=== PATIENT | female | born 1945 | race Caucasian/White ===

== ENCOUNTER 2022-03-10 15:16 | Outpatient (CLI) | payer MEDICARE, SELFPAY ==
--- NOTE | 2022-03-10 15:30 | CRLHL7_ITS ---
For Patients: As a result of the Century Cures Act, medical imaging exams and procedure reports are released immediately into your electronic medical record. You may view this report before your referring provider. If you have questions, please contact your health care provider. DXA BONE MINERAL DENSITY STUDY Current height (in): 65.5. Weight (lb): 154. Menopause age: 55. Ethnicity: White. 1. Have you had a previous hip or vertebral fracture? No. 2. Have you had any fractures during your adult life which did not result from significant trauma (e.g., auto accident)? No. 3. Did either of your parents have a hip fracture? No. 4. Do you smoke? No. 5. Have you ever taken Glucocorticoids? No. 6. Do you have rheumatoid arthritis? No. 7. Do you have secondary osteoporosis? No. 8. Do you drink 3 or more alcoholic drinks per day? No. 9. Are you being treated for osteoporosis? No. 10. Have you ever taken any of the following medications: Actonel, Evista, Fosamax, Miacalcin, Reclast, Boniva, Forteo, HRT (i.e. estrogen/hormone therapy), Protelos, Prolia, Vitamin D, Calcium, other ??? please specify. ANSWER: Yes, vitamin D, calcium. 11. Do you have any of the following medical conditions: Anorexia or bulimia, asthma or emphysema, end stage renal disease, hyperparathyroidism, any seizure disorders, cancer, inflammatory bowel diseases, hysterectomy, other ??? please specify. ANSWER: Yes, cancer. 12. What was your maximum height (inches)? 65.5. 13. Do you perform weight bearing exercise regularly? Yes. 14. Do you regularly consume dairy products? Yes. 15. Do you drink caffeinated beverages? Yes. 16. At what age did your period start? 12. 17. Are you premenopausal? No. 18. How many full term pregnancies have you had? 0. 19. Have you ever missed your period for more than 6 months in a row (not including or menopause)? No. TECHNIQUE: Bone mineral density study was performed using the Provasculon. FINDINGS: The results of the study expressed as bone mineral density (BMD) are as follows: Lumbar spine L1 to L3: BMD: 0.918 g/cm2. T-score: -0.9. Z-score: 1.5. Neck Left: BMD: 0.777 g/cm2. T-score: -0.6. Z-score: 1.5. Right: BMD: 0.727 g/cm2. T-score: -1.1. Z-score: 1.1. Total Left: BMD: 0.848 g/cm2. T-score: -0.8. Z-score: 1.1. Right: BMD: 0.801 g/cm2. T-score: -1.2. Z-score: 0.7. IMPRESSION: Osteopenia. *Comparison exams done prior to 01/2020 were performed on different unit, [employer]. COMPARISON: Compared with scan of 2016, the bone mineral density has decreased by 6.9 percent at the spine and decreased by 3.7 percent at the hip. Compared with scan of 2014, the bone mineral density has decreased by 0.5 percent at the spine and decreased by 1.8 percent at the hip. FRAX 10-year Fracture Risk Major Osteoporotic Fracture: 11 percent Hip Fracture: 2.0 percent Reported Risk Factors: [place] () Neck BMD = 0.727, BMI = 25.2 Gonsalo Webster M.D. Diagnostic/Nuclear Medicine Radiologist [email or web address] DELLA/Dictated by: Gonsalo Webster MD @ 03/11/2022 11:18:00 AM (Electronically Signed)
== END 2022-03-10 15:17 | disposition home or self-care (01) ==
PROVIDERS: PCP Family Medicine; Visit Provider Family Medicine
DX: M85.80 Other specified disorders of bone density and structure, unspecified site (principal); M85.89 Other specified disorders of bone density and structure, multiple sites
CPT/HCPCS: 77080

== ENCOUNTER 2022-06-21 10:47 | Outpatient (CLI) | payer MEDICARE, SELFPAY ==
--- NOTE | 2022-06-21 11:00 | CRLHL7_ITS ---
For Patients: As a result of the Century Cures Act, medical imaging exams and procedure reports are released immediately into your electronic medical record. You may view this report before your referring provider. If you have questions, please contact your health care provider. Indication: Left lower quadrant pain Technique: Contrast abdomen and pelvis Comparison: CT abdomen and pelvis 04/24/2019 Findings: Heart size there is normal. Basilar atelectasis. Liver pancreas unremarkable. Tiny too small to characterize low attenuation lesion in the right hepatic lobe. Cholecystectomy biliary dilatation kidneys are unremarkable. Urinary bladder decompressed. Diverticulosis abundant stool in the colon bowel appears unremarkable. No suspicious bony lesions are seen. Impression: 1. No acute findings in the abdomen or pelvis. Diverticulosis. Abundant stool in the colon. Please note that all CT scans at this facility use dose modulation, iterative reconstruction, and/or weight-based dosing when appropriate to reduce radiation dose to as low as reasonably achievable. Dictated by Camilla Denton MD @ 06/21/2022 1:33:53 PM (Electronically Signed)
[2022-06-21 11:15] LABS: Creatinine* 0.6 mg/dL (0.5-1.5); Estimated Glomerular Filt Rate 92 ml/min
== END 2022-06-21 10:48 | disposition home or self-care (01) ==
LOC: CT 10:47
PROVIDERS: PCP Family Medicine; Visit Provider Physician Assistant Medical
DX: R10.32 Left lower quadrant pain (principal)
CPT/HCPCS: 36415; 74177; 82565; Q9967

== ENCOUNTER 2023-03-31 09:38 | Outpatient (CLI) | payer MEDICARE, SELFPAY | END 2023-03-31 09:39 | disposition home or self-care (01) | LOC: NFLDREF 04-06 08:29 | PROVIDERS: PCP Physician Assistant Medical; Referring Provider Physician Assistant Medical; Visit Provider Physician Assistant Medical | DX: D64.9 Anemia, unspecified (principal); D69.6 Thrombocytopenia, unspecified | CPT/HCPCS: 82607; 82746; 83540; 83550 ==

== ENCOUNTER 2023-04-07 08:30 | Outpatient (CLI) | payer MEDICARE, SELFPAY | END 2023-04-07 08:31 | disposition home or self-care (01) | LOC: NFLDREF 04-09 10:57 | PROVIDERS: PCP Physician Assistant Medical; Referring Provider Physician Assistant Medical; Visit Provider Physician Assistant Medical | DX: E78.5 Hyperlipidemia, unspecified (principal); I10 Essential (primary) hypertension | CPT/HCPCS: 80061; 82947 ==

== ENCOUNTER 2023-04-28 14:54 | Outpatient (CLI) | payer MEDICARE, SELFPAY ==
--- NOTE | 2023-04-28 15:00 | CRLHL7_ITS ---
For Patients: As a result of the Cures Act, medical imaging exams and procedure reports are released immediately into your electronic medical record. You may view this report before your referring provider. If you have questions, please contact your health care provider. INDICATION: DISORDER OF THYROID, UNSPECIFIED COMPARISON: none TECHNIQUE: Sapp scale and color Doppler images were acquired of the thyroid gland. FINDINGS: Left thyroid lobe is absent. The right lobe measures 3.9 x 1.5 x 1.4 cm. The thyroid echotexture is heterogeneous. Cystic nodule is present within the lower pole of the right thyroid lobe measuring 6 x 3 x 6 millimeters. The isthmus measures 4 millimeters. The color Doppler images demonstrate increased vascularity. There is no evidence of cervical lymphadenopathy or parathyroid mass. IMPRESSION: Benign cystic nodule lower pole right thyroid lobe measuring 6 millimeters. Heterogeneous echotexture of the remaining thyroid with increased vascularity. Left thyroid lobe is absent. Dictated by Amilcar Vinson MD @ 04/29/2023 11:44:43 AM (Electronically Signed)
== END 2023-04-28 14:55 | disposition home or self-care (01) ==
LOC: US 14:54
PROVIDERS: PCP Physician Assistant Medical; Visit Provider Physician Assistant Medical
DX: E07.9 Disorder of thyroid, unspecified (principal); E04.1 Nontoxic single thyroid nodule
CPT/HCPCS: 76536

== ENCOUNTER 2024-01-23 15:18 | Outpatient (CLI) | payer MEDICARE, SELFPAY ==
--- OUTSIDE RECORDS SUMMARY | 2024-01-23 15:35 | XMS_ITS ---
Author Organization [facility] Address [address] [place] [address] Care Team Providers Care Rn Neonatal Name Role Phone Unavailable Unavailable Unavailable Surgery Details Not on file Complications Check Surgery Details section. Procedure Estimated Blood Loss Check Surgery Details section. Procedure Findings Check Surgery Details section. Procedure Specimens Taken Check Surgery Details section.
--- OUTSIDE RECORDS SUMMARY | 2024-01-23 15:35 | XMS_ITS | Referral Summary ---
Author Organization [facility] Address [address] [place] [address] Care Team Providers Care Fisher Diving Name Role Phone Unavailable Primary Care Provider Unavailabl e Source Comments Patient records contain information from all sites at [facility]. For routine questions regarding patient records, call [phone] during business hours, M-F 8:00 AM - 5:00 PM Central Time. Record requests for emergency care only can be directed to [phone] at any time.[facility] Allergies Active Allergy Reactions Criticality Noted Date Comments Azithromycin Other (see comments) 12/22/2020 Heart palpatations Corticosteroids (Glucocorticoids) Palpitations Medium 04/26/2022 Prednisone Palpitations 04/10/2009 Simvastatin Other (see comments) 04/13/2015 Leg pain Medications Medication Sig Dispensed Refills Start Date End Date Status rosuvastatin (CRESTOR) 5 mg tablet Take 0.5 tablets (2.5 mg total) by mouth daily. 15 tablet 11 05/21/2019 Active Additional Information Patient taking differently: 5 mgoral2 times weekly, Reported on 04/26/[address] tablet Take 81 mg by mouth daily. Active ezetimibe (ZETIA) 10 mg tablet Take 10 mg by mouth daily. 04/08/2021 Active triamcinolone (KENALOG) 0.1 % cream Apply 1 application topically 2 (two) times a week. 12/18/2020 Active polyethylene glycol (MIRALAX) 17 gram/dose oral powder Take 17 g by mouth daily. Active CALCIUM CITRATE-VITAMIN D3 ORAL Take 1 tablet by mouth daily. Citracal Petites Active losartan-hydroCHLOR Othiazide (HYZAAR) 50-12.5 mg per tablet Take 1 tablet by mouth daily. 03/02/2022 Active metoprolol succinate (TOPROL-XL) 25 mg 24 hr tablet 25 mg daily. 12/25/2022 Active amoxicillin (AMOXIL) 500 mg capsule Take 4 caps (2000 mg) 1 hour prior to invasive dental procedure. 4 capsule 11 03/08/2023 Active traZODone (DESYREL) 50 mg tablet Take 50 mg by mouth at bedtime as needed. Active Active Problems Problem Noted Date Diagnosed Date Replacement Aortic Valve Tissue 05/25/2023 Chronic Diastolic (Congestive) Heart Failure Overweight Body Mass Index 25-29.9 Adult 023 Cancer Breast Personal History 03/07/2023 Stenosis Aortic Valve Acquired 04/29/2022 Hyperlipidemia On Treatment 04/29/2022 Atherosclerotic Heart Diseas e Of [place] Coronary Artery Without Angina Pectoris 04/29/2022 Hypertension Essential Primary 04/29/2022 Last Assessment & Plan: Mrs. Diaz is a very pleasant 77-year-old female who was seen in the [facility] for a 1 year follow up of aortic stenosis. She has been doing well over the past year from a heart standpoint. She denies any new cardiopulmonary symptoms today. She continues to be very physically active with walking 2 days a week, playing [employer] ball 1 day a week, and golfing 1 day a week. She also frequently hikes year- round. She is NYHA class 1. I reviewed her test results with her in detail. All of her labs are within normal limits. Her cholesterol levels are well controlled on her current medication regimen. Her NT proBNP is completely normal. Her chest x-ray shows no significant change compared to 04/29/2021 and shows stable borderline cardiac enlargement with aortic calcifications. Her ECG shows normal sinus rhythm. Her TTE from today demonstrated moderate-severe aortic valve stenosis with a systolic mean gradient of 36 mmHg, valve area of 0.93 cm2 and peak aortic valve systolic velocity of 3.9 m/sec. On physical exam she has a 3/6 systolic ejection murmur that is late peaking and radiates to the carotids and apex. She has preserved S2 and normal carotid upstroke. She appears euvolemic. Her blood pressures are well controlled on her new antihypertensive regimen. At the present time she has asymptomatic moderate-severe aortic stenosis and does not yet meet criteria for aortic valve replacement. We discussed symptoms to be watchful for and recommend follow-up in 6 months or sooner if she develops symptoms. She was commended on her commitment to her health with joining weight watchers and monitoring her blood pressures. I have encouraged her to continue to be as physically active as tolerated. Immunizations Name Administration Dates Next Due Influenza Split 05/15/2008 Social History Tobacco Use Types Packs/Day Years Used Date Smoking Tobacco: Former Cigarettes Smokeless Tobacco: Never Tobacco Cessation:Counseling Given: Not Answered Comments:Smoked socially for about 2 years while in teens Alcohol Use Standard Drinks/Week Comments Yes 0 (1 standard drink = 0.6 oz pur e alcohol) occ. social drink Humiliation, Afraid, Rape, and Kick questionnair e Answer Date Recorded Within the last year, have y ou been afraid of your partner or ex-partner? No 02/25/2023 Within the last year, have y ou been humiliated or emotionally abused in other ways by your partner or ex-partner? No Within the last year, have y ou been kicked, hit, slapped, or otherwise physically hurt by your partner or ex-partner? No 02/25/2023 Within the last year, have y ou been raped or forced to have any kind of sexual activity by your partner or ex-partner? No 02/25/2023 Social Connection and Isolat ion Panel [NHANES] Answer Date Recorded Frequency of Communication w ith Friends and Family Three times a week 05/16/2019 Frequency of Social Gatherin gs with Friends and Family Twice a week 05/16/2019 Attends Yazdanism Services More than 4 times per year 05/16/2019 Active Member of Clubs or Organizations Yes 05/16/2019 Attends Club or Organization Meetings More than 4 times per year 05/16/2019 Marital Status 05/16/2019 AUDIT-C Answer Date Recorded Frequency of Alcohol Consumption Monthly or less 02/03/2019 Average Number of Drinks 1 or 2 019 Frequency of Binge Drinking Never 01/14 Overall Financial Resource Strain (CARDIA) Answe r Date Recorded How hard is it for you to pa y for the very basics like food, housing, medical care, and heating? Not hard at all 02/25/2023 [facility] - Occupational Stress Questionnaire Answer Date Recorded Feeling of Stress Not at all 02/03/2019 Exercise Vital Sign Answer Date Recorde d On average, how many days pe r week do you engage in moderate to strenuous exercise (like a brisk walk)? 6 days 02/22/2023 On average, how many minutes do you engage in exercise at this level? 60 min 02/22/2023 Hunger Vital Sign Answer Date Recorded Within the past 12 months, y ou worried that your food would run out before you got the money to buy more. Never true 02/26/20 Within the past 12 months, t he food you bought just didn't last and you didn't have money to get more. Never true 02/25/2023 PRAPARE - Transportation Answer Date Re corded In the past 12 months, has l ack of transportation kept you from medical appointments or from getting medications? No 02/12 In the past 12 months, has l ack of transportation kept you from meetings, work, or from getting things needed for daily living? No 02/25/2023 Nutrition Answer Date Recorded Nutrition: EVOO Fat Source Unknown 02/22 On average, how many serving s of fruits and vegetables do you eat per day (serving size is equal to 1 cup or approximately the size of a tennis ball)? 3-5 02/22/2023 Dental Answer Date Recorded Dental: Regular Dentist Yes 02/23/20 Employment Answer Date Recorded Employment status Retired 02/22/2023 Housing Stability Answer Date Recorded What is your living situation today? I have a [place] place to live 02/25/2023 Education Answer Date Recorded What is the highest level of school you have completed or the highest degree you have received? Bachelor's degree (e.g., BA, AB, BS) 02/02/2019 Sex and Gender Information Value Date Recorded Sex Assigned at Female 02/22/2023 10:38 AM CDT Gender Identity Female 02/02/2019 9:17 PM CDT Sexual Orientation Straight 02/02/2019 9: 17 PM CDT Last Filed Vital Signs Vital Sign Reading Time Taken Comments Blood Pressure 115/67 05/25/2023 8:35 AM CDT Pulse 70 05/25/2023 8:35 AM CDT Temperature 36.4 ??C (97.5 ??F) 03/25/2023 4:05 PM CD T Respiratory Rate 14 03/25/2023 4:05 PM CDT Oxygen Saturation 96% 03/25/2023 4:05 PM CDT Inhaled Oxygen Concentration - - Weight 71.3 kg (157 lb 3 oz) 03/21/2023 9:06 AM CDT Height 167.3 cm (5' 5.87) 03/21/2023 9:06 AM CD T Body Mass Index 25.47 03/21/2023 9:06 AM CDT Plan of Treatment Upcoming Encounters Date Type Department Care Team (Latest Contact Info) Description 03/05/2024 10:15 AM CDT Clinical Communication Virtual Review in [place], [place] [address] [place] [phone] 03/08/2024 9:15 AM CDT Appointment Department of Radiology, [facility] in [place], [place] [address] [place] [phone] Shoshana Araujo APRN, C.NNicholasP., M.S.N. [address] [place] [phone] 03/08/2024 9:40 AM CDT Ancillary Procedure Department of Cardiovascular Medicine in [place], [place] [address] [place] [phone] Shoshana Araujo APRN, C.N.P., M.S.N. [address] [place] [phone] 03/08/2024 11:50 AM CDT Appointment Department of Laboratory Medicine and Pathology, [facility] in [place], [place] [address] [place] [phone] Shoshana Araujo APRN, C.N.Shelly., M.S.N. [address] [place] [phone] 03/08/2024 1:05 PM CDT Appointment Department of Cardiovascular Diseases in [place], [place] [address] [place] [phone] Shoshana Araujo APRN, C.NGilmar, M.S.N. [address] [place] [phone] Discharge Disposition: Home or Self Care 03/08/2024 4:00 PM CDT Office Visit Department of Cardiovascular Medicine in [place], [place] [address] [place] [phone] Derrick Malloy Jr., M.D. [address] [place] [phone] Medical Devices Implanted Type Area Robotics Engineer Device Identifier Shelf Expiration Date Model / Serial / Lot Breast Implant Breast Implant Bilateral : Breast Vlv Dayan S3 Ultra 23 - [id number] - [id number] Implanted:Qty : 1 on 03/07/2023 by Carrington Castillo M.D., Ph.D. at [facility] Cardiac Valve Prosthesis N/A: Heart [employer] 06/16/2025 [id number] / [id number] / Description:Aortic Valve Ocular Lens Ocular Lens Bilateral : Eye Procedures Procedure Name Priority Date/Time Associated Diagnosis Comments BASIC METABOLIC PANEL, S/P Routine 05/24/2023 1:02 PM CDT Chronic Diastolic (Congestive) Heart Failure (HCC) Stenosis Aortic Valve Acquired Atherosclerotic Heart Disease Of [place] Coronary Artery Without Angina Pectoris from Last 3 Months or Most Recently Relevant to Health Maintenance Results * (ABNORMAL) Basic Metabolic Panel (05/24/2023 1:02 PM CDT) [facility] Signature Potassium, S 4.9 3.6 - 5.2 mmol/L 05/24/2023 2:12 PM CDT DTL Sodium, S 142 135 - 145 mmol/L 05/24/2023 2:12 PM CDT DTL Chloride, S 103 98 - 107 mmol/L 05/24/2023 2:12 PM CDT DTL Bicarbonate, S 30(H) 22 - 29 mmol/L 05/24/2023 2:12 PM CDT DTL Anion Gap 9 7 - 15 05/24/2023 2:12 PM CDT DTL BUN (Blood Urea Nitrogen), S 20 6 - 21 mg/dL 05/24/2023 2:12 PM CDT DTL Creatinine 0.73 0.59 - 1.04 mg/dL 05/24/2023 2:12 PM CDT DTL Estimated GFR (eGFR) 84 >=60 mL/min/BSA 05/24/2023 2:12 PM CDT DTL Comment: Estimated GFR calculated using the 2020 CKD_EPI creatinine equation. Calcium, Total, S 9.5 8.8 - 10.2 mg/dL 05/24/2023 2:12 PM CDT DTL Glucose, S 144(H) 70 - 140 mg/dL 05/24/2023 2:12 PM CDT DTL Blood (Blood, Venous) 05/24/2023 1:02 PM CDT 05/24/2023 1:40 PM CDT Karine Stevenson APRNNRamon., M.S.N. LAB BLOOD ADD-ON [facility] [address] [place] [address], [facility] [address] [place] [address] from Last 3 Months or Most Recently Relevant to Health Maintenance Advance Directives For more information, please contact: [phone] * Full Code (Latest Code Status on File) Date Activated Date Inactivated Comments 03/07/2023 11:55 AM 03/08/2023 1:14 PM Question Answer Comments Full Code: Discussed
--- OUTSIDE RECORDS SUMMARY | 2024-01-23 15:35 | XMS_ITS | Clinical Summary ---
Author Organization [facility] Address [place], [place] [address] Care Team Providers Care Psychiatric Assistant Name Role Phone Claudia Ren PA-C Primary Care Provider [phone] Allergies Active Allergy Reactions Criticality Noted Date Comments Corticosteroids (Glucocorticoids) Palpitations Medium 04/10/2009 Simvastatin Myalgia 04/13/2015 Leg pain Medications Medication Sig Dispensed Refills Start Date End Date Status CALCIUM 600 600 MG ORAL TAB None Entered 0 Active aspirin (ECOTRIN) 81 mg enteric coated tablet Take 81 mg by mouth. Active ezetimibe (ZETIA) 10 mg tablet Take 1 Tablet (10 mg) by mouth once daily. 0 06/22/2022 Active rosuvastatin (CRESTOR) 5 mg tablet Take 1 Tablet (5 mg) by mouth every Tuesday and Tuesday. 0 06/22/2022 Active polyethylene glycol (Miralax) 17 g powder for solution Mix 17 g (1 Packet) in liquid then take by mouth once daily. 0 06/22/2022 Active sennosides (Senna Laxative) 8.6 mg tablet Take 1 Tablet (8.6 mg) by mouth once daily if needed for Constipation. 0 06/22/2022 Active loratadine (Claritin) 10 mg tablet Take 1 Tablet (10 mg) by mouth once daily if needed for Allergy Symptoms. 0 06/22/2022 Active docusate (Stool Softener) 50 mg capsule Take 1 Capsule (50 mg) by mouth two times daily. 0 07/01/2022 Active metoprolol succinate (Toprol XL) 25 mg Sustained-Release tabletIndications:Atri al fibrillation, unspecified type (HC) Take 1 Tablet (25 mg) by mouth once daily. 90 Tablet 3 07/01/2022 Active losartan-hydrochloroth iazide, 50-12.5 mg, (Hyzaar) 50-12.5 mg tabletIndications:Prim abdi hypertension Take 1 Tablet by mouth once daily. Take 1/2 tablet daily 90 Tablet 1 05/02/2023 Active Active Problems Problem Noted Date Diagnosed Date Sensorineural hearing loss (SNHL) of both ears 1 08/23/2022 Aortic valve stenosis 04/29/2022 Atherosclerotic heart diseas e of [place] coronary artery without angina pectoris 04/29/2022 Primary hypertension 04/29/2022 Overview: Last Assessment & Plan: Mrs. Diaz is a very pleasant 77-year-old female who was seen in the [facility] for a 1 year follow up of aortic stenosis. She has been doing well over the past year from a heart standpoint. She denies any new cardiopulmonary symptoms today. She continues to be very physically active with walking 2 days a week, playing [employer] ball 1 day a week, and golfing [...] to be as physically active as tolerated. Hyperlipidemia 05/23/2012 Overview: Other and unspecified hyperlipidemia Hyperparathyroidism 05/23/2012 Overview: S/p partial paroidectomy Migraine 05/23/2012 Osteoarthritis of multiple joints 05/23/2012 Overview: Osteoarthrosis involving, or with mention of more than one site, but not specified as generalized, multiple sites Osteopenia 05/23/2012 Rheumatoid factor positive 05/23/2012 S/P partial thyroidectomy 05/23/2012 Social History Tobacco Use Types Packs/Day Years Used Date Smoking Tobacco: Former Cigarettes 0.1 3 Smokeless Tobacco: Never Alcohol Use Standard Drinks/Week Comments Yes 0 (1 standard drink = 0.6 oz pur e alcohol) 1 drink monthly Social Connections Answer Date Recorded Frequency of Communication with Friends and Fami ly Not on file 06/22/2022 Sex and Gender Information Value Date Recorded Sex Assigned at Not on file Gender Identity Not on file Sexual Orientation Not on file Obstetrics History Last Filed Vital Signs Vital Sign Reading Time Taken Comments Blood Pressure 134/82 07/01/2022 3:35 PM CUT FILE CLERK Pulse 76 07/01/2022 3:35 PM CUT FILE CLERK Temperature - - Respiratory Rate 16 06/22/2022 3:59 PM CUT FILE CLERK Oxygen Saturation 97% 07/01/2022 3:35 PM CUT FILE CLERK Inhaled Oxygen Concentration - - Weight 70.8 kg (156 lb) 07/01/2022 3:35 PM CUT FILE CLERK Height 165.1 cm (5' 5) 07/01/2022 3:35 PM CUT FILE CLERK Body Mass Index 25.96 07/01/2022 3:35 PM CUT FILE CLERK Plan of Treatment Health Maintenance Due Date Last Done Comments Tdap 02/16/1956 Depression screening for age 12+ 1957 Hepatitis C screening for ag e 18-79 1963 Tetanus booster 1965 Zoster (shingles) series for age 50+ (1 of 2) 1995 DEXA/DXA scan for age 65+ 2010 Medicare Wellness for age 65+ 2010 Pneumococcal series for age 65+ (1 of 1 - PCV) 2010 BMI (ht and wt on same day) for age 18+ 07/01/2023 07/01/2022 COVID-19 vaccine series (2022- season) 2023 06/09/2023, 06/09/2022, 12/24/2021, Additional history exists Influenza for age 65+ 04/15/2024 Care Teams Psychiatric Assistant Relationship Specialty Start Date End Date Claudia Ren PA-C [address] [place] [address] PCP - General Emergency Medicine 06/11/22
--- OUTSIDE RECORDS SUMMARY | 2024-01-23 15:35 | XMS_ITS | Clinical Summary ---
Author Organization [facility] Address [address] [place] [address] Care Team Providers Care Acquisition Marketing Manager Name Role Phone Unavailable Primary Care Provider Unavailabl e Source Comments Patient records contain information from all sites at [facility]. For routine questions regarding patient records, call [phone] during business hours, M-F 8:00 AM - 5:00 PM Central Time. Record requests for emergency care only can be directed to [phone] at any time.[facility] Allergies Active Allergy Reactions Criticality Noted [...] Treatment 04/29/2022 Atherosclerotic Heart Diseas e Of [place] Coronary Artery Without Angina Pectoris 04/29/2022 Hypertension Essential Primary 04/29/2022 Last Assessment & Plan: Mrs. Diaz is a very pleasant 77-year-old female who was seen in the [facility] for a 1 year follow up of aortic stenosis. She has been doing well over the past year from a heart standpoint. She denies any new cardiopulmonary symptoms today. She continues to be very physically active with walking 2 days a week, playing [email or web address] ball 1 day a week, and golfing [...] and Family Twice a week 05/16/2019 Attends [employer] Services More than 4 times per year [...] and heating? Not hard at all 02/25/2023 [facility] [place] of Occupat ional Health - Occupational Stress [...] AM CDT Clinical Communication Virtual Review in [place], [place] [address] [place] [address] 03/08/2024 9:15 AM CDT Appointment Department of Radiology, [facility] in [place], [place] [address] [place] [phone] Shoshana Araujo APRN, C.NNicholasP., M.S.N. [address] [place] [phone] 03/08/2024 9:40 AM CDT Ancillary Procedure Department of Cardiovascular Medicine in [place], [place] [address] [place] [phone] Shoshana Araujo APRN, C.N.P., M.S.N. [address] [place] [phone] 03/08/2024 11:50 AM CDT Appointment Department of Laboratory Medicine and Pathology, [facility] in [place], [place] [address] [place] [phone] Shoshana Araujo APRN, C.N.P., M.S.N. [address] [place] [phone] 03/08/2024 1:05 PM CDT Appointment Department of Cardiovascular Diseases in [place], [place] [address] [place] [phone] Shoshana Araujo APRN, C.N.P., M.S.N. [address] [place] [phone] Discharge Disposition: Home or Self Care 03/08/2024 4:00 PM CDT Office Visit Department of Cardiovascular Medicine in [place], [place] [address] [place] [phone] Derrick Malloy Jr., M.D. [address] [place] [phone] Health Maintenance Due Date Last Done Comments Hepatitis C Screening 1945 Depression Screening (Annual PHQ-2) 08/15/2023 Fall Risk Screen (Annual) 08/15/2023 COVID-19 Vaccine (2022-2 4 season) 2023 06/09/2023, 06/09/2022, 12/24/2021, Additional history exists Creatinine Level (Kidney Fun ction Test) 05/24/2024 05/24/2023, 02/28/2023, 02/28/2023, Additional history exists Potassium Level 05/24/2024 05/24/2023, 02/12, 04/29/2022, Additional history exists Sodium Level 05/24/2024 05/24/2023, 02/12, 04/29/2022, Additional history exists Office Visit for Blood Press ure Check / Re-check 05/25/2024 05/25/2023 DTaP,Tdap,and Td Vaccines (3 - Td or Tdap) 06/22/2031 06/22/2021, 03/09/2011, 02/16/2005 Pneumococcal vaccine (65+ years) Completed 07, 03/03/2010 Zoster Vaccines Completed 06/01/2021, 03/18/2021 Influenza Vaccine Completed 06/09/2023, , 06/01/2021, Additional history exists Medical Devices Implanted Type Area Carbon Brush Maker Device Identifier Shelf Expiration Date Model / Serial / Lot Breast Implant Breast Implant Bilateral : Breast Vlv Dayan S3 Ultra 23 - [id number] - [id number] Implanted:Qty : 1 on 03/07/2023 by Carrington Castillo M.D., Ph.D. at [facility] Cardiac Valve Prosthesis N/A: Heart [employer] 06/16/2025 [id number] / [id number] / Description:Aortic Valve Ocular Lens Ocular Lens Bilateral : Eye Procedures Procedure Name Priority Date/Time Associated Diagnosis Comments BASIC METABOLIC PANEL, S/P Routine 05/24/2023 1:02 PM CDT Chronic Diastolic (Congestive) Heart Failure (HCC) Stenosis Aortic Valve Acquired Atherosclerotic Heart Disease Of [place] Coronary Artery Without Angina Pectoris from Last 3 Months or Most Recently Relevant to Health Maintenance Results * (ABNORMAL) Basic Metabolic Panel (05/24/2023 1:02 PM CDT) Potassium, S 4.9 3.6 - 5.2 mmol/L [...] Karine Stevenson APRNNRamon., M.S.N. LAB BLOOD ADD-ON [facility] [address] [place] [address], [place] [facility] [address] [place] [address] from Last 3 Months or Most Recently Relevant to Health Maintenance Advance Directives For more information, please contact: [phone] * Full Code (Latest Code Status on File) Date Activated Date Inactivated Comments 03/07/2023 11:55 AM 03/08/2023 1:14 PM Question Answer Comments Full Code: Discussed
--- OUTSIDE RECORDS SUMMARY | 2024-01-23 15:35 | XMS_ITS | Referral Summary ---
Author Organization [facility] Address [address] [place] [address] Care Team Providers Care Casket Upholsterer Name Role Phone Claudia Ren PA-C Primary Care Provider Social History Tobacco Use Types Packs/Day Years Used Date Smoking Tobacco: Never Assessed Adolescent Education Answer Date Record ed Getting School Help Needed Not on file 05/29 Sex and Gender Information Value Date Recorded Sex Assigned at Not on file Gender Identity Not on file Sexual Orientation Not on file Plan of Treatment Not on file Procedures Procedure Name Priority Date/Time Associated Diagnosis Comments COMPREHENSIVE METABOLIC PANEL STAT 12/22/2004 5:05 PM CDT from Last 3 Months or Most Recently Relevant to Health Maintenance Results * (ABNORMAL) Comprehensive metabolic panel (12/22/2004 5:05 PM CDT) Sodium 141 133 - 144 mmol/L [facility] Potassium 4.4 3.4 - 5.3 mmol/L [facility] Chloride 107 94 - 109 mmol/L [facility] Carbon Dioxide 28 20 - 32 mmol/L [facility] Glucose 93 60 - 110 mg/dL [facility] Urea Nitrogen 21 7 - 30 mg/dL [facility] Creatinine 0.80 0.60 - 1.30 mg/dL [facility] GFR Estimate 78 >60 mL/min/1.7 m2 [facility] GFR Estimate If Black >80 >60 mL/min/1.7 m2 [facility] Calcium 9.4 8.5 - 10.4 mg/dL [facility] AST 27 0 - 45 U/L [facility] Protein Total 6.4 6.0 - 8.2 g/dL [facility] Anion Gap 6 6 - 17 mmol/L [facility] Albumin 3.5 3.2 - 4.5 g/dL [facility] ALT 25 0 - 50 U/L [facility] Alkaline Phosphatase 166(H) 40 - 150 U/L [facility] Bilirubin Total 0.3 0.2 - 1.3 mg/dL [facility] 12/22/2004 5:05 PM CDT 12/22/2004 4:40 PM CDT Moody Marks MD LAB - BLOOD ORD ERABLES [facility] from Last 3 Months or Most Recently Relevant to Health Maintenance Care Teams Casket Upholsterer Relationship Specialty Start Date End Date Claudia Ren PA-C [facility] [address] [place] [address] PCP - General Physician Day Care Home Mother 03/15/23
--- OUTSIDE RECORDS SUMMARY | 2024-01-23 15:35 | XMS_ITS | Clinical Summary ---
Author Organization [facility] Address [address] [place] [address] Care Team Providers Care Early Morning Name Role Phone Needs Pcp, Assignment Primary Care Provider [phone] Source Comments You are receiving this document as you are listed as the primary care provider,follow-up provider, or the patient has been referred to you for consultation.This is in compliance with the Medicare and[facility] EHR Incentive Program,which states Providers who transition their patient to another setting of careor provider of care or refers their patient to another provider of care shouldprovide summary care record for each transition of care or referral. [facility] Allergies Active Allergy Reactions Criticality Noted Date Comments Prednisone Palpitations 05/23/2012 Azithromycin Other, see comments 12/22/2020 Heart palpatations Medications Medication Sig Dispensed Refills Start Date End Date Status ibuprofen (AKA MOTRIN) 200 MG tablet Take by mouth. 400-600 mg up to 3 times a day when stomach is not empty. 30 tablet 0 05/23/2012 Active acetaminophen (AKA TYLENOL EXTRA STRENGTH) 500 MG tablet Take 1-2 tablets by mouth every 6 hours as needed for Pain. Maximum 4000 mg per 24 hours 100 tablet 0 05/23/2012 Active SUMAtriptan (AKA IMITREX) 50 MG tablet Take 50 mg by mouth as needed. May repeat after 2 hours if needed. Max 4 tab/24 hours. Max 9 days/month 05/23/2012 Active Cholecalciferol 400 UNITS Take by mouth 2 times daily. 05/23/2012 Active pravastatin (AKA PRAVACHOL) 10 MG tablet Take 10 mg by mouth daily (every 24 hours). 05/23/2012 Active Coenzyme Q10 (COQ-10 OR) Take 100 mg by mouth daily (every 24 hours). 05/23/2012 Active omega-3 fatty acids (FISH OIL) 1000 MG capsule Take by mouth. 05/23/2012 Active Calcium Carb-Cholecalciferol 600-1000 MG-UNIT TABS Take by mouth. 05/23/2012 Active magnesium 250 MG Take by mouth. 05/23/2012 Acti ve aspirin EC (ASPIRIN LOW DOSE) 81 MG enteric coated tablet Active EZETIMIBE-ATORVASTAT IN OR 12/18/2020 Active Rosuvastatin Calcium 5 MG CPSP Active triamcinolone acetonide (TRIDERM) 0.1 % cream 12/18/2020 Active Active Problems Problem Noted Date Diagnosed Date Headache 05/23/2012 Overview: Headache(784.0) Hyperparathyroidism 05/23/2012 Overview: S/p partial paroidectomy Hyperlipidemia 05/23/2012 Overview: Other and unspecified hyperlipidemia Osteopenia 05/23/2012 Migraine 05/23/2012 S/P partial thyroidectomy 05/23/2012 Osteoarthritis of multiple joints 05/23/2012 Overview: Osteoarthrosis involving, or with mention of more than one site, but not specified as generalized, multiple sites Rheumatoid factor positive 05/23/2012 Immunizations Name Administration Dates Next Due Flu Vac Preserv Free (3+yrs) 04/26/2012 Social History Tobacco Use Types Packs/Day Years Used Date Smoking Tobacco: Never Assessed Sex and Gender Information Value Date Recorded Sex Assigned at Not on file Gender Identity Not on file Sexual Orientation Not on file Last Filed Vital Signs Vital Sign Reading Time Taken Comments Blood Pressure 134/71 05/23/2012 1:29 PM CDT Pulse 73 05/23/2012 1:29 PM CDT Temperature - - Respiratory Rate - - Oxygen Saturation - - Inhaled Oxygen Concentration - - Weight 71.2 kg (157 lb) 05/23/2012 1:29 PM CDT Height - - Body Mass Index - - Plan of Treatment Health Maintenance Due Date Last Done Comments Hep C Screening (Preventive Services) 1945 Medicare Welcome Visit 1945 Zoster/Shingles (1 of 2) 1995 Dexa 2010 DTaP/Tdap/Td (2 - Tdap) 03/09/2021 03/09/2011, 02/16 COVID-19 Vaccine (3 - season) 2023 09/25/2020, 09/04/2020 Influenza (Season Ended) 2024 020, 06/07/2019, 06/03/2019, Additional history exists Pneumococcal 65+ Yrs Completed 02/24/2015, 03/03/20 10 HepA Aged Out No longer eligi ble based on patient's age to complete this topic HepB Aged Out No longer eligi ble based on patient's age to complete this topic Hib Aged Out No longer eligi ble based on patient's age to complete this topic IPV (Polio) Aged Out No longer eligi ble based on patient's age to complete this topic MCV4 Aged Out No longer eligi ble based on patient's age to complete this topic Care Teams Early Morning Relationship Specialty Start Date End Date Needs Pcp, [place] [address] PCP - General 06/05/21
--- OUTSIDE RECORDS SUMMARY | 2024-01-23 15:35 | XMS_ITS | Clinical Summary ---
Author Organization [facility] Address [address] [place] [address] Care Team Providers Care Gum Rolling Machine Operator Name Role Phone Claudia Ren PA-C Primary Care Provider Social History Tobacco Use Types Packs/Day Years Used Date Smoking Tobacco: Never Assessed Adolescent Education Answer Date Record ed Getting School Help Needed Not on file 05/29 Sex and Gender Information Value Date Recorded Sex Assigned at Not on file Gender Identity Not on file Sexual Orientation Not on file Plan of Treatment Health Maintenance Due Date Last Done Comments ADVANCE CARE PLANNING 1945 ANNUAL REVIEW OF HM ORDERS 1945 DEXA 1945 HEPATITIS C SCREENING 1963 LIPID 1985 RSV VACCINE ( & 60+) (1 - 1-dose 60+ series) 2005 GLUCOSE 12/23/2007 12/22/2004 FALL RISK ASSESSMENT 2010 MEDICARE ANNUAL WELLNESS VISIT 2010 COVID-19 Vaccine ( season) 2023 06/09/2022, 12/24/2021, 06/05/2021, Additional history exists PHQ-2 (once per calendar year) 2023 INFLUENZA VACCINE (Season Ended) 2024 06/09/2022, 06/01/2021, 06/04/2020, Additional history exists DTAP/TDAP/TD IMMUNIZATION (3 - Td or Tdap) 06/22/2031 06/22/2021, 03/09/2011, 02/16/2005 Pneumococcal Vaccine: 65+ Years Completed 02/24/2015, 03/03/2010 ZOSTER IMMUNIZATION Completed 06/01/2021, HPV IMMUNIZATION Aged Out No longer e ligible based on patient's age to complete this topic IPV IMMUNIZATION Aged Out No longer e ligible based on patient's age to complete this topic MENINGITIS IMMUNIZATION Aged Out No l onger eligible based on patient's age to complete this topic RSV MONOCLONAL ANTIBODY Aged Out No l onger eligible based on patient's age to complete this topic Procedures Procedure Name Priority Date/Time Associated Diagnosis [...] Recently Relevant to Health Maintenance Care Teams Gum Rolling Machine Operator Relationship Specialty Start Date End Date Claudia Ren PA-C [facility] [address] [place] [address] PCP - General Physician Chemical Manager 03/15/23
== END 2024-01-23 15:19 | disposition home or self-care (01) ==
PROVIDERS: PCP Physician Assistant Medical; Visit Provider Internal Medicine
DX: I10 Essential (primary) hypertension (principal); E78.5 Hyperlipidemia, unspecified; M85.80 Other specified disorders of bone density and structure, unspecified site
CPT/HCPCS: 80048; 80061; 82306

== ENCOUNTER 2024-02-22 14:11 | Outpatient (CLI) | payer MEDICARE, SELFPAY ==
--- OUTSIDE RECORDS SUMMARY | 2024-02-22 14:14 | XMS_ITS | Clinical Summary ---
Author Organization [facility] Address [address] [place] [address] Care Team Providers Care Surgical Aide Name Role Phone Claudia Ren PA-C Primary [...] Recently Relevant to Health Maintenance Care Teams Surgical Aide Relationship Specialty Start Date End Date Claudia Ren PA-C [facility] [address] [place] [address] PCP - General Physician Electrical Electronics Engineers 03/15/23
--- OUTSIDE RECORDS SUMMARY | 2024-02-22 14:14 | XMS_ITS | Referral Summary ---
Author Organization [facility] Address [address] [place] [address] Care Team Providers Care Park Services Specialist Name Role Phone Claudia Ren PA-C Primary [...] Recently Relevant to Health Maintenance Care Teams Park Services Specialist Relationship Specialty Start Date End Date Claudia Ren PA-C [facility] [address] [place] [address] PCP - General Physician Tong Hooker 03/15/23
--- OUTSIDE RECORDS SUMMARY | 2024-02-22 14:15 | XMS_ITS | Clinical Summary ---
Author Organization [facility] Address [address] [place] [address] Care Team Providers Care Preconstruction Manager Name Role Phone Needs Pcp, Assignment Primary Care Provider [phone] Source Comments You are receiving this document as you are listed as the primary care provider,follow-up provider, or the patient has been referred to you for consultation.This is in compliance with the Medicare and[facility] Hospital[facility] EHR Incentive Program,which states Providers who transition their patient to another setting of careor provider of care or refers their patient to another provider of care shouldprovide summary care record for each transition of care or referral. [facility] Allergies Active Allergy Reactions Criticality Noted Date [...] (3 - season) 2023 09/25/2020, 09/04/2020 Influenza (#1) 2024 06/04/2020, 05/16, 06/03/2019, Additional history exists Pneumococcal 65+ Yrs [...] age to complete this topic Care Teams Preconstruction Manager Relationship Specialty Start Date End Date Needs Pcp, [place] [address] PCP - General 06/05/21
--- OUTSIDE RECORDS SUMMARY | 2024-02-22 14:15 | XMS_ITS | Clinical Summary ---
Author Organization [facility] Address [place], [place] [address] Care Team Providers Care Grounds Maintenance Supervisor Name Role Phone Claudia Ren PA-C Primary Care Provider [phone] Allergies Active Allergy Reactions Criticality Noted Date [...] stenosis 04/29/2022 Atherosclerotic heart diseas e of [place] coronary artery without angina pectoris 04/29/2022 Primary hypertension 04/29/2022 Overview: Last Assessment & Plan: Mrs. Diaz is a very pleasant 77-year-old female who was seen in the [facility] for a 1 year follow up of aortic stenosis. She has been doing well over the past year from a heart standpoint. She denies any new cardiopulmonary symptoms today. She continues to be very physically active with walking 2 days a week, playing [employer] ball 1 day a week, and golfing [...] Comments Blood Pressure 134/82 07/01/2022 3:35 PM SOLVENT PLANT OPERATOR Pulse 76 07/01/2022 3:35 PM SOLVENT PLANT OPERATOR Temperature - - Respiratory Rate 16 06/22/2022 3:59 PM SOLVENT PLANT OPERATOR Oxygen Saturation 97% 07/01/2022 3:35 PM SOLVENT PLANT OPERATOR Inhaled Oxygen Concentration - - Weight 70.8 kg (156 lb) 07/01/2022 3:35 PM SOLVENT PLANT OPERATOR Height 165.1 cm (5' 5) 07/01/2022 3:35 PM SOLVENT PLANT OPERATOR Body Mass Index 25.96 07/01/2022 3:35 PM SOLVENT PLANT OPERATOR Plan of Treatment Health Maintenance Due Date [...] Influenza for age 65+ 04/15/2024 Care Teams Grounds Maintenance Supervisor Relationship Specialty Start Date End Date Claduia Ren PA-C [address] [place] [address] PCP - General Emergency Medicine 06/11/22
--- OUTSIDE RECORDS SUMMARY | 2024-02-22 14:15 | XMS_ITS | Clinical Summary ---
Author Organization [facility] Address [address] [place] [address] Care Team Providers Care Electric Switch Tester Name Role Phone Unavailable Primary Care Provider Unavailabl e Source Comments Patient records contain information from all sites at [facility]. For routine questions regarding patient records, call [phone] during business hours, M-F 8:00 AM - 5:00 PM Central Time. Record requests for emergency care only can be directed to [phone] at any time.[facility] Allergies Active Allergy Reactions Criticality Noted [...] Treatment 04/29/2022 Atherosclerotic Heart Diseas e Of [place] Coronary Artery Without Angina Pectoris 04/29/2022 Hypertension Essential Primary 04/29/2022 Last Assessment & Plan: Mrs. Diaz is a very pleasant 77-year-old female who was seen in the [facility] for a 1 year follow up of aortic stenosis. She has been doing well over the past year from a heart standpoint. She denies any new cardiopulmonary symptoms today. She continues to be very physically active with walking 2 days a week, playing [employer] ball 1 day a week, and golfing [...] and Family Twice a week 05/16/2019 Attends [employer] Services More than 4 times per year [...] and heating? Not hard at all 02/25/2023 [facility] [place] of Occupat ional Health - Occupational Stress [...] AM CDT Clinical Communication Virtual Review in [place], [place] 200 [place] [phone] 03/08/2024 9:15 AM CDT Appointment Department of Radiology, [place], [place] [address] [place] [phone] Shoshana Araujo APRN, C.N.P., M.S.N. [address] [place] [phone] 03/08/2024 9:40 AM CDT Ancillary Procedure Department of Cardiovascular Medicine in [place], [place] [address] [place] [phone] Shoshana Araujo APRN, C.N.P., M.S.N. [address] [place] [phone] 03/08/2024 11:50 AM CDT Appointment Department of Laboratory Medicine and Pathology, [facility] in [place], [place] [address] [place] [phone] Shoshana Araujo APRN, C.N.P., M.S.N. [address] [place] [phone] 03/08/2024 1:05 PM CDT Appointment Department of Cardiovascular Diseases in [place], [place] [address] [place] [phone] Shoshana Araujo APRN, C.N.P., M.S.N. [address] [place] [phone] Discharge Disposition: Home or Self Care 03/08/2024 4:00 PM CDT Office Visit Department of Cardiovascular Medicine in [place], [place] [address] [place] [phone] Derrick Malloy Jr., M.D. [address] [place] [phone] Health Maintenance Due Date Last Done Comments Hepatitis C Screening 1945 Depression Screening (Annual PHQ-2) 08/15/2023 Fall Risk Screen (Annual) 08/15/2023 COVID-19 Vaccine (2022-09 4 season) 2023 06/09/2023, 06/09/2022, 12/24/2021, Additional history exists Influenza Vaccine (#1) 2024 , 06/09/2022, 06/01/2021, Additional history exists Creatinine Level (Kidney Fun ction Test) 05/24/2024 05/24/2023, 02/28/2023, 02/28/2023, Additional history exists Potassium Level 05/24/2024 05/24/2023, 02/12, 04/29/2022, Additional history exists Sodium Level 05/24/2024 05/24/2023, 02/12, 04/29/2022, Additional history exists Office Visit for Blood Press ure Check / Re-check 05/25/2024 05/25/2023 DTaP,Tdap,and Td Vaccines (3 - Td or Tdap) 06/22/2031 06/22/2021, 03/09/2011, 02/16/2005 Pneumococcal vaccine (65+ years) Completed 02/25/20 15, 03/03/2010 Zoster Vaccines Completed 06/01/2021, 03/18/2021 Medical Devices Implanted Type Area Committee Member Device Identifier Shelf Expiration Date Model / Serial / Lot Breast Implant Breast Implant Bilateral : Breast Vlv Dayan S3 Ultra 23 - [id number] - [id number] Implanted:Qty : 1 on 03/07/2023 by Carrington Castillo M.D., Ph.D. at [facility] Cardiac Valve Prosthesis N/A: Heart [employer] 06/16/2025 [id number] / [id number] / Description:Aortic Valve Ocular Lens Ocular Lens Bilateral : Eye Procedures Procedure Name Priority Date/Time Associated Diagnosis Comments BASIC METABOLIC PANEL, S/P Routine 05/24/2023 1:02 PM CDT Chronic Diastolic (Congestive) Heart Failure (HCC) Stenosis Aortic Valve Acquired Atherosclerotic Heart Disease Of [place] Coronary Artery Without Angina Pectoris from Last 3 Months or Most Recently Relevant to Health Maintenance Results * (ABNORMAL) Basic Metabolic Panel (05/24/2023 1:02 PM CDT) Pathologist [facility] Potassium, S 4.9 3.6 - 5.2 mmol/L [...] 1:02 PM CDT 05/24/2023 1:40 PM CDT Christ Hernandez APRN, C.N.P., M.S.N. LAB BLOOD ADD-ON [facility] [address] [place] [address], [facility] [address] [place] [address] from Last 3 Months or Most Recently Relevant to Health Maintenance Advance Directives For more information, please contact: [phone] * Full Code (Latest Code Status on File) Date Activated Date Inactivated Comments 03/07/2023 11:55 AM 03/08/2023 1:14 PM Question Answer Comments Full Code: Discussed
--- OUTSIDE RECORDS SUMMARY | 2024-02-22 14:15 | XMS_ITS ---
Author Organization [facility] Address [address] [place] [address] Care Team Providers Care Epic Cupid Analyst Name Role Phone Unavailable Unavailable Unavailable Surgery Details Not on file Complications Check Surgery Details section. Procedure Estimated Blood Loss Check Surgery Details section. Procedure Findings Check Surgery Details section. Procedure Specimens Taken Check Surgery Details section.
--- OUTSIDE RECORDS SUMMARY | 2024-02-22 14:15 | XMS_ITS | Referral Summary ---
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 For routine questions regarding patient records, call [phone] during business hours, M-F 8:00 AM - 5:00 PM Central Time. Record requests for emergency care only can be directed to [phone] at any time.[facility] Allergies Active Allergy Reactions Criticality Noted Date [...] Treatment 04/29/2022 Atherosclerotic Heart Diseas e Of [place] Coronary Artery Without Angina Pectoris 04/29/2022 Hypertension Essential Primary 04/29/2022 Last Assessment & Plan: Mrs. Diaz is a very pleasant 77-year-old female who was seen in the [facility] for a 1 year follow up of aortic stenosis. She has been doing well over the past year from a heart standpoint. She denies any new cardiopulmonary symptoms today. She continues to be very physically active with walking 2 days a week, playing [employer] ball 1 day a week, and golfing [...] and Family Twice a week 05/16/2019 Attends Taoist Services More than 4 times per year [...] and heating? Not hard at all 02/25/2023 [facility] [place] of Occupat ional Health - Occupational Stress [...] AM CDT Clinical Communication Virtual Review in [place], [place] [address] [place] [address] 03/08/2024 9:15 AM CDT Appointment Department of Radiology, [place], [place] [address] [place] [phone] Shsohana Araujo APRN, C.N.P., M.S.N. [address] [place] [phone] 03/08/2024 9:40 AM CDT Ancillary Procedure Department of Cardiovascular Medicine in [place], [place] [address] [place] [phone] Shoshana Araujo APRN, C.N.P., M.S.N. [address] [place] [phone] 03/08/2024 11:50 AM CDT Appointment Department of Laboratory Medicine and Pathology, [facility] in [place], [place] [address] [place] [phone] Shoshana Araujo APRN, C.N.P., M.S.N. [address] [place] [address] 03/08/2024 1:05 PM CDT Appointment Department of Cardiovascular Diseases in [place], [place] [address] [place] [phone] Shoshana Araujo APRN, C.N.P., M.S.N. [address] [place] [phone] Discharge Disposition: Home or Self Care 03/08/2024 4:00 PM CDT Office Visit Department of Cardiovascular Medicine in [place], [place] [address] [place] [phone] Derrick Malloy Jr., M.D. [address] [place] [phone] Medical Devices Implanted Type Area Center Medical And Lab Director Device Identifier Shelf Expiration Date Model / Serial / Lot Breast Implant Breast Implant Bilateral : Breast Vlv Dayan S3 Ultra 23 - [id number] - [id number] Implanted:Qty : 1 on 03/07/2023 by Carrington Castillo M.D., Ph.D. at [facility] Cardiac Valve Prosthesis N/A: Heart [employer] 06/16/2025 [id number] / [id number] / Description:Aortic Valve Ocular Lens Ocular Lens Bilateral : Eye Procedures Procedure Name Priority Date/Time Associated Diagnosis Comments BASIC METABOLIC PANEL, S/P Routine 05/24/2023 1:02 PM CDT Chronic Diastolic (Congestive) Heart Failure (HCC) Stenosis Aortic Valve Acquired Atherosclerotic Heart Disease Of [place] Coronary Artery Without Angina Pectoris from Last [...] CDT 05/24/2023 1:40 PM CDT Karine Stevenson APRNNNicholasP., M.S.N. LAB BLOOD ADD-ON [facility] [address] [place] [address], [facility] [address] [place] [address] from Last 3 Months or Most Recently Relevant to Health Maintenance Advance Directives For more information, please contact: [phone] * Full Code (Latest Code Status on File) Date Activated Date Inactivated Comments 03/07/2023 11:55 AM 03/08/2023 1:14 PM Question Answer Comments Full Code: Discussed
--- NOTE | 2024-02-22 14:30 | CRLHL7_ITS ---
For Patients: As a result of the Century Cures Act, medical imaging exams and procedure reports are released immediately into your electronic medical record. You may view this report before your referring provider. If you have questions, please contact your health care provider. DXA BONE MINERAL DENSITY STUDY Reason for exam: History of osteopenia. Current height (in): 65. Weight (lb): 158. Menopause age: 50. Ethnicity: White. 1. Have you had a previous hip or vertebral fracture? No. 2. Have you had any fractures during your adult life which did not result from significant trauma (e.g., auto accident)? No. 3. Did either of your parents have a hip fracture? No. 4. Do you smoke? No. 5. Have you ever taken Glucocorticoids? No. 6. Do you have rheumatoid arthritis? No. 7. Do you have secondary osteoporosis? No. 8. Do you drink 3 or more alcoholic drinks per day? No. 9. Are you being treated for osteoporosis? No. 10. Have you ever taken any of the following medications: Actonel, Evista, Fosamax, Miacalcin, Reclast, Boniva, Forteo, HRT (i.e., estrogen/hormone therapy), Protelos, Prolia, Vitamin D, Calcium, other ??? please specify. ANSWER: Yes, vitamin D and calcium. 11. Do you have any of the following medical conditions: Anorexia or bulimia, asthma or emphysema, end stage renal disease, hyperparathyroidism, any seizure disorders, cancer, inflammatory bowel diseases, hysterectomy, other ??? please specify. ANSWER: Yes, cancer. 12. What was your maximum height (inches)? 65.5. 13. Do you perform weight bearing exercise regularly? Yes. 14. Do you regularly consume dairy products? Yes. 15. Do you drink caffeinated beverages? Yes. 16. At what age did your period start? 11. 17. Are you premenopausal? No. 18. How many full-term pregnancies have you had? 1. 19. Have you ever missed your period for more than 6 months in a row (not including or menopause)? Yes. TECHNIQUE: Bone mineral density study was performed using the [place] [employer]. FINDINGS: The results of the study expressed as bone mineral density (BMD) are as follows: Lumbar spine L1 to L3: BMD: 0.931 g/cm2. T-score: -0.8. Z-score: 1.8 Neck Left: BMD: 0.788 g/cm2. T-score: -0.6. Z-score: 1.7 Right: BMD: 0.759 g/cm2. T-score: -0.8. Z-score: 1.4 Total Left: BMD: 0.862 g/cm2. T-score: -0.7. Z-score: 1.3 Right: BMD: 0.809 g/cm2. T-score: -1.1. Z-score: 0.9 IMPRESSION: Osteopenia. *Comparison exams done prior to 01/2020 were performed on different unit, [employer]. COMPARISON: Compared with scan of 03/10/2022, the bone mineral density has increased by 1.5 percent at the spine and increased by 1.4 percent at the hip. Compared with scan of 07/28/2017, the bone mineral density has decreased by 6.9 percent at the spine and decreased by 3.7 percent at the hip. FRAX 10-year Fracture Risk Major Osteoporotic Fracture: 11% Hip Fracture: 1.8% Reported Risk Factors: [place] () Neck BMD=0.759, BMI=26.3 KAR GATICA M.D. Transcribed: 1:27 p.m. [email or web address] sina/Dictated by: Kar Gatica MD @ 02/24/2024 8:12:00 AM (Electronically Signed)
== END 2024-02-22 14:12 | disposition home or self-care (01) ==
LOC: RAD 14:12
PROVIDERS: PCP Internal Medicine; Visit Provider Internal Medicine
DX: M85.88 Other specified disorders of bone density and structure, other site (principal)
CPT/HCPCS: 77080

== ENCOUNTER 2024-03-19 11:14 | Outpatient (CLI) | payer MEDICARE, SELFPAY ==
--- OUTSIDE RECORDS SUMMARY | 2024-03-20 13:49 | XMS_ITS | Clinical Summary ---
Author Organization [facility] Address [address] [place] [id number] Care Team Providers Care Advertising Intern Name Role Phone Claudia Ren PA-C Primary [...] (once per calendar year) 2023 INFLUENZA VACCINE (#1) 2024 2, 06/01/2021, 06/04/2020, Additional history exists DTAP/TDAP/TD IMMUNIZATION [...] Recently Relevant to Health Maintenance Care Teams Advertising Intern Relationship Specialty Start Date End Date Claudia Ren PA-C [facility] [address] [place] [address] PCP - General Physician Florist 03/15/23
--- OUTSIDE RECORDS SUMMARY | 2024-03-20 13:50 | XMS_ITS | Encounter Summary ---
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 [address] [place] [phone] [facility] Referral ID Status Reason Start Date Expiration Date Visits Re quested Visits Authorized [id number] Closed 05/25/2023 05/24/2024 1 1 Reason for Visit * Outpatient (Routine) - Closed Specialty Diagnoses / Procedures Referred By Nathan galloway Referred To Contact Diagnoses Replacement Aortic Valve Tissue Procedures Echo Transthoracic (TTE) - Complex Valvular Heart Disease Shoshana Araujo APRN, C.N.Margi, M.S.N. [address] [place] [phone] [facility] Referral ID Status Reason Start Date Expiration Date Visits Re quested Visits Authorized [id number] Closed 05/25/2023 05/24/2024 1 1 Encounter Details Date Type Department Care Team (Latest Contact Info) Description 03/08/2024 12:11 PM CDT - 03/08/2024 11:59 PM CDT Hospital Encounter Department of Cardiovascular Diseases in [place], [place] [address] [place] [phone] Shoshana Araujo, EDA, C.N.P., M.S.N. [address] [place] [phone] Replacement Aortic Valve Tissue Discharge Disposition: Home or Self Care Social History Tobacco Use Types Packs/Day Years Used Date Smoking Tobacco: Former Cigarettes Smokeless Tobacco: Never Comments:Smoked socially for about 2 years while in teens Alcohol Use Standard Drinks/Week Comments Yes 0 (1 standard drink = 0.6 oz pur e alcohol) occ. social drink [facility] Utilities Answer Date Recorded In the past 12 months has e LOFT[employer], gas, oil, or water [employer] threatened to shut off services in your home? No 03/04/2024 Humiliation, Afraid, Rape, and Kick questionnair e [...] and Family Twice a week 05/16/2019 Attends Shinto Services More than 4 times per year [...] and heating? Not hard at all 02/25/2023 [facility] of Occupat ional Health - Occupational Stress Questionnaire Answer Date Recorded Feeling of Stress Not at all 02/03/2019 Exercise Vital Sign Answer Date Recorde d On average, how many days pe r week do you engage in moderate to strenuous exercise (like a brisk walk)? 5 days 03/04/2024 On average, how many minutes do you engage in exercise at this level? 60 min 03/04/2024 Hunger Vital Sign Answer Date Recorded Within the past 12 months, y ou worried that your food would run out before you got the money to buy more. Never true 03/04/20 24 Within the past 12 months, t he food you bought just didn't last and you didn't have money to get more. Never true 03/04/2024 PRAPARE - Transportation Answer Date Re corded In the past 12 months, has l ack of transportation kept you from medical appointments or from getting medications? No 02/13 In the past 12 months, has l ack of transportation kept you from meetings, work, or from getting things needed for daily living? No 03/04/2024 Nutrition Answer Date Recorded On average, how many serving s of fruits and vegetables do you eat per day (serving size is equal to 1 cup or approximately the size of a tennis ball)? 3-5 03/04/2024 Dental Answer Date Recorded Dental: Regular Dentist Yes 02/23/20 23 Employment Answer Date Recorded Employment status Retired 03/04/2024 Housing Stability Answer Date Recorded What is your living situation today? I have a [address] [place] place to live 03/04/2024 Education Answer Date Recorded What is the highest level of school you have completed or the highest degree you have received? Bachelor's degree (e.g., BA, AB, BS) 02/02/2019 Sex and Gender Information Value Date Recorded Sex Assigned at Female 02/22/2023 10:38 AM CDT Gender Identity Female 02/02/2019 9:17 PM CDT Sexual Orientation Straight 02/02/2019 9: 17 PM CDT documented as of this encounter Medications at Time of Discharge Medication Sig Dispensed Refills Start Date End Date amoxicillin (AMOXIL) 500 mg capsule Take 4 caps (2000 mg) 1 hour prior to invasive dental procedure. 4 capsule 11 03/08/[address] tablet Take 81 mg by mouth daily. CALCIUM CITRATE-VITAMIN D3 ORAL Take 1 tablet by mouth daily. Citracal Petites clobetasoL (Temovate) 0.05 % cream Apply 1 Application topically 2 (two) times a day. 01/23/2024 ezetimibe (ZETIA) 10 mg tablet Take 10 mg by mouth daily. 04/08/2021 losartan-hydroCHLOROth iazide (HYZAAR) 50-12.5 mg per tablet Take 1 tablet by mouth daily. 03/02/2022 metoprolol succinate (TOPROL-XL) 25 mg 24 hr tablet 25 mg daily. 12/25/2022 polyethylene glycol (MIRALAX) 17 gram/dose oral powder Take 17 g by mouth daily. traZODone (DESYREL) 50 mg tablet Take 50 mg by mouth at bedtime as needed. triamcinolone (KENALOG) 0.1 % cream Apply 1 application topically 2 (two) times a week. 12/18/2020 documented as of this encounter Plan of Treatment Upcoming Encounters Date Type Department Care Team (Latest Contact Info) Description 05/30/2024 2:55 PM CDT Appointment Department of Cardiovascular Diseases in [place], [place] [address] [place] [address] Derrick Malloy Jr., M.D. 200 [place] [phone] Discharge Disposition: Home or Self Care 05/31/2024 2:00 PM CDT Office Visit Department of Cardiovascular Medicine in [place], [place] [address] [place] [address] Derrick Malloy Jr., M.D. [address] [place] [phone] documented as of this encounter Procedures Procedure Name Priority Date/Time Associated Diagnosis Comments (TTE) 2D ECHO DOPPLER COLOR Routine 03/08/2024 1:42 PM CDT Replacement Aortic Valve Tissue documented in this encounter Results * (TTE) 2D ECHO DOPPLER COLOR (03/08/2024 1:42 PM CDT) Ejection Fraction 71 MC CV EIMS Proximal Ascending Aorta 37 MC CV EIMS LV End-Diastolic Diameter 37 MC CV EIMS LV End-Systolic Diameter 23 MC CV EIMS LV End-Diastolic Volume 61 MC CV EIMS LV End-Systolic Volume 18 MC CV EIMS MV E Velocity 1.1 MC CV EIMS MV A Velocity 0.9 MC CV EIMS MV E/A 1.22 MC CV EIMS MV e' Velocity Medial 0.06 MC CV EIMS MV e' Velocity Lateral 0.07 MC CV EIMS MV E/e' Medial 18.3 MC CV EIMS MV E/e' Lateral 15.7 MC CV EIMS Left ventricular stroke volume index 51 MC CV EIMS Cardiac Output 5.98 MC CV EIMS Cardiac Index 3.29 MC CV EIMS Tricuspid Annular S? 0.14 MC CV EIMS TR Vmax 2.21 MC CV EIMS RA Pressure 5 MC CV EIMS RV Systolic Pressure 25 MC CV EIMS AV mean gradient 25 MC CV EIMS Aortic valve area 1.28 MC CV EIMS Aortic Valve Area Index 0.7 MC CV EIMS Aortic Valve Dimensionless Index 0.41 MC CV EIMS Aortic Valve Systolic Peak Velocity 3 MC CV EIMS Anatomical Region Laterality Modality Echocardiography 03/08/2024 12:4 4 PM CDT Impressions 03/08/2024 1:51 PM CDT Last full echocardiogram performed 05/24/2023. LEFT VENTRICLE:Normal left ventricular chamber size. Abnormal left ventricular geometry with ??concentric remodeling (increased wall thickness to cavity ratio). Calculated 2-D biplane volumetric left ventricular ejection fraction of 71%. No regional wall motion abnormalities. Mildly elevated left ventricular filling pressure ??based on lateral E/E prime velocity ratio. RIGHT VENTRICLE:Normal right ventricular chamber size. Normal right ventricular systolic function. Estimated right ventricular systolic pressure 25 mmHg (right atrial pressure of 5 mmHg). ATRIA:Normal left atrial size. Normal right atrial size. 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 Aortic valve prosthesis systolic mean Doppler gradient 25 mmHg. Aortic valve prosthetic orifice area by Doppler: 1.28 cm2 No aortic valve prosthetic regurgitation. No aortic valve periprosthetic regurgitation. Normal mitral valve. Trivial mitral valve regurgitation. Normal pulmonary valve. Normal pulmonary valve systolic velocities. Trivial pulmonary valve regurgitation. Normal tricuspid valve. Trivial tricuspid valve regurgitation. OTHER ECHO FINDINGS:Normal inferior vena cava size with normal inspiratory collapse (>50%). No intracardiac mass or thrombus, but the left atrial appendage cannot be visualized adequately with transthoracic echo to exclude thrombus in this location. Tiny, insignificant anterior pericardial effusion. For the complete report, see the Order-Level Documents. Narrative 03/08/2024 1:51 PM CDT For the complete report, see the Order-Level Documents. Hemodynamics Heart Rate: 65 BPM Blood Pressure: 134 / 74 mmHg ECG: Sinus rhythm Final Impressions 1. 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 2. Aortic valve prosthesis systolic mean Doppler gradient 25 mmHg. 3. Aortic valve prosthetic orifice area by Doppler: 1.28 cm2 ??with mild restriction to leaflet opening noted. 4. No aortic valve prosthetic regurgitation ??with no periprosthetic regurgitation noted. 5. Calculated 2-D biplane volumetric left ventricular ejection fraction of 71%. 6. Normal right ventricular chamber size ??with normal right ventricular function and systolic pressure. 7. Estimated right ventricular systolic pressure 25 mmHg (right atrial pressure of 5 mmHg). 8. Tiny, insignificant anterior pericardial effusion. 9. Compared to the report of 05/24/2023 the following changes have occurred: ??mild increase in the gradient across the aortic valve. Procedure Note Karla Brewer M.D. - 03/08/2024 For the complete report, see the Order-Level Documents. Hemodynamics Heart Rate: 65 BPM Blood Pressure: 134 / 74 mmHg ECG: Sinus rhythm Final Impressions 1. Status post 23mm Mccord Dayan 3 Ultra pericardial aortic valveprosthesis (07-MAR-2023). 2. Aortic valve prosthesis systolic mean Doppler gradient 25 mmHg. 3. Aortic valve prosthetic orifice area by Doppler: 1.28 cm2 with mildrestriction to leaflet opening noted. 4. No aortic valve prosthetic regurgitation with no periprostheticregurgitation noted. 5. Calculated 2-D biplane volumetric left ventricular ejection fraction of71%. 6. Normal right ventricular chamber size with normal right ventricularfunction and systolic pressure. 7. Estimated right ventricular systolic pressure 25 mmHg (right atrialpressure of 5 mmHg). 8. Tiny, insignificant anterior pericardial effusion. 9. Compared to the report of 05/24/2023 the following changes haveoccurred: mild increase in the gradient across the aortic valve. Findings Last full echocardiogram performed 05/24/2023. LEFT VENTRICLE:Normal left ventricular chamber size. Abnormal leftventricular geometry with concentric remodeling (increased wall thicknessto cavity ratio). Calculated 2-D biplane volumetric left ventricularejection fraction of 71%. No regional wall motion abnormalities. Mildlyelevated left ventricular filling pressure based on lateral E/E primevelocity ratio. RIGHT VENTRICLE:Normal right ventricular chamber size. Normal rightventricular systolic function. Estimated right ventricular systolicpressure 25 mmHg (right atrial pressure of 5 mmHg). ATRIA:Normal left atrial size. Normal right atrial size. CARDIAC VALVES:Status post 23mm Mccord Dayan 3 Ultra pericardial aorticvalve prosthesis (07-MAR-2023). Aortic valve prosthesis systolic meanDoppler gradient 25 mmHg. Aortic valve prosthetic orifice area by Doppler:1.28 cm2 No aortic valve prosthetic regurgitation. No aortic valveperiprosthetic regurgitation. Normal mitral valve. Trivial mitral valveregurgitation. Normal pulmonary valve. Normal pulmonary valve systolicvelocities. Trivial pulmonary valve regurgitation. Normal tricuspid valve.Trivial tricuspid valve regurgitation. OTHER ECHO FINDINGS:Normal inferior vena cava size with normal inspiratorycollapse (>50%). No intracardiac mass or thrombus, but the left atrialappendage cannot be visualized adequately with transthoracic echo toexclude thrombus in this location. Tiny, insignificant anteriorpericardial effusion. For the complete report, see the Order-Level Documents. Shoshana Araujo APRN, C.N.P., M.S.N. CV ECHO PROCEDURES documented in this encounter Visit Diagnoses Diagnosis Replacement Aortic Valve Tissue documented in this encounter
--- OUTSIDE RECORDS SUMMARY | 2024-03-20 13:50 | XMS_ITS | Encounter Summary ---
Author Organization [facility] Address [address] [place] [address] Care Team Providers Care Survey Researcher Name Role Phone Unavailable Primary Care Provider Unavailabl e Encounter Details Date Type Department Care Team (Latest Contact Info) Description 03/08/2024 9:53 AM CDT - 03/08/2024 12:10 PM CDT Hospital Encounter Department of Laboratory Medicine and Pathology, [facility], in [place], [place] [address] [place] [phone] Shoshana Araujo, EDA, C.N.P., M.S.N. [address] [place] [phone] Replacement Aortic Valve Tissue Discharge Disposition: Home or Self Care Social History Tobacco Use Types Packs/Day Years Used Date Smoking Tobacco: Former Cigarettes Smokeless Tobacco: Never Comments:Smoked socially for about 2 years while in teens Alcohol Use Standard Drinks/Week Comments Yes 0 (1 standard drink = 0.6 oz pur e alcohol) occ. social drink [facility] Utilities Answer Date Recorded In the past 12 months has th e electric, gas, oil, or water company threatened to shut off services in your [...] and Family Twice a week 05/16/2019 Attends [employer] More than 4 times per year [...] and heating? Not hard at all 02/25/2023 [facility] - Occupational Stress [...] your living situation today? I have a [facility] place to live 03/04/2024 Education Answer Date [...] powder Take 17 g by mouth daily. rosuvastatin (CRESTOR) 5 mg tablet Take 0.5 tablets (2.5 mg total) by mouth daily. 15 tablet 11 05/21/2019 traZODone (DESYREL) 50 mg tablet Take 50 mg by mouth at bedtime as needed. triamcinolone (KENALOG) 0.1 % cream Apply 1 application topically 2 (two) times a week. 12/18/2020 documented as of this encounter Plan of Treatment Upcoming Encounters Date Type Department Care Team (Latest Contact Info) Description 05/30/2024 2:55 PM CDT Appointment Department of Cardiovascular Diseases in [place], [place] [address] [place] [address] Derrick Malloy Jr., M.D. [address] [place] [address] Discharge Disposition: Home or Self Care 05/31/2024 2:00 PM CDT Office Visit Department of Cardiovascular Medicine in [place], [place] [address] [place] [address] Derrick Malloy Jr., M.D. [address] [place] [address] documented as of this encounter Procedures Procedure Name Priority Date/Time Associated Diagnosis Comments NT-PRO B-TYPE NATRIURETIC PEPTIDE (BNP), S Routine 03/08/2024 10:30 AM CDT Replacement Aortic Valve Tissue PROTHROMBIN TIME (PT), P Routine 03/08/2024 10:30 AM CDT Replacement Aortic Valve Tissue CBC WITH DIFFERENTIAL, B Routine 03/08/2024 10:30 AM CDT Replacement Aortic Valve Tissue SODIUM, S/P Routine 03/08/2024 10:30 AM CDT Replacement Aortic Valve Tissue POTASSIUM, S/P Routine 03/08/2024 10:30 AM CDT Replacement Aortic Valve Tissue GLUCOSE, FASTING, S/P Routine 03/08/2024 10:30 AM CDT Replacement Aortic Valve Tissue CREATININE WITH EGFR, S/P Routine 03/08/2024 10:30 AM CDT Replacement Aortic Valve Tissue ALBUMIN, S/P Routine 03/08/2024 10:30 AM CDT Replacement Aortic Valve Tissue documented in this encounter Results * NT-Pro B-Type Natriuretic Peptide (BNP) (03/08/2024 10:30 AM CDT) NT-Pro BNP 267 <=540 pg/mL 03/08/2024 12:04 PM CDT DTL Comment: NT-proBNP values less than 300 pg/mL have a 99% negative predictive value for excluding acute congestive heart failure. A cutoff of 1200 pg/mL for patients with an eGFR<60 yields a diagnostic sensitivity and specificity of 89% and 72% for acute congestive heart failure. A diagnostic NT-proBNP cutoff of 1800 pg/mL has been suggested in adults over 75 years of age in the absence of renal failure. Blood (Blood, Venous) 03/08/2024 10:30 AM CDT 03/08/2024 11:09 AM CDT Karine Davidson APRNN.Shelly., M.S.N. LAB BLOOD ADD-ON [address] [address], [facility] 200 [place] [address] * CBC with Differential, Blood (03/08/2024 10:30 AM CDT) Hemoglobin 13.0 11.6 - 15.0 g/dL 03/08/2024 11:26 AM CDT DTL Hematocrit 40.1 35.5 - 44.9 % 03/08/2024 11:26 AM CDT DTL Erythrocytes 4.45 3.92 - 5.13 x10(12)/L 03/08/2024 11:26 AM CDT DTL MCV 90.1 78.2 - 97.9 fL 03/08/2024 11:26 AM CDT DTL RBC Distrib Width 12.6 12.2 - 16.1 % 03/08/2024 11:26 AM CDT DTL Platelet Count 175 157 - 371 x10(9)/L 03/08/2024 11:26 AM CDT DTL Leukocytes 5.0 3.4 - 9.6 x10(9)/L 03/08/2024 11:26 AM CDT DTL Neutrophils 2.76 1.56 - 6.45 x10(9)/L 03/08/2024 11:26 AM CDT DHPM Lymphocytes 1.67 0.95 - 3.07 x10(9)/L 03/08/2024 11:26 AM CDT DTL Monocytes 0.45 0.26 - 0.81 x10(9)/L 03/08/2024 11:26 AM CDT DTL Eosinophils 0.09 0.03 - 0.48 x10(9)/L 03/08/2024 11:26 AM CDT DTL Basophils 0.03 0.01 - 0.08 x10(9)/L 03/08/2024 11:26 AM CDT DTL Blood (Blood, Venous) 03/08/2024 10:30 AM CDT 03/08/2024 10:55 AM CDT Dylon Davidson APRN.N.P., M.S.N. LAB BLOOD ADD-ON [facility] [address] [place] [address], [facility] DTL [facility] [address] [place] [address] [facility] [address] [place] [address] * Prothrombin Time (PT) (03/08/2024 10:30 AM CDT) [facility] Prothrombin Time, P 10.9 9.4 - 12.5 sec 03/08/2024 11:29 AM CDT DTL INR 1.0 0.9 - 1.1 03/08/2024 11:29 AM CDT DTL Comment: ----ADDITIONAL INFORMATION---- Standard intensity warfarin therapeutic range: 2.0 to 3.0 ?? High intensity warfarin therapeutic range: 2.5 to 3.5 Blood (Blood, Venous) 03/08/2024 10:30 AM CDT 03/08/2024 10:55 AM CDT Shoshana Araujo APRN, C.N.P., M.S.N. LAB BLOOD ADD-ON [facility] [address] 200 [place] [address] * Sodium (03/08/2024 10:30 AM CDT) Sodium, S 141 135 - 145 mmol/L 03/08/2024 12:04 PM CDT DTL Blood (Blood, Venous) 03/08/2024 10:30 AM CDT 03/08/2024 11:09 AM CDT Shoshana Araujo APRN, C.N.P., M.S.N. LAB BLOOD ADD-ON Performing Organization Address City/[facility]/ZIP Co de Phone Number [facility] [address] [place] [address] * Potassium (03/08/2024 10:30 AM CDT) Potassium, S 4.6 3.6 - 5.2 mmol/L 03/08/2024 12:04 PM CDT DTL Blood (Blood, Venous) 03/08/2024 10:30 AM CDT 03/08/2024 11:09 AM CDT Shoshana Araujo APRN, C.N.P., M.S.N. LAB BLOOD ADD-ON [facility] [address] [facility] 200 [place] [address] * Glucose, Fasting (03/08/2024 10:30 AM CDT) Glucose, P 87 70 - 100 mg/dL 03/08/2024 11:27 AM CDT DTL Last Intake 17 hr 03/08/2024 11:09 AM CDT DTL Blood (Blood, Venous) 03/08/2024 10:30 AM CDT 03/08/2024 11:09 AM CDT Shoshana Araujo APRN, C.N.P., M.S.N. LAB BLOOD NON ADD-ON [facility] 200 [place] [address], [facility] 200 [place] [address] * Creatinine with Estimated GFR (03/08/2024 10:30 AM CDT) Pathologist [facility] Creatinine 0.78 0.59 - 1.04 mg/dL 03/08/2024 12:04 PM CDT DTL Estimated GFR (eGFR) 77 >=60 mL/min/BSA 03/08/2024 12:04 PM CDT DTL Comment: Estimated GFR calculated using the 2020 CKD_EPI creatinine equation. Blood (Blood, Venous) 03/08/2024 10:30 AM CDT 03/08/2024 11:09 AM CDT Shoshana Araujo APRN, C.N.P., M.S.N. LAB BLOOD ADD-ON [facility] 200 [place] [address], [facility] 200 [place] [address] * Albumin (03/08/2024 10:30 AM CDT) Albumin, S 4.2 3.5 - 5.0 g/dL 03/08/2024 12:04 PM CDT DTL Blood (Blood, Venous) 03/08/2024 10:30 AM CDT 03/08/2024 11:09 AM CDT Shoshana Araujo APRN, C.N.P., M.S.N. LAB BLOOD ADD-ON [facility] [address] [place] [address], [facility] [address] [place] [address] documented in this encounter Visit Diagnoses Diagnosis Replacement Aortic Valve Tissue documented in this encounter
--- OUTSIDE RECORDS SUMMARY | 2024-03-20 13:50 | XMS_ITS | Encounter Summary ---
Author Organization [facility] Address [address] [place] [id number] Care Team Providers Care Hydroelectric Operator Name Role Phone Unavailable Primary Care Provider Unavailabl e Encounter Details Date Type Department Care Team (Late st Contact Info) Description 03/12/2024 Documentation Department of Cardiovascular Medicine in [place], [place] [address] [place] [address] Derrick Malloy Jr., M.D. [address] [place] [phone] Social History Tobacco Use Types Packs/Day Years Used Date Smoking Tobacco: Former Cigarettes Smokeless Tobacco: Never Comments:Smoked socially for about 2 years while in teens Alcohol Use Standard Drinks/Week Comments Yes 0 (1 standard drink = 0.6 oz pur e alcohol) occ. social drink [facility] Utilities Answer Date Recorded In the past 12 months has e electric, gas, oil, or water company [...] and Family Twice a week 05/16/2019 Attends [employer] More than 4 times per year [...] and heating? Not hard at all 02/25/2023 [facility] - Occupational [...] your living situation today? I have a [facility] place to live 03/04/2024 Education Answer Date [...] PM CDT documented as of this encounter Progress Notes * Derrick Malloy Jr., M.D. - 03/12/2024 8:39 AM CDT I was able to talk to her home care physician, Dr. Kendrick, at [phone], who will anticoagulate the patient for 3-4 months in case there is a thrombus on the prosthetic valve. I will be happy to see the patient back as an extra with a prescheduled echocardiogram at that time to check to see if there is any decreasing gradient of the TAVR valve. documented in this encounter Plan of Treatment Upcoming Encounters Date Type Department Care Team (Latest Contact Info) Description 05/30/2024 2:55 PM CDT Appointment Department of Cardiovascular Diseases in [place], [place] [address] [place] [address] Derrick Malloy Jr., M.D. [address] [place] [address] Discharge Disposition: Home or Self Care 05/31/2024 2:00 PM CDT Office Visit Department of Cardiovascular Medicine in [place], [place] [address] [place] [address] Derrick Malloy Jr., M.D. [address] [place] [phone] documented as of this encounter Visit Diagnoses Not on filedocumented in this encounter
--- OUTSIDE RECORDS SUMMARY | 2024-03-20 13:50 | XMS_ITS | Clinical Summary ---
Author Organization [facility] Address [address] [place] [address] Care Team Providers Care Sewer Head Name Role Phone Unavailable Primary Care Provider Unavailabl e Source Comments Patient records contain information from all sites at [facility]. For routine questions regarding patient records, call [phone] during business hours, M-F 8:00 AM - 5:00 PM Central Time. Record requests for emergency care only can be directed to [phone] at any time.[facility] Allergies Active Allergy Reactions Criticality Noted Date [...] by mouth at bedtime as needed. Active clobetasoL (Temovate) 0.05 % cream Apply 1 Application topically 2 (two) times a day. 01/23/2024 Active Active Problems Problem Noted Date Diagnosed Date Prosthesis Aortic Valve 03/08/2024 Chronic Diastolic (Congestive) Heart Failure Overweight Body Mass Index 25-29.9 Adult 023 Cancer Breast Personal History 03/07/2023 Stenosis Aortic Valve Acquired 04/29/2022 Hyperlipidemia On Treatment 04/29/2022 Atherosclerotic Heart Diseas e Of [place] Coronary Artery Without Angina Pectoris 04/29/2022 Hypertension Essential Primary 04/29/2022 Assessment & Plan (04/29/2022 1:41 PM CDT): Mrs. Diaz is a very pleasant 77-year-old female who was seen in the [facility] for a 1 year follow up of aortic stenosis. She has been doing well over the past year from a heart standpoint. She denies any new cardiopulmonary symptoms today. She continues to be very physically active with walking 2 days a week, playing Tactilize ball 1 day a week, and golfing [...] to be as physically active as tolerated. Resolved Problems Problem Noted Date Diagnosed Date Resolved Date Replacement Aortic Valve Tissue 05/25/2023 03/08/2024 Encounters Date Type Department Care Team Description 03/13/2024 Clinical Communication Department of Cardiovascular Medicine in [place], [place] [address] [place] [address] Derrick Malloy Jr., M.D. Appt Request 03/12/2024 Clinical Communication Department of Cardiovascular Medicine in [place], [place] [address] [place] [address] Derrick Malloy Jr., M.D. 03/12/2024 Documentation Department of Cardiovascular Medicine in [place], [place] [address] [place] [phone] Derrick Malloy Jr., M.D. 03/09/2024 Clinical Communication Department of Cardiovascular Medicine in [place], [place] [address] [place] [phone] Derrick Malloy Jr., M.D. Return Call Request (Dr. Kendrick from [facility] is out of the office until Tuesday.) 03/08/2024 4:00 PM CDT Office Visit Department of Cardiovascular Medicine in [place], [place] [address] [place] [address] Derrick Malloy Jr., M.D. Stenosis Aortic Valve Acquired (Primary Dx); Prosthesis Aortic Valve; Hypertension Essential Primary; Hyperlipidemia On Treatment; Cancer Breast Personal History 03/08/2024 12:11 PM CDT - 03/08/2024 11:59 PM CDT Hospital Encounter Department of Cardiovascular Diseases in [place], [place] [address] [place] [phone] Shoshana Araujo APRN, C.N.P., M.S.N. Replacement Aortic Valve Tissue Discharge Disposition: Home or Self Care 03/08/2024 9:53 AM CDT - 03/08/2024 12:10 PM CDT Hospital Encounter Department of Laboratory Medicine and Pathology, [facility] in [place], [place] [address] [place] [phone] Shoshana Araujo APRN, C.N.P., M.S.N. Replacement Aortic Valve Tissue Discharge Disposition: Home or Self Care 03/08/2024 8:39 AM CDT - 03/08/2024 9:52 AM CDT Hospital Encounter Department of Radiology, [facility] in [place], [place] [address] [place] [phone] Shoshana Araujo APRN, C.N.P., M.S.N. Replacement Aortic Valve Tissue Discharge Disposition: Home or Self Care 03/06/2024 9:30 AM CDT Clinical Communication Virtual Review in [place], [place] [address] [place] [address] Previsit Preparation from Last 3 Months Immunizations Name Administration Dates Next Due Influenza Split 05/15/2008 Social History Tobacco Use Types Packs/Day Years Used Date Smoking Tobacco: Former Cigarettes Smokeless Tobacco: Never Tobacco Cessation:Counseling Given: Not Answered Comments:Smoked socially for about 2 years while in teens Alcohol Use Standard Drinks/Week Comments Yes 0 (1 standard drink = 0.6 oz pur e alcohol) occ. social drink [facility] Utilities Answer Date Recorded In the past 12 months has e [employer], gas, oil, or water [employer] threatened to shut off services in your [...] and Family Twice a week 05/16/2019 Attends [employer] Services More than 4 times per year [...] and heating? Not hard at all 02/25/2023 [facility] - [...] your living situation today? I have a [facility] place to live 03/04/2024 Education Answer Date [...] CDT Appointment Department of Cardiovascular Diseases in [place], [place] [address] [place] [phone] Derrick Malloy Jr., M.D. [address] [place] [phone] Discharge Disposition: Home or Self Care 05/31/2024 2:00 PM CDT Office Visit Department of Cardiovascular Medicine in [place], [place] [address] [place] [address] Derrick Malloy Jr., M.D. [address] [place] [address] Health Maintenance Due Date Last Done Comments Hepatitis C Screening 1945 Depression Screening (Annual PHQ-2) 08/15/2023 COVID-19 Vaccine (2022-2 4 season) 2023 06/09/2023, 06/09/2022, 12/24/2021, Additional history exists Influenza Vaccine (#1) 2024 , 06/09/2022, 06/01/2021, Additional history exists Office Visit for Blood Press ure Check / Re-check 05/25/2024 05/25/2023 Creatinine Level (Kidney Fun ction Test) 03/08/2025 03/08/2024, 05/24/2023, 02/28/2023, Additional history exists Potassium Level 03/08/2025 03/08/2024, 05/15, 02/28/2023, Additional history exists Sodium Level 03/08/2025 03/08/2024, 05/15, 02/28/2023, Additional history exists DTaP,Tdap,and Td Vaccines (3 - Td or Tdap) 06/22/2031 06/22/2021, 03/09/2011, 02/16/2005 Pneumococcal vaccine (65+ years) Completed 02/25/20 15, 03/03/2010 Zoster Vaccines Completed 06/01/2021, 03/18/2021 Fall Risk Screen (Annual) Completed 03/08/2024 Medical Devices Implanted Type Area Hat Braider Device Identifier Shelf Expiration Date Model / Serial / Lot Breast Implant Breast Implant Bilateral : Breast Vlv Dayan S3 Ultra 23 - [id number] - [id number] Implanted:Qty : 1 on 03/07/2023 by Carrington Castillo M.D., Ph.D. at [facility] Cardiac Valve Prosthesis N/A: Heart [employer] 06/16/2025 [id number] / [id number] / Description:Aortic Valve Ocular Lens Ocular Lens Bilateral : Eye Procedures Procedure Name Priority Date/Time Associated Diagnosis Comments (TTE) 2D ECHO DOPPLER COLOR Routine 03/08/2024 1:42 PM CDT Replacement Aortic Valve Tissue NT-PRO B-TYPE NATRIURETIC PEPTIDE (BNP), S Routine [...] 10:30 AM CDT Replacement Aortic Valve Tissue ECG Routine 03/08/2024 9:07 AM CDT Replacement Aortic Valve Tissue CT CHEST WITHOUT IV CONTRAST RAD - Routine (most inpatients and all outpatients) 03/08/2024 8:54 AM CDT Replacement Aortic Valve Tissue from Last 3 Months Results * (TTE) 2D ECHO DOPPLER COLOR [...] Araujo APRN, C.N.P., M.S.N. CV ECHO PROCEDURES * NT-Pro B-Type Natriuretic Peptide (BNP) (03/08/2024 [...] M.S.N. LAB BLOOD ADD-ON Performing Organization Address [facility] Co de Phone Number [facility] [address] [facility] [address] [place] [address] * Prothrombin Time (PT) (03/08/2024 10:30 AM CDT) Pathologist [facility] Prothrombin Time, P 10.9 9.4 - 12.5 [...] M.S.N. LAB BLOOD ADD-ON Performing Organization Address City/[facility] Co de Phone Number [facility] [address] [place] [address], [facility] [address] [place] [address] * CBC with Differential, Blood (03/08/2024 10:30 [...] CDT 03/08/2024 10:55 AM CDT Shoshana Araujo APRN C.N.P., M.S.N. LAB BLOOD ADD-ON [facility] [address] [place] [address], [facility] DTL [facility] [address] [place] [address] [facility] [address] [place] [address] * Sodium (03/08/2024 10:30 AM CDT) [facility] Signature Sodium, S 141 135 - 145 mmol/L 03/08/2024 12:04 PM CDT DTL Blood (Blood, Venous) 03/08/2024 10:30 AM CDT 03/08/2024 11:09 AM CDT Shoshana Araujo APRN, C.N.P., M.S.N. LAB BLOOD ADD-ON [facility] [address] [place] [address] * Potassium (03/08/2024 10:30 AM CDT) Potassium, S 4.6 3.6 - 5.2 mmol/L 03/08/2024 12:04 PM CDT DT Blood (Blood, Venous) 03/08/2024 10:30 AM CDT 03/08/2024 11:09 AM CDT Shoshana Araujo APRN, C.N.P., M.S.N. LAB BLOOD ADD-ON Performing Organization Address City/[facility] Co de Phone Number [facility] [address] [place] [address] * Glucose, Fasting (03/08/2024 10:30 AM CDT) Glucose, P 87 70 - 100 mg/dL 03/08/2024 11:27 AM CDT DTL Last Intake 17 hr 03/08/2024 11:09 AM CDT DT Blood (Blood, Venous) 03/08/2024 10:30 AM CDT 03/08/2024 11:09 AM CDT Shoshana Araujo APRN, C.N.P., M.S.N. LAB BLOOD NON ADD-ON [facility] [address] [place] [address] [place] [address] * Creatinine with Estimated GFR (03/08/2024 10:30 AM CDT) Pathologist [facility] Creatinine 0.78 0.59 - 1.04 mg/dL 03/08/2024 12:04 PM CDT DT Estimated GFR (eGFR) 77 >=60 mL/min/BSA 03/08/2024 12:04 PM CDT DT Comment: Estimated GFR calculated using the 2020 CKD_EPI creatinine equation. Blood (Blood, Venous) 03/08/2024 10:30 AM CDT 03/08/2024 11:09 AM CDT Shoshana Araujo APRN, C.N.P., M.S.N. LAB BLOOD ADD-ON [facility] [address] [place], [place] [address] [address] [place] [address] * Albumin (03/08/2024 10:30 AM CDT) Pathologist [facility] Albumin, S 4.2 3.5 - 5.0 g/dL 03/08/2024 12:04 PM CDT DT Blood (Blood, Venous) 03/08/2024 10:30 AM CDT 03/08/2024 11:09 AM CDT Shoshana Araujo APRN, C.N.P., M.S.N. LAB BLOOD ADD-ON [facility] [address] [place], [place] [id number] [place] [phone] * ECG 12 Lead (03/08/2024 9:07 AM CDT) Pathologist [facility] Ventricular Rate ECG/Min 62 BPM MUSE MA Interval 192 ms MUSE QRSD Interval 78 ms MUSE QT Interval 418 ms MUSE QTC Interval 424 ms MUSE P [place] 24 degrees MUSE R [place] -5 degrees MUSE T Wave [place] 50 degrees MUSE 03/08/2024 9:07 AM CDT 03/08/2024 9:20 AM CDT Impressions MUSE - 03/08/2024 9:20 AM CDT Normal sinus rhythm Normal ECG When compared with ECG of 24-May-2023 13:47, No significant change was found Reviewed by ISHA Denis Narrative Procedure Note Zurdo Crouch M.D., Ph.D. - 03/08/2024 IMPRESSION: Normal sinus rhythm Normal ECG When compared with ECG of 24-May-2023 13:47, No significant change was found Reviewed by ISHA Denis Shoshana Araujo APRN, C.N.P., M.S.N. ECG ORDERABLES MUSE NA * CT Chest without IV Contrast (03/08/2024 8:54 AM CDT) Anatomical Region Laterality Modality Chest, Thoracic RST LOS, Tho racic ARZ LOS, Thoracic FLA LOS N/A Computed Tomography, Compute d Tomography Impressions 03/08/2024 9:[address] chest. No new or enlarging pulmonary nodules. Narrative 03/08/2024 9:56 AM CDT EXAM: CT CHEST WITHOUT IV CONTRAST COMPARISON: CT chest without IV contrast 05/24/2023. FINDINGS: No new or enlarging pulmonary nodules. Similar small noncalcified solid pulmonary nodules, for example: -3 mm right upper lobe nodule in the apex (3/95) -5 mm right upper lobe subpleural nodule (3/106) -4 mm right middle lobe subpleural nodule, anteriorly (3/346) Minimal linear scarring/atelectasis in the bilateral caudal lungs. Tiny thin-walled pulmonary cyst in the left upper lobe is unchanged. Similar upper lobe subpleural simple lipoma, measuring up to 1.9 cm (3/165). No pleural effusion. Trace pericardial effusion. TAVR. Mild calcified atherosclerotic plaque burden of the thoracic aorta and coronary arteries. Similar fusiform dilatation of the ascending thoracic aorta, 40 mm ([id number] double oblique and series 1000). Postoperative changes of the breasts with bilateral mastectomies and breast augmentation. Scattered subcentimeter left axillary lymph nodes, unchanged. No aggressive osseous lesions. Degenerative changes of the thoracic spine with multiple endplate irregularities and anterior wedging. Stable T4 sclerotic focus, likely a benign bone island. Cholecystectomy clips. Splenule. Procedure Note Larisa Javier M.D. - 03/08/2024 EXAM: CT CHEST WITHOUT IV CONTRAST COMPARISON: CT chest without IV contrast 05/24/2023. FINDINGS: No new or enlarging pulmonary nodules. Similar small noncalcified solid pulmonary nodules, for example: -3 mm right upper lobe nodule in the apex (3/95) -5 mm right upper lobe subpleural nodule (3/106) -4 mm right middle lobe subpleural nodule, anteriorly (3/346) Minimal linear scarring/atelectasis in the bilateral caudal lungs. Tiny thin-walled pulmonary cyst in the left upper lobe is unchanged. Similar upper lobe subpleural simple lipoma, measuring up to 1.9 cm(3/165). No pleural effusion. Trace pericardial effusion. TAVR. Mild calcified atherosclerotic plaque burden of the thoracic aorta andcoronary arteries. Similar fusiform dilatation of the ascending thoracic aorta, 40 mm([id number] double oblique and series 1000). Postoperative changes of the breasts with bilateral mastectomies andbreast augmentation. Scattered subcentimeter left axillary lymph nodes, unchanged. No aggressive osseous lesions. Degenerative changes of the thoracic spine with multiple endplateirregularities and anterior wedging. Stable T4 sclerotic focus, likely abenign bone island. Cholecystectomy clips. Splenule. IMPRESSION: Stable CT chest. No new or enlarging pulmonary nodules. Karine Davidson APRNN.Shelly., M.S.N. IMG CT PROCEDURES from Last 3 Months Advance Directives For more information, please contact: [phone] * Full Code (Latest Code Status on File) Date Activated Date Inactivated Comments 03/07/2023 11:55 AM 03/08/2023 1:14 PM Question Answer Comments Full Code: Discussed
--- OUTSIDE RECORDS SUMMARY | 2024-03-20 13:50 | XMS_ITS | Referral Summary ---
Author Organization [facility] Address [address] [place] [phone] Care Team Providers Care Operational Risk Manager Name Role Phone Claudia Ren PA-C Primary [...] Recently Relevant to Health Maintenance Care Teams Operational Risk Manager Relationship Specialty Start Date End Date Claudia Ren PA-C [facility] [address] [place] [address] PCP - General Physician Uniformer 03/15/23
--- OUTSIDE RECORDS SUMMARY | 2024-03-20 13:50 | XMS_ITS | Clinical Summary ---
Author Organization [facility]img} Address [address] [place] [address] Care Team Providers Care Rad Tech Name Role Phone Needs Pcp, Assignment Primary Care Provider [phone] Source Comments You are receiving this document as you are listed as the primary care provider,follow-up provider, or the patient has been referred to you for consultation.This is in compliance with the Medicare and[facility] EHR Incentive Program,which states Providers who transition their patient to another setting of careor provider of care or refers their patient to another provider of care shouldprovide summary care record for each transition of care or referral. [facility] Allergies Active Allergy Reactions Criticality Noted Date [...] age to complete this topic Care Teams Rad Tech Relationship Specialty Start Date End Date Needs Pcp, [place] [address] PCP - General 06/05/21
--- OUTSIDE RECORDS SUMMARY | 2024-03-20 13:50 | XMS_ITS | Encounter Summary ---
Author Organization [facility] Address [address] [place] [address] Care Team Providers Care Librarian Assistant Name Role Phone Unavailable Primary Care Provider Unavailabl e Reason for Visit * Outpatient (Routine) - Closed Specialty Diagnoses / Procedures Referred By Nathan galloway Referred To Contact Cardiovascular Disease Shoshana Araujo APRN CNicholasNNicholasP., M.S.N. [address] [place] [address] [facility] Referral ID Status Reason Start Date Expiration Date Visits Re quested Visits Authorized [id number] Closed 05/25/2023 05/24/2026 1 1 Encounter Details Date Type Department Care Team (Latest Contact Info) Description 03/08/2024 4:00 PM CDT Office Visit Department of Cardiovascular Medicine in [place], [place] [address] [place] [phone] Derrick Malloy Jr., M.D. 200 [place] [phone] Stenosis Aortic Valve Acquired (Primary Dx); Prosthesis Aortic Valve; Hypertension Essential Primary; Hyperlipidemia On Treatment; Cancer Breast Personal History Social History Tobacco Use Types Packs/Day Years Used Date Smoking Tobacco: Former Cigarettes Smokeless Tobacco: Never Comments:Smoked socially for about 2 years while in teens Alcohol Use Standard Drinks/Week Comments Yes 0 (1 standard drink = 0.6 oz pur e alcohol) occ. social drink [facility] Utilities Answer Date Recorded In [...] and Family Twice a week 05/16/2019 Attends [employer] More than 4 times per year [...] and heating? Not hard at all 02/25/2023 [facility] of Occupat ional Health - Occupational Stress [...] your living situation today? [facility] 03/04/2024 Education Answer [...] PM CDT documented as of this encounter H&P Notes * Derrick Malloy Jr., M.D. - 03/08/2024 4:00 PM CDT REFERRAL SOURCE Shoshana Araujo, APR* CHIEF COMPLAINT / REASON FOR VISIT Recheck of TAVR valve procedure. HISTORY OF PRESENT ILLNESS Ms. Diaz is now 79 years of age. She had significant aortic stenosis and on March 07 of last yearreceived a Dayan three aortic TAVR valve. She reports that she is not any different now in terms of dyspnea when she climbs stairs. She has not had syncope, edema or angina. She describes what he calls dizziness, especially when she bends over and then straightens up again. She is a former very minimal smoker. She has treated hyperlipidemia. She denies diabetes. She has treated hypertension. Sheavoids extra salt. She has not had chest deceleration injuries. She has not had rheumatic fever. She has not been checked for any possible sleep apnea. She has not had vertigo. He tells me of a random fullness in the chest at unpredictable times. When she coughs this does not make much difference. She is not taking an CAROL inhibitor but is taking losartan. This would not likely cause the symptoms. Cardiac catheterization on 06/16/2011 was reported to show a 50% mid right and a 30% distal right set of coronary lesions. Newest CT study of 02/28/2023, from about a year ago, was a coronary CT study which did not describes significant coronary disease. I gave her a copy of the catheterization report from 2010. Laboratory data from today include hemoglobin 13.0, white count 5, 000, platelet count a 175, 000, INR 1.0, sodium 141, potassium 4.6, creatinine 0.78, glucose 87, NT proBNP 267 and no values for lipids or sensitive TSH. I gave her a copy of the test results. The CT study of the chest today is reported to show some small noncalcified nodules, a pulmonary cyst in the left upper lobe unchanged, a subpleural simple lipoma in the upper lobe, no pleural effusion, a trace pericardial effusion, the TAVR valve in good position, and mild plaque in the thoracic aorta and coronary arteries. There is a 40 mm fusiform dilatation of the ascending thoracic aorta. There are bilateral mastectomies. The lymph nodes are unchanged. There are no lesions in the bone thatsuggest cancer. There is arthritis of the spine. There are gallbladder clips. I reviewed the 12 lead ECG from today and gave her a copy. I interpreted to be entirely normal in all ways including rate of 62 beats per minute, FL interval of 192 milliseconds, axis, voltage, QRS duration of 70 milliseconds and QTC of 424 milliseconds. I reviewed the report of the transthoracic echocardiogram from today and gave her a copy. It notes the 23 mm Mccord Dayan three TAVR valve with a gradient of 25 mmHg and an opening of 1.28 sq cm. There is no regurgitation through or around the prosthesis. The ejection fraction is normal at 71%. When compared to the prior study of 06/24/2023, the gradient has increased. There is a tiny anterior pericardial effusion. The following portions of the patient's history were reviewed and updated as appropriate: allergies, current medications, family history, medical history, social history, surgical history, psychiatric history, substance abuse history, problem list, labs, diagnostics tests.. I also reviewed pertinent clinical notes in the electronic health record. REVIEW OF SYSTEMS Patient provided responses to questionnaire: All other systems reviewed and are negative. MEDICATIONS Current Medications: amoxicillin (AMOXIL) 500 mg capsule, Take 4 caps (2000 mg) 1 hour prior to invasive dental procedure. aspirin [address] tablet, Take 81 mg by mouth daily. CALCIUM CITRATE-VITAMIN D3 ORAL, Take 1 tablet by mouth daily. Citracal Petites clobetasoL (Temovate) 0.05 % cream, Apply 1 Application topically 2 (two) times a day. ezetimibe (ZETIA) 10 mg tablet, Take 10 mg by mouth daily. losartan-hydroCHLOROthiazide (HYZAAR) 50-12.5 mg per tablet, Take 1 tablet by mouth daily. metoprolol succinate (TOPROL-XL) 25 mg 24 hr tablet, 25 mg daily. polyethylene glycol (MIRALAX) 17 gram/dose oral powder, Take 17 g by mouth daily. rosuvastatin (CRESTOR) 5 mg tablet, Take 0.5 tablets (2.5 mg total) by mouth daily. (Patient takingdifferently: Take 5 mg by mouth 2 (two) times a week.) traZODone (DESYREL) 50 mg tablet, Take 50 mg by mouth at bedtime as needed. triamcinolone (KENALOG) 0.1 % cream, Apply 1 application topically 2 (two) times a week. VITALS Pulse 61 beats per minute, regular Blood pressure 134/74 mmHg Height 166.9 cm Weight 73.2 kg BMI 26 PHYSICAL EXAMINATION General: Appears healthy. Alert and articulate. Able to get up and down from examination table without assistance. Skin: No cyanosis, icterus, pallor, ecchymoses or petechiae. No stasis dermatitis or ulceration. Vessels: Carotid contour normal. No carotid or subclavian bruits. Jugular venous pressure not. No abnormal venous waves. Hepatojugular reflux negative on liver compression. Heart: Regular rhythm. Heart is not overly active. Mitral first sound normal. Aortic prosthetic closure sound normal. Pulmonic closure sound normal. No third or fourth sound. No mitral click. No rub,ectopy, dyskinesis, abnormal lift, vibration or rapid filling wave. There is a grade 2-3 over six systolic ejection murmur from the aortic prosthesis. I hear no diastolic murmur. Lungs: Clear to auscultation and percussion. No dyspnea. Abdomen: No liver tenderness or swelling. No abdominal aortic aneurysm. Extremities: Ankle edema absent. No phlebitis. Eyes: No xanthelasma, icterus or conjunctivitis. ENT: Hearing and balance are satisfactory. Musculoskeletal:Normal musculature, gait and coordination. No atrophy. Psychiatry: Cheerful and not depressed. ASSESSMENT / PLAN #1 History of aortic stenosis #2 23 mm Mccord Dayan three TAVR valve She reports not having improvement in her dyspnea when it was inserted. The gradient has increased.It is possible there is a thrombus on one of the leaflets. 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 What to do? By examination she probably has a normal TAVR valve but by ECHO the gradient has increased. It is possible there is a thrombus on this prosthesis although this has not apparently change her symptomatology. She was short of breath after the TAVR valve was inserted also. To be safe, I would suggest that she have oral anticoagulation with an INR in the range of 2-3 for least three months and then recheck with an echocardiogram. I will send a summary to her and also to her home physician in the [facility], Dr. Pam Kendrick. Derrick Malloy Jr., M.D. 03/08/2024 documented in this encounter Plan of Treatment Upcoming Encounters Date Type Department Care Team (Latest Contact Info) Description 05/30/2024 2:55 PM CDT Appointment Department of Cardiovascular Diseases in [place], [place] [address] [place] [address] Derrick Malloy Jr., M.D. [address] [place] [address] Discharge Disposition: Home or Self Care 05/31/2024 2:00 PM CDT Office Visit Department of Cardiovascular Medicine in [place], [place] [address] [place] [phone] Derrick Malloy Jr., M.D. [address] [place] [phone] documented as of this encounter Visit Diagnoses Diagnosis Stenosis Aortic Valve Acquired- Primary Prosthesis Aortic Valve Hypertension Essential Primary Hyperlipidemia On Treatment Cancer Breast Personal History documented in this encounter
--- OUTSIDE RECORDS SUMMARY | 2024-03-20 13:50 | XMS_ITS | Referral Summary ---
Author Organization [facility] Address [address] [place] [address] Care Team Providers Care Data Collector Name Role Phone Unavailable Primary Care Provider Unavailabl e Source Comments Patient records contain information from all sites at [facility]. For routine questions regarding patient records, call [phone] during business hours, M-F 8:00 AM - 5:00 PM Central Time. Record requests for emergency care only can be directed to [phone] at any time.[facility] Encounters Date Type Department Care Team Description 03/13/2024 Clinical Communication Department of Cardiovascular Medicine in [place], [place] [address] [place] [address] Derrick Malloy Jr., M.D. Appt Request 03/12/2024 Clinical Communication Department of Cardiovascular Medicine in [place], [place] [address] [place] [address] Derrick Malloy Jr., M.D. 03/12/2024 Documentation Department of Cardiovascular Medicine in [place], [place] [address] [place] [phone] Derrick Malloy Jr., M.D. 03/09/2024 Clinical Communication Department of Cardiovascular Medicine in [place], [place] [address] [place] [address] Derrick Malloy Jr., M.D. Return Call Request (Dr. Kendrick from [place] is out of the office until Tuesday.) 03/08/2024 9:53 AM CDT - 03/08/2024 12:10 PM CDT Hospital Encounter Department of Laboratory Medicine and Pathology, [facility] in [place], [place] [address] [place] [phone] Shoshana Araujo APRN, C.NGilmar, M.S.N. Replacement Aortic Valve Tissue Discharge Disposition: Home or Self Care 03/08/2024 12:11 PM CDT - 03/08/2024 11:59 PM CDT Hospital Encounter Department of Cardiovascular Diseases in [place], [place] [address] [place] [phone] Shoshana Araujo APRN, C.N.P., M.S.N. Replacement Aortic Valve Tissue Discharge Disposition: Home or Self Care 03/08/2024 8:39 AM CDT - 03/08/2024 9:52 AM CDT Hospital Encounter Department of Radiology, [facility] in [place], [place] [address] [place] [phone] Shoshana Araujo APRN, C.NRamon., M.S.N. Replacement Aortic Valve Tissue Discharge Disposition: Home or Self Care 03/08/2024 4:00 PM CDT Office Visit Department of Cardiovascular Medicine in [address] [phone] Derrick Malloy Jr., M.D. Stenosis Aortic Valve Acquired (Primary Dx); Prosthesis Aortic Valve; Hypertension Essential Primary; Hyperlipidemia On Treatment; Cancer Breast Personal History 03/06/2024 9:30 AM CDT Clinical Communication Virtual Review in [place], [place] 200 [place] [address] Previsit Preparation from Last 3 Months Allergies Active Allergy Reactions Criticality Noted Date [...] Treatment 04/29/2022 Atherosclerotic Heart Diseas e Of [place] Coronary Artery Without Angina Pectoris 04/29/2022 Hypertension Essential Primary 04/29/2022 Assessment & Plan (04/29/2022 1:41 PM CDT): Mrs. Diaz is a very pleasant 77-year-old female who was seen in the [facility] for a 1 year follow up of aortic stenosis. She has been doing well over the past year from a heart standpoint. She denies any new cardiopulmonary symptoms today. She continues to be very physically active with walking 2 days a week, playing [employer] ball 1 day a week, and golfing [...] Date Replacement Aortic Valve Tissue 05/25/2023 03/08/2024 Immunizations Name Administration Dates Next Due Influenza Split 05/15/2008 Social History Tobacco Use Types Packs/Day Years Used Date Smoking Tobacco: Former Cigarettes Smokeless Tobacco: Never Tobacco Cessation:Counseling Given: Not Answered Comments:Smoked socially for about 2 years while in teens Alcohol Use Standard Drinks/Week Comments Yes 0 (1 standard drink = 0.6 oz pur e alcohol) occ. social drink [facility] Utilities Answer Date Recorded In the past 12 months has e [employer], gas, oil, or water [employer] threatened to shut off services in your [...] and Family Twice a week 05/16/2019 Attends [employer] Services More than 4 times per year [...] and heating? Not hard at all 02/25/2023 [facility] of Occupat ional Health - Occupational Stress [...] your living situation today? I have a [facility] place to live 03/04/2024 Education Answer [...] CDT Appointment Department of Cardiovascular Diseases in [place], [place] [address] [place] [phone] Derrick Malloy Jr., M.D. 200 [place] [phone] Discharge Disposition: Home or Self Care 05/31/2024 2:00 PM CDT Office Visit Department of Cardiovascular Medicine in [place], [place] [address] [place] [address] Derrick Malloy Jr., M.D. [address] [place] [phone] Medical Devices Implanted Type Area Engraver Signature Device Identifier Shelf Expiration Date Model / Serial / Lot Breast Implant Breast Implant Bilateral : Breast Vlv Dayan S3 Ultra 23 - [id number] - [id number] Implanted:Qty : 1 on 03/07/2023 by Carrington Castillo M.D., Ph.D. at [facility] Cardiac Valve Prosthesis N/A: Heart [employer] 06/16/2025 [id number] / [id number] / Description:Aortic Valve Ocular Lens Ocular Lens [...] ECHO DOPPLER COLOR (03/08/2024 1:42 PM CDT) [facility] Ejection Fraction 71 MC CV EIMS Proximal [...] Araujo APRN, C.N.P., M.S.N. [place] [address], [facility] [place] [address] * Prothrombin Time (PT) (03/08/2024 10:30 AM CDT) Prothrombin Time, P 10.9 9.4 - 12.5 sec 03/08/2024 11:29 AM CDT DTL INR 1.0 0.9 - 1.1 03/08/2024 11:29 AM CDT DTL Comment: ----ADDITIONAL INFORMATION---- Standard intensity warfarin therapeutic range: 2.0 to 3.0 ?? High intensity warfarin therapeutic range: 2.5 to 3.5 Blood (Blood, Venous) 03/08/2024 10:30 AM CDT 03/08/2024 10:55 AM CDT Karine Davidson APRNN.P., M.S.N. LAB BLOOD ADD-ON [facility] [address] [place] [address], [facility] DTL [facility] [address] [place] [address] * CBC with Differential, Blood (03/08/2024 10:30 [...] Araujo APRN, C.N.P., M.S.N. LAB BLOOD ADD-ON [facility] 200 [place] [address], [facility] 200 [place] [address] [facility] 200 [place] [address] * Sodium (03/08/2024 10:30 AM CDT) Sodium, S 141 135 - 145 mmol/L 03/08/2024 12:04 PM CDT DTL Blood (Blood, Venous) 03/08/2024 10:30 AM CDT 03/08/2024 11:09 AM CDT Shoshana Araujo APRN, C.N.P., M.S.N. LAB BLOOD ADD-ON [facility] [address] [place] [address], [facility] 200 [place] [address] * Potassium (03/08/2024 10:30 AM CDT) Potassium, S 4.6 3.6 - 5.2 mmol/L 03/08/2024 12:04 PM CDT DTL Blood (Blood, Venous) 03/08/2024 10:30 AM CDT 03/08/2024 11:09 AM CDT Shoshana Araujo APRN, C.N.P., M.S.N. LAB BLOOD ADD-ON [facility] [address] [place] [address], [facility] 200 [place] [address] * Glucose, Fasting (03/08/2024 10:30 AM CDT) Glucose, P 87 70 - 100 mg/dL 03/08/2024 11:27 AM CDT DTL Last Intake 17 hr 03/08/2024 11:09 AM CDT DTL Blood (Blood, Venous) 03/08/2024 10:30 AM CDT 03/08/2024 11:09 AM CDT Shoshana Araujo APRN, C.N.P., M.S.N. LAB BLOOD NON ADD-ON Performing Organization Address City/[facility] Co de Phone Number [facility] 200 [place] [address], [facility] 200 [place] [address] * Creatinine with Estimated GFR (03/08/2024 10:30 AM CDT) Creatinine 0.78 0.59 - 1.04 mg/dL 03/08/2024 12:04 PM CDT DTL Estimated GFR (eGFR) 77 >=60 mL/min/BSA 03/08/2024 12:04 PM CDT DTL Comment: Estimated GFR calculated using the 2020 CKD_EPI creatinine equation. Blood (Blood, Venous) 03/08/2024 10:30 AM CDT 03/08/2024 11:09 AM CDT Shoshana Araujo APRN, C.N.P., M.S.N. LAB BLOOD ADD-ON [facility] [address] [place] [address], [facility] 200 [place] [address] * Albumin (03/08/2024 10:30 AM CDT) Albumin, S 4.2 3.5 - 5.0 g/dL 03/08/2024 12:04 PM CDT DTL Blood (Blood, Venous) 03/08/2024 10:30 AM CDT 03/08/2024 11:09 AM CDT Shoshana Araujo APRN, C.N.P., M.S.N. LAB BLOOD ADD-ON Performing Organization Address City/[facility]/ZIP Co de Phone Number [facility] [address] [place] [address], [place] DTL [facility] [address] [place] [address] * ECG 12 Lead (03/08/2024 9:07 AM CDT) Ventricular Rate ECG/Min 62 BPM MUSE WA Interval 192 ms MUSE QRSD Interval 78 ms MUSE QT Interval 418 ms MUSE QTC Interval 424 ms MUSE P [place] 24 degrees MUSE R [place] -5 degrees MUSE T Wave [place] 50 degrees MUSE 03/08/2024 9:07 AM CDT [...] Shoshana Araujo APRN, C.N.P., M.S.N. ECG ORDERABLES Performing Organization Address City/[facility]/ZIP Co de Phone Number MUSE NA * CT Chest without IV [...] of the ascending thoracic aorta, 40 mm ([id number]-[id number] double oblique and series 1000). Postoperative changes [...] dilatation of the ascending thoracic aorta, 40 mm(lewv-wi-oiou double oblique and series 1000). Postoperative changes of the breasts with bilateral mastectomies andbreast augmentation. Scattered subcentimeter left axillary lymph nodes, unchanged. No aggressive osseous lesions. Degenerative changes of the thoracic spine with multiple endplateirregularities and anterior wedging. Stable T4 sclerotic focus, likely abenign bone island. Cholecystectomy clips. Splenule. IMPRESSION: Stable CT chest. No new or enlarging pulmonary nodules. Shoshana Araujo APRN C.N.P., M.S.N. IMG CT PROCEDURES from Last 3 Months Advance Directives For more information, please contact: [phone] * Full Code (Latest Code Status on File) Date Activated Date Inactivated Comments 03/07/2023 11:55 AM 03/08/2023 1:14 PM Question Answer Comments Full Code: Discussed
--- OUTSIDE RECORDS SUMMARY | 2024-03-20 13:50 | XMS_ITS ---
Author Organization [facility] Address [address] [place] [address] Care Team Providers Care Car Lubricator Name Role Phone Unavailable Unavailable Unavailable Surgery Details Not on file Complications Check Surgery Details section. Procedure Estimated Blood Loss Check Surgery Details section. Procedure Findings Check Surgery Details section. Procedure Specimens Taken Check Surgery Details section.
--- OUTSIDE RECORDS SUMMARY | 2024-03-20 13:50 | XMS_ITS | Encounter Summary ---
Author Organization [facility] Address [address] [place] [address] Care Team Providers Care Domestic Cleaner Name Role Phone Unavailable Primary Care Provider Unavailabl e Reason for Referral * MRI/CAT/PET Scan (Routine) - Closed Specialty Diagnoses / Procedures Referred By Nathan galloway Referred To Contact Radiology Diagnoses Replacement Aortic Valve Tissue Procedures CT Chest without IV Contrast Shoshana Araujo APRN, C.NGilmar, M.S.N. [address] [place] [phone] [facility] Referral ID Status Reason Start Date Expiration Date Visits Re quested Visits Authorized [id number] Closed 05/25/2023 05/24/2024 1 1 Reason for Visit * MRI/CAT/PET Scan (Routine) - Closed Specialty Diagnoses / Procedures Referred By Nathan galloway Referred To Contact Radiology Diagnoses Replacement Aortic Valve Tissue Procedures CT Chest without IV Contrast Shoshana Araujo APRN, C.N.Margi, M.S.N. [address] [place] [phone] [facility] Referral ID Status Reason Start Date Expiration Date Visits Re quested Visits Authorized [id number] Closed 05/25/2023 05/24/2024 1 1 Encounter Details Date Type Department Care Team (Latest Contact Info) Description 03/08/2024 8:39 AM CDT - 03/08/2024 9:52 AM CDT Hospital Encounter Department of Radiology, [facility], in [place], [place] [address] [place] [address] Shoshana Araujo APRN, C.N.P., M.S.N. [address] [place] [address] Replacement Aortic Valve Tissue Discharge Disposition: Home or Self Care Social History Tobacco Use Types Packs/Day Years Used Date Smoking Tobacco: Former Cigarettes Smokeless Tobacco: Never Comments:Smoked socially for about 2 years while in teens Alcohol Use Standard Drinks/Week Comments Yes 0 (1 standard drink = 0.6 oz pur e alcohol) occ. social drink [facility] Utilities Answer Date Recorded In the past 12 months has [employer], gas, oil, or water [employer] threatened to shut off services in your [...] and heating? Not hard at all 02/25/2023 [facility]ational Stress Questionnaire Answer Date [...] CDT Appointment Department of Cardiovascular Diseases in [place], [place] [address] [place] [address] Derrick Malloy Jr., M.D. 200 [place] [address] Discharge Disposition: Home or Self Care 05/31/2024 2:00 PM CDT Office Visit Department of Cardiovascular Medicine in [place], [place] [address] [place] [address] Derrick Malloy Jr., M.D. [address] [place] [address] documented as of this encounter Procedures Procedure Name Priority Date/Time Associated Diagnosis Comments CT CHEST WITHOUT IV CONTRAST RAD - Routine (most inpatients and all outpatients) 03/08/2024 8:54 AM CDT Replacement Aortic Valve Tissue documented in this encounter Results * CT Chest without IV Contrast (03/08/2024 [...] of the ascending thoracic aorta, 40 mm (vbhs-mq-yqam double oblique and series 1000). Postoperative changes [...] dilatation of the ascending thoracic aorta, 40 mm(tvqw-jx-huwk double oblique and series 1000). Postoperative changes of the breasts with bilateral mastectomies andbreast augmentation. Scattered subcentimeter left axillary lymph nodes, unchanged. No aggressive osseous lesions. Degenerative changes of the thoracic spine with multiple endplateirregularities and anterior wedging. Stable T4 sclerotic focus, likely abenign bone island. Cholecystectomy clips. Splenule. IMPRESSION: Stable CT chest. No new or enlarging pulmonary nodules. Shoshana Araujo APRN, C.N.P., M.S.N. IMG CT PROCEDURES documented in this encounter Visit Diagnoses Diagnosis Replacement Aortic Valve Tissue documented in this encounter
--- OUTSIDE RECORDS SUMMARY | 2024-03-20 13:50 | XMS_ITS | Encounter Summary ---
Author Organization [facility] Address [address] [place] [address] Care Team Providers Care Application Analyst Name Role Phone Unavailable Primary Care Provider Unavailabl e Reason for Visit * Reason Onset Date Comments Appt Request 03/13/2024 Encounter Details Date Type Department Care Team (Latest Contact Info) Description 03/13/2024 Clinical Communication Department of Cardiovascular Medicine in [place], [place] [address] [place] [phone] Derrick Malloy Jr., M.D. [address] [place] [phone] Appt Request Social History Tobacco Use Types Packs/Day Years Used Date Smoking Tobacco: Former Cigarettes Smokeless Tobacco: Never Comments:Smoked socially for about 2 years while in teens Alcohol Use Standard Drinks/Week Comments Yes 0 (1 standard drink = 0.6 oz pur e alcohol) occ. social drink C Utilities Answer Date Recorded In the past [...] and Family Twice a week 05/16/2019 Attends Yarsani Services More than 4 times per year [...] and heating? Not hard at all 02/25/2023 [facility] Occupational Stress Questionnaire Answer [...] your living situation today? I have a [facility] place to live 03/04/2024 Education [...] PM CDT documented as of this encounter Plan of Treatment Upcoming Encounters Date Type Department Care Team (Latest Contact Info) Description 05/30/2024 2:55 PM CDT Appointment Department of Cardiovascular Diseases in [place], [place] [address] [place] [address] Derrick Malloy Jr., M.D. [address] [place] [address] Discharge Disposition: Home or Self Care 05/31/2024 2:00 PM CDT Office Visit Department of Cardiovascular Medicine in [place], [place] [address] [place] [address] Derrick Malloy Jr., M.D. [address] [place] [address] documented as of this encounter Visit Diagnoses Not on filedocumented in this encounter
--- OUTSIDE RECORDS SUMMARY | 2024-03-20 13:50 | XMS_ITS | Encounter Summary ---
Author Organization [facility] Address [address] [place] [address] Care Team Providers Care Interactive Multimedia Designer Name Role Phone Unavailable Primary Care Provider Unavailabl e Reason for Visit * Reason Onset Date Comments Previsit Preparation 03/06/2024 Encounter Details Date Type Department Care Team (Latest Contact Info) Description 03/06/2024 9:30 AM CDT Clinical Communication Virtual Review in [place], [place] 200 [place] [address] Previsit Preparation Social History Tobacco Use Types Packs/Day Years Used Date Smoking Tobacco: Former Cigarettes Smokeless Tobacco: Never Tobacco Cessation:Counseling Given: Not Answered Comments:Smoked socially for about 2 years while in teens Alcohol Use Standard Drinks/Week Comments Yes 0 (1 standard drink = 0.6 oz pur e alcohol) occ. social drink [facility] Utilities Answer Date Recorded In the past 12 months has [employer], gas, oil, or water [employer] threatened to shut off services in your [...] and Family Twice a week 05/16/2019 Attends [employer] Services More than 4 times per year [...] and heating? Not hard at all 02/25/2023 [facility] of Occupat ional Health - Occupational [...] your living situation today? I have a [facility] place to live 03/04/2024 Education Answer Date [...] CDT Appointment Department of Cardiovascular Diseases in [place], [place] [address] [place] [address] Derrick Malloy Jr., M.D. [address] [place] [address] Discharge Disposition: Home or Self Care 05/31/2024 2:00 PM CDT Office Visit Department of Cardiovascular Medicine in [place], [place] [address] [place] [address] Derrick Malloy Jr., M.D. [address] [place] [address] documented as of this encounter Visit Diagnoses Not on filedocumented in this encounter
--- OUTSIDE RECORDS SUMMARY | 2024-03-20 13:50 | XMS_ITS | Encounter Summary ---
Author Organization [facility] Address [address] [place] [address] Care Team Providers Care Nurse Case Manager Name Role Phone Unavailable Primary Care Provider Unavailabl e Reason for Visit * Reason Onset Date Comments Return Call Request 03/09/2024 Dr. Aroldo rankin [facility] is out of the office until Tuesday. Encounter Details Date Type Department Care Team (Latest Contact Info) Description 03/09/2024 Clinical Communication Department of Cardiovascular Medicine in [place], [place] [address] [place] [address] Derrick Malloy Jr., M.D. [address] [place] [phone] Return Call Request (Dr. Kendrick from [facility] is out of the office until Tuesday.) Social History Tobacco Use Types Packs/Day Years Used Date Smoking Tobacco: Former Cigarettes Smokeless Tobacco: Never Comments:Smoked socially for about 2 years while in teens Alcohol Use Standard Drinks/Week Comments Yes 0 (1 standard drink = 0.6 oz pur e alcohol) occ. social drink [facility] Utilities Answer Date Recorded In [...] and Family Twice a week 05/16/2019 Attends Hoahaoism Services More than 4 times per year [...] and heating? Not hard at all 02/25/2023 [facility] of Occupat ional Health - Occupational [...] your living situation today? I have a [facility] place to live 03/04/2024 Education Answer Date [...] PM CDT documented as of this encounter Miscellaneous Notes * Telephone Encounter - Ciara Wong - 03/12/2024 9:15 AM CDT Thank you so much, Dr. Malloy. documented in this encounter Plan of Treatment Upcoming Encounters Date Type Department Care Team (Latest Contact Info) Description 05/30/2024 2:55 PM CDT Appointment Department of Cardiovascular Diseases in [place], [place] [address] [place] [address] Derrick Malloy Jr., M.D. [address] [place] [address] Discharge Disposition: Home or Self Care 05/31/2024 2:00 PM CDT Office Visit Department of Cardiovascular Medicine in [place], [place] [address] [place] [address] Derrick Malloy Jr., M.D. 200 [place] [address] documented as of this encounter Visit Diagnoses Not on filedocumented in this encounter
--- OUTSIDE RECORDS SUMMARY | 2024-03-20 13:50 | XMS_ITS | Encounter Summary ---
Author Organization [facility] Address 200 [place] [address] Care Team Providers Care Patient Service Coordinator Name Role Phone Unavailable Primary Care Provider Unavailabl e Reason for Referral * Cardiovascular-Diagnostic (Routine) - Authorized Specialty Diagnoses / Procedures Referred By Contac t Referred To Contact Diagnoses Stenosis Aortic Valve Acquired Prosthesis Aortic Valve Procedures Echo Transthoracic (TTE) - Complex Valvular Heart Disease Derrick Malloy Jr., M.D. 200 [place] [address] [facility] Referral ID Status Reason Start Date Expiration Date V isits Requested Visits Authorized [id number] Authorized 03/12/2024 03/12/2025 1 1 Encounter Details Date Type Department Care Team (Latest Contact Info) Description 03/12/2024 Clinical Communication Department of Cardiovascular Medicine in [place], [place] [address] [place] [address] Derrick Malloy Jr., M.D. [address] [place] [phone] Social History Tobacco Use Types Packs/Day Years Used Date Smoking Tobacco: Former Cigarettes Smokeless Tobacco: Never Comments:Smoked socially for about 2 years while in teens Alcohol Use Standard Drinks/Week Comments Yes 0 (1 standard drink = 0.6 oz pur e alcohol) occ. social drink [facility] Utilities Answer Date Recorded In the [...] and heating? Not hard at all 02/25/2023 [facility] [place] of Occupat ional Health - Occupational Stress [...] your living situation today? I [facility] a [facility] live 03/04/2024 Education Answer [...] CDT Appointment Department of Cardiovascular Diseases in [place], [place] 200 [place] [address] Derrick Malloy Jr., M.D. 200 [place] [address] Discharge Disposition: Home or Self Care 05/31/2024 2:00 PM CDT Office Visit Department of Cardiovascular Medicine in [place], [place] [address] [place] [address] Derrick Malloy Jr., M.D. [address] [place] [address] Scheduled Orders Name Type Priority Associated Diagnoses Order Schedule Echo Transthoracic (TTE) - Complex Valvular Heart Disease Echocardiography Routine Stenosis Aortic Valve Acquired Prosthesis Aortic Valve Expected: 06/12/2024, Expires: 06/12/2025 documented as of this encounter Visit Diagnoses Diagnosis Stenosis Aortic Valve Acquired- Primary Prosthesis Aortic Valve documented in this encounter
--- OUTSIDE RECORDS SUMMARY | 2024-03-20 13:51 | XMS_ITS | Clinical Summary ---
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 Diaz is a very pleasant 77-year-old female who was seen in the [facility] for a 1 year follow up of aortic stenosis. She has been doing well over the past year from a heart standpoint. She denies any new cardiopulmonary symptoms today. She continues to be very physically active with walking 2 days a week, playing [employer] ball 1 day a week, and golfing [...] Comments Blood Pressure 134/82 07/01/2022 3:35 PM LAB HEAD Pulse 76 07/01/2022 3:35 PM LAB HEAD Temperature - - Respiratory Rate 16 06/22/2022 3:59 PM LAB HEAD Oxygen Saturation 97% 07/01/2022 3:35 PM LAB HEAD Inhaled Oxygen Concentration - - Weight 70.8 kg (156 lb) 07/01/2022 3:35 PM LAB HEAD Height 165.1 cm (5' 5) 07/01/2022 3:35 PM LAB HEAD Body Mass Index 25.96 07/01/2022 3:35 PM LAB HEAD Plan of Treatment Health Maintenance Due Date [...] Influenza for age 65+ 04/15/2024 Care Teams Debridging Machine Operator Relationship Specialty Start Date End Date Claudia Ren PA-C [address] [place] [address] PCP - General Emergency Medicine 06/11/22
== END 2024-03-19 11:15 | disposition home or self-care (01) ==
LOC: NFLDREF 03-20 13:47
PROVIDERS: PCP Internal Medicine; Referring Provider Internal Medicine; Visit Provider Internal Medicine
DX: Z95.2 Presence of prosthetic heart valve (principal); Z79.01 Long term (current) use of anticoagulants
CPT/HCPCS: 85610

== ENCOUNTER 2024-03-27 11:35 | Outpatient (CLI) | payer MEDICARE, SELFPAY ==
--- OUTSIDE RECORDS SUMMARY | 2024-03-30 11:51 | XMS_ITS | Referral Summary ---
Author Organization [facility] Address [address] [place] [address] Care Team Providers Care Electronic Game Developer Name Role Phone Cluadia Ren PA-C Primary Care Provider Social History [...] Recently Relevant to Health Maintenance Care Teams Electronic Game Developer Relationship Specialty Start Date End Date Claudia Ren PA-C [facility] [address] [place] [address] PCP - General Physician Trouble Locater 03/15/23
--- OUTSIDE RECORDS SUMMARY | 2024-03-30 11:51 | XMS_ITS | Encounter Summary ---
Author Organization [facility] Address [address] [place] [address] Care Team Providers Care Compliance Consultant Name Role Phone Unavailable Primary Care Provider Unavailabl e Reason for Visit * Reason Onset Date Comments Return Call Request 03/09/2024 Dr. Aroldo rankin [facility] is out of the office until Tuesday. Encounter Details Date Type Department Care Team (Latest Contact Info) Description 03/09/2024 Clinical Communication Department of Cardiovascular Medicine in [place], [place] [address] [place] [address] Derrick Malloy Jr., M.D. [address] [place] [phone] Return Call Request (Dr. Kendrick from [place] is out of the office until Tuesday.) Social History Tobacco Use Types Packs/Day Years Used Date Smoking Tobacco: Former Cigarettes Smokeless Tobacco: Never Comments:Smoked socially for about 2 years while in teens Alcohol Use Standard Drinks/Week Comments Yes 0 (1 standard drink = 0.6 oz pur e alcohol) occ. social drink [facility] Utilities Answer Date Recorded In the [...] and Family Twice a week 05/16/2019 Attends [employer]oration[employer] Services More than 4 times per year [...] and heating? Not hard at all 02/25/2023 [facility] of Occupat ional Health - [...] your living situation today? I have a [facility] place to live 03/04/2024 Education Answer [...] CDT Appointment Department of Cardiovascular Diseases in [place], [place] [address] [place] [address] Derrick Malloy Jr., M.D. [address] [place] [address] Discharge Disposition: Home or Self Care 05/31/2024 2:00 PM CDT Office Visit Department of Cardiovascular Medicine in [place], [place] [address] [place] [address] Derrick Malloy Jr., M.D. 200 [place] [address] documented as of this encounter Visit Diagnoses Not on filedocumented in this encounter
--- OUTSIDE RECORDS SUMMARY | 2024-03-30 11:51 | XMS_ITS | Encounter Summary ---
Author Organization [facility] Address [address] [place] [address] Care Team Providers Care Lan Specialist Name Role Phone Unavailable Primary Care Provider Unavailabl e Reason for Visit * Reason Onset Date Comments Appt Request 03/13/2024 Encounter Details Date Type Department Care Team (Latest Contact Info) Description 03/13/2024 Clinical Communication Department of Cardiovascular Medicine in [place], [place] [address] [place] [phone] Derrick Malloy Jr., M.D. [address] [place] [phone] Appt Request Social History Tobacco Use Types [...] and Family Twice a week 05/16/2019 Attends Jainism Services More than 4 times per year [...] and heating? Not hard at all 02/25/2023 [facility] - Occupational Stress Questionnaire Answer [...] living situation today? I have a [facility] place to live 03/04/2024 Education Answer [...] CDT Appointment Department of Cardiovascular Diseases in [place], [place] [address] [place] [address] Derrick Malloy Jr., M.D. [address] [place] [address] Discharge Disposition: Home or Self Care 05/31/2024 2:00 PM CDT Office Visit Department of Cardiovascular Medicine in [place], [place] [address] [place] [address] Derrick Malloy Jr., M.D. [address] [place] [address] documented as of this encounter Visit Diagnoses Not on filedocumented in this encounter
--- OUTSIDE RECORDS SUMMARY | 2024-03-30 11:51 | XMS_ITS ---
Author Organization [facility] Address [address] [place] [address] Care Team Providers Care Mechanical Drawing Teacher Name Role Phone Unavailable Unavailable Unavailable Surgery Details Not on file Complications Check Surgery Details section. Procedure Estimated Blood Loss Check Surgery Details section. Procedure Findings Check Surgery Details section. Procedure Specimens Taken Check Surgery Details section.
--- OUTSIDE RECORDS SUMMARY | 2024-03-30 11:51 | XMS_ITS | Encounter Summary ---
Author Organization [facility] Address [address] [place] [address] Care Team Providers Care Community Health Nurse Name Role Phone Unavailable Primary Care Provider Unavailabl e Encounter Details Date Type Department Care Team (Late st Contact Info) Description 03/12/2024 Documentation Department of Cardiovascular Medicine in [place], [place] [address] [place] [address] Derrick Malloy Jr., M.D. [address] [place] [phone] Social History Tobacco Use Types Packs/Day Years Used Date Smoking Tobacco: Former Cigarettes Smokeless Tobacco: Never Comments:Smoked socially for about 2 years while in teens Alcohol Use Standard Drinks/Week Comments Yes 0 (1 standard drink = 0.6 oz pur e alcohol) occ. social drink [facility] Utilities Answer Date Recorded In the [...] and heating? Not hard at all 02/25/2023 [facility] of Occupat ional Health - Occupational Stress [...] your living situation today? I have a [facility] place to live 03/04/2024 Education Answer [...] her home care physician, Dr. Kendrick, at [phone], who will anticoagulate the patient for 3-4 [...] CDT Appointment Department of Cardiovascular Diseases in [place], [place] [address] [place] [address] Derrick Malloy Jr., M.D. [address] [place] [address] Discharge Disposition: Home or Self Care 05/31/2024 2:00 PM CDT Office Visit Department of Cardiovascular Medicine in [place], [place] [address] [place] [address] Derrick Malloy Jr., M.D. [address] [place] [phone] documented as of this encounter Visit Diagnoses Not on filedocumented in this encounter
--- OUTSIDE RECORDS SUMMARY | 2024-03-30 11:51 | XMS_ITS | Encounter Summary ---
Author Organization [facility] Address [address] [place] [address] Care Team Providers Care Lobby Concierge Name Role Phone Unavailable Primary Care Provider Unavailabl e Reason for Referral * Cardiovascular-Diagnostic (Routine) - Authorized Specialty Diagnoses / Procedures Referred By Contac t Referred To Contact Diagnoses Stenosis Aortic Valve Acquired Prosthesis Aortic Valve Procedures Echo Transthoracic (TTE) - Complex Valvular Heart Disease Derrick Malloy Jr., M.D. 200 [place] [address] [facility] Referral ID Status Reason Start Date Expiration Date V isits Requested Visits Authorized [id number] Authorized 03/12/2024 03/12/2025 1 1 Encounter Details Date Type Department Care Team (Latest Contact Info) Description 03/12/2024 Clinical Communication Department of Cardiovascular Medicine in [place], [place] [address] [place] [address] Derrick Malloy Jr., M.D. [address] [place] [phone] Social History Tobacco Use Types Packs/Day Years Used Date Smoking Tobacco: Former Cigarettes Smokeless Tobacco: Never Comments:Smoked socially for about 2 years while in teens Alcohol Use Standard Drinks/Week Comments Yes 0 (1 standard drink = 0.6 oz pur e alcohol) occ. social drink [facility] Utilities Answer Date Recorded In the [...] and Family Twice a week 05/16/2019 Attends Denominational Services More than 4 times per year [...] and heating? Not hard at all 02/25/2023 [facility] [place] of Occupat ional Health - Occupational Stress [...] your living situation today? I have a [facility] place to live 03/04/2024 Education [...] CDT Appointment Department of Cardiovascular Diseases in [place], [place] 200 [place] [address] Derrick Malloy Jr., M.D. 200 [place] [address] Discharge Disposition: Home or Self Care 05/31/2024 2:00 PM CDT Office Visit Department of Cardiovascular Medicine in [place], [place] [address] [place] [address] Derrick Malloy Jr., M.D. [address] [place] [address] Scheduled Orders Name Type Priority Associated Diagnoses Order Schedule Echo Transthoracic (TTE) - Complex Valvular Heart Disease Echocardiography Routine Stenosis Aortic Valve Acquired Prosthesis Aortic Valve Expected: 06/12/2024, Expires: 06/12/2025 documented as of this encounter Visit Diagnoses Diagnosis Stenosis Aortic Valve Acquired- Primary Prosthesis Aortic Valve documented in this encounter
--- OUTSIDE RECORDS SUMMARY | 2024-03-30 11:51 | XMS_ITS | Clinical Summary ---
Author Organization [facility] Address [address] [place] [address] Care Team Providers Care Gasfitter Name Role Phone Claudia Ren PA-C Primary [...] Recently Relevant to Health Maintenance Care Teams Gasfitter Relationship Specialty Start Date End Date Claudia Ren PA-C [facility] [address] [place] [address] PCP - General Physician Gastroenterology Nurse 03/15/23
--- OUTSIDE RECORDS SUMMARY | 2024-03-30 11:51 | XMS_ITS | Referral Summary ---
Author Organization [facility] Address [address] [place] [address] Care Team Providers Care Mechatronics Technologist Name Role Phone Unavailable Primary Care Provider Unavailabl e Source Comments Patient records contain information from all sites at [facility]. For routine questions regarding patient records, call [phone] during business hours, M-F 8:00 AM - 5:00 PM Central Time. Record requests for emergency care only can be directed to [phone] at any time.[facility] Encounters Date Type Department Care Team Description 03/13/2024 Clinical Communication Department of Cardiovascular Medicine in [place], [place] [address] [place] [address] Derrick Malloy Jr., M.D. Appt Request 03/12/2024 Clinical Communication Department of Cardiovascular Medicine in [place], [place] [address] [place] [address] Derrick Malloy Jr., M.D. 03/12/2024 Documentation Department of Cardiovascular Medicine in [place], [place] [address] [place] [phone] Derrick Malloy Jr., M.D. 03/09/2024 Clinical Communication Department of Cardiovascular Medicine in [place], [place] [address] [place] [address] Derrick Malloy Jr., M.D. Return Call Request (Dr. Kendrick from [place] is out of the office until Tuesday.) 03/08/2024 9:53 AM CDT - 03/08/2024 12:10 PM CDT Hospital Encounter Department of Laboratory Medicine and Pathology, [facility] in [place], [place] [address] [place] [phone] Shoshana Araujo APRN, C.NGilmar, M.S.N. Replacement Aortic Valve Tissue Discharge Disposition: Home or Self Care 03/08/2024 12:11 PM CDT - 03/08/2024 11:59 PM CDT Hospital Encounter Department of Cardiovascular Diseases in [place], [place] [address] [place] [phone] Shoshana Araujo APRN, C.N.P., M.S.N. Replacement Aortic Valve Tissue Discharge Disposition: Home or Self Care 03/08/2024 8:39 AM CDT - 03/08/2024 9:52 AM CDT Hospital Encounter Department of Radiology, [facility] in [place], [place] [address] [place] [phone] Shoshana Araujo APRN, C.NRamon., M.S.N. Replacement Aortic Valve Tissue Discharge Disposition: Home or Self Care 03/08/2024 4:00 PM CDT Office Visit Department of Cardiovascular Medicine in [address] [address] Derrick Malloy Jr., M.D. Stenosis Aortic Valve Acquired (Primary Dx); Prosthesis Aortic Valve; Hypertension Essential Primary; Hyperlipidemia On Treatment; Cancer Breast Personal History 03/06/2024 9:30 AM CDT Clinical Communication Virtual Review in [place], [place] 200 [place] [address] Previsit Preparation from Last 3 Months Allergies [...] Treatment 04/29/2022 Atherosclerotic Heart Diseas e Of [place] Coronary Artery Without Angina Pectoris 04/29/2022 Hypertension Essential Primary 04/29/2022 Assessment & Plan (04/29/2022 1:41 PM CDT): Mrs. Diaz is a very pleasant 77-year-old female who was seen in the [facility] for a 1 year follow up of aortic stenosis. She has been doing well over the past year from a heart standpoint. She denies any new cardiopulmonary symptoms today. She continues to be very physically active with walking 2 days a week, playing [employer] ball 1 day a week, and golfing [...] oz pur e alcohol) occ. social drink [facility] Utilities Answer Date Recorded In the past 12 months has e [employer], gas, oil, or water [employer] threatened to shut off services in your [...] and Family Twice a week 05/16/2019 Attends Alevism Services More than 4 times per year [...] your living situation today? I have a [facility] place to live 03/04/2024 Education [...] CDT Appointment Department of Cardiovascular Diseases in [place], [place] 200 [place] [phone] Derrick Malloy Jr., M.D. 200 [place] [phone] Discharge Disposition: Home or Self Care 05/31/2024 2:00 PM CDT Office Visit Department of Cardiovascular Medicine in [place], [place] [address] [place] [address] Derrick Malloy Jr., M.D. [address] [place] [address] Medical Devices Implanted Type Area Inside Sales Recruiter Device Identifier Shelf Expiration Date Model / Serial / Lot Breast Implant Breast Implant Bilateral : Breast Vlv Dayan S3 Ultra 23 - [id number] - [id number] Implanted:Qty : 1 on 03/07/2023 by Carrington Castillo M.D., Ph.D. at [facility] Cardiac Valve Prosthesis N/A: Heart [employer] 06/16/2025 [id number] / [id number] / Description:Aortic Valve Ocular Lens Ocular Lens [...] ECHO DOPPLER COLOR (03/08/2024 1:42 PM CDT) [facility] Ejection Fraction 71 MC CV EIMS Proximal [...] Araujo APRN, C.N.P., M.S.N. [place] [address], [facility] [place] [address] * Prothrombin Time (PT) (03/08/2024 10:30 AM [...] Karine Davidson APRNN.P., M.S.N. LAB BLOOD ADD-ON [facility] [address] [place] [address], [facility] DTL [facility] [address] [place] [address] * CBC with Differential, Blood (03/08/2024 10:30 [...] Araujo APRN, C.N.P., M.S.N. LAB BLOOD ADD-ON [facility] 200 [place] [address], [facility] 200 [place] [address] [facility] 200 [place] [address] * Sodium (03/08/2024 10:30 AM CDT) Sodium, S 141 135 - 145 mmol/L 03/08/2024 12:04 PM CDT DTL Blood (Blood, Venous) 03/08/2024 10:30 AM CDT 03/08/2024 11:09 AM CDT Shoshana Araujo APRN, C.N.P., M.S.N. LAB BLOOD ADD-ON [facility] [address] [place] [address], [facility] 200 [place] [address] * Potassium (03/08/2024 10:30 AM CDT) Potassium, S 4.6 3.6 - 5.2 mmol/L 03/08/2024 12:04 PM CDT DTL Blood (Blood, Venous) 03/08/2024 10:30 AM CDT 03/08/2024 11:09 AM CDT Shoshana Araujo APRN, C.N.P., M.S.N. LAB BLOOD ADD-ON [facility] [address] [place] [address], [facility] 200 [place] [address] * Glucose, Fasting (03/08/2024 10:30 AM CDT) Glucose, P 87 70 - 100 mg/dL 03/08/2024 11:27 AM CDT DTL Last Intake 17 hr 03/08/2024 11:09 AM CDT DTL Blood (Blood, Venous) 03/08/2024 10:30 AM CDT 03/08/2024 11:09 AM CDT Shoshana Araujo APRN, C.N.P., M.S.N. LAB BLOOD NON ADD-ON Performing Organization Address City/[facility] Co de Phone Number [facility] 200 [place] [address], [facility] 200 [place] [address] * Creatinine with Estimated GFR (03/08/2024 10:30 AM CDT) Creatinine 0.78 0.59 - 1.04 mg/dL 03/08/2024 12:04 PM CDT DTL Estimated GFR (eGFR) 77 >=60 mL/min/BSA 03/08/2024 12:04 PM CDT DTL Comment: Estimated GFR calculated using the 2020 CKD_EPI creatinine equation. Blood (Blood, Venous) 03/08/2024 10:30 AM CDT 03/08/2024 11:09 AM CDT Shoshana Araujo APRN, C.N.P., M.S.N. LAB BLOOD ADD-ON [facility] [address] [place] [address], [facility] 200 [place] [address] * Albumin (03/08/2024 10:30 AM CDT) Albumin, S 4.2 3.5 - 5.0 g/dL 03/08/2024 12:04 PM CDT DTL Blood (Blood, Venous) 03/08/2024 10:30 AM CDT 03/08/2024 11:09 AM CDT Shoshana Araujo APRN, C.N.P., M.S.N. LAB BLOOD ADD-ON Performing Organization Address City/[facility]/ZIP Co de Phone Number [facility] [address] [place] [address], [place] DTL [facility] [address] [place] [address] * ECG 12 Lead (03/08/2024 9:07 AM CDT) Ventricular Rate ECG/Min 62 BPM MUSE [place] Interval 192 ms MUSE QRSD Interval 78 ms MUSE QT Interval 418 ms MUSE QTC Interval 424 ms MUSE P Beauty 24 degrees MUSE R Beauty -5 degrees MUSE T Wave Beauty 50 degrees MUSE 03/08/2024 9:07 AM CDT [...] C.N.P., M.S.N. ECG ORDERABLES Performing Organization Address City/[facility]/ZIP Co de Phone Number MUSE NA * [...] of the ascending thoracic aorta, 40 mm (fnap-qo-pgzs double oblique and series 1000). Postoperative changes [...] dilatation of the ascending thoracic aorta, 40 mm(dsft-ra-vccx double oblique and series 1000). Postoperative changes [...] Advance Directives For more information, please contact: [phone] * Full Code (Latest Code Status on File) Date Activated Date Inactivated Comments 03/07/2023 11:55 AM 03/08/2023 1:14 PM Question Answer Comments Full Code: Discussed
--- OUTSIDE RECORDS SUMMARY | 2024-03-30 11:51 | XMS_ITS | Clinical Summary ---
Author Organization [facility] Address [address] [place] [address] Care Team Providers Care Can Conveyor Feeder Name Role Phone Unavailable Primary Care Provider Unavailabl e Source Comments Patient records contain information from all sites at [facility]. For routine questions regarding patient records, call [phone] during business hours, M-F 8:00 AM - 5:00 PM Central Time. Record requests for emergency care only can be directed to [phone] at any time.[facility] Allergies Active Allergy Reactions Criticality Noted Date [...] Treatment 04/29/2022 Atherosclerotic Heart Diseas e Of [place] Coronary Artery Without Angina Pectoris 04/29/2022 Hypertension Essential Primary 04/29/2022 Assessment & Plan (04/29/2022 1:41 PM CDT): Mrs. Diaz is a very pleasant 77-year-old female who was seen in the [facility] for a 1 year follow up of aortic stenosis. She has been doing well over the past year from a heart standpoint. She denies any new cardiopulmonary symptoms today. She continues to be very physically active with walking 2 days a week, playing [employer] ball 1 day a week, and golfing [...] Clinical Communication Department of Cardiovascular Medicine in [place], [place] [address] [place] [address] Derrick Malloy Jr., M.D. Appt Request 03/12/2024 Clinical Communication Department of Cardiovascular Medicine in [place], [place] [address] [place] [address] Derrick Malloy Jr., M.D. 03/12/2024 Documentation Department of Cardiovascular Medicine in [place], [place] [address] [place] [phone] Derrick Malloy Jr., M.D. 03/09/2024 Clinical Communication Department of Cardiovascular Medicine in [place], [place] [address] [place] [phone] Derrick Malloy Jr., M.D. Return Call Request (Dr. Kendrick from [facility] is out of the office until Tuesday.) 03/08/2024 4:00 PM CDT Office Visit Department of Cardiovascular Medicine in [place], [place] [address] [place] [address] Derrick Malloy Jr., M.D. Stenosis Aortic Valve Acquired (Primary Dx); Prosthesis Aortic Valve; Hypertension Essential Primary; Hyperlipidemia On Treatment; Cancer Breast Personal History 03/08/2024 12:11 PM CDT - 03/08/2024 11:59 PM CDT Hospital Encounter Department of Cardiovascular Diseases in [place], [place] [address] [place] [phone] Shoshana Araujo APRN, C.N.P., M.S.N. Replacement Aortic Valve Tissue Discharge Disposition: Home or Self Care 03/08/2024 9:53 AM CDT - 03/08/2024 12:10 PM CDT Hospital Encounter Department of Laboratory Medicine and Pathology, [facility] in [place], [place] [address] [place] [phone] Shoshana Araujo APRN, C.N.P., M.S.N. Replacement Aortic Valve Tissue Discharge Disposition: Home or Self Care 03/08/2024 8:39 AM CDT - 03/08/2024 9:52 AM CDT Hospital Encounter Department of Radiology, [facility] in [place], [place] [address] [place] [phone] Shoshana Araujo APRN, C.N.P., M.S.N. Replacement Aortic Valve Tissue Discharge Disposition: Home or Self Care 03/06/2024 9:30 AM CDT Clinical Communication Virtual Review in [place], [place] 200 [place] [address] Previsit Preparation from Last 3 Months Immunizations [...] oz pur e alcohol) occ. social drink [facility] Utilities Answer Date Recorded In the past 12 months has e [employer], gas, oil, or water [email or web address] threatened to shut off services in your [...] and Family Twice a week 05/16/2019 Attends Roman Catholic Services More than 4 times per year [...] and heating? Not hard at all 02/25/2023 [facility] - Occupational [...] your living situation today? I have a [facility] place to live 03/04/2024 Education Answer [...] CDT Appointment Department of Cardiovascular Diseases in [place], [place] [address] [place] [address] Derrick Malloy Jr., M.D. 200 [place] [phone] Discharge Disposition: Home or Self Care 05/31/2024 2:00 PM CDT Office Visit Department of Cardiovascular Medicine in [place], [place] [address] [place] [address] Derrick Malloy Jr., M.D. [address] [place] [address] Health Maintenance Due Date Last Done Comments [...] Completed 03/08/2024 Medical Devices Implanted Type Area Marketing Services Vice President Device Identifier Shelf Expiration Date Model / Serial / Lot Breast Implant Breast Implant Bilateral : Breast Vlv Dayan S3 Ultra 23 - [id number] - [id number] Implanted:Qty : 1 on 03/07/2023 by Carrington Castillo M.D., Ph.D. at [facility] Cardiac Valve Prosthesis N/A: Heart [employer] 06/16/2025 [id number] / [id number] / Description:Aortic Valve Ocular Lens Ocular Lens [...] M.S.N. LAB BLOOD ADD-ON Performing Organization Address [facility] Co de Phone Number [facility] [address] [facility] 200 [place] [address] * Prothrombin Time (PT) (03/08/2024 10:30 AM CDT) Pathologist [facility] Prothrombin Time, P 10.9 9.4 - 12.5 [...] M.S.N. LAB BLOOD ADD-ON Performing Organization Address City/[facility] Co de Phone Number [facility] 200 [place] [address], [facility] 200 [place] [address] * CBC with Differential, Blood (03/08/2024 10:30 [...] Araujo APRN C.N.P., M.S.N. LAB BLOOD ADD-ON [facility] [address] [place] [address], [facility] DTL [facility] [address] [place] [address] [facility] [address] [place] [address] * Sodium (03/08/2024 10:30 AM CDT) [facility] Signature Sodium, S 141 135 - 145 mmol/L 03/08/2024 12:04 PM CDT DTL Blood (Blood, Venous) 03/08/2024 10:30 AM CDT 03/08/2024 11:09 AM CDT Shoshana Araujo APRN, C.N.P., M.S.N. LAB BLOOD ADD-ON [facility] [address] [place] [address] * Potassium (03/08/2024 10:30 AM CDT) Potassium, S 4.6 3.6 - 5.2 mmol/L 03/08/2024 12:04 PM CDT DT Blood (Blood, Venous) 03/08/2024 10:30 AM CDT 03/08/2024 11:09 AM CDT Shoshana Araujo APRN, C.N.P., M.S.N. LAB BLOOD ADD-ON Performing Organization Address City/[facility] Co de Phone Number [facility] [address] [place] [address] * Glucose, Fasting (03/08/2024 10:30 AM CDT) Glucose, P 87 70 - 100 mg/dL 03/08/2024 11:27 AM CDT DTL Last Intake 17 hr 03/08/2024 11:09 AM CDT DT Blood (Blood, Venous) 03/08/2024 10:30 AM CDT 03/08/2024 11:09 AM CDT Shoshana Araujo APRN, C.N.P., M.S.N. LAB BLOOD NON ADD-ON [facility] [address] [place] [address] [place] [address] * Creatinine with Estimated GFR (03/08/2024 10:30 AM CDT) Pathologist [facility] Creatinine 0.78 0.59 - 1.04 mg/dL 03/08/2024 12:04 PM CDT DT Estimated GFR (eGFR) 77 >=60 mL/min/BSA 03/08/2024 12:04 PM CDT DT Comment: Estimated GFR calculated using the 2020 CKD_EPI creatinine equation. Blood (Blood, Venous) 03/08/2024 10:30 AM CDT 03/08/2024 11:09 AM CDT Shoshana Araujo APRN, C.N.P., M.S.N. LAB BLOOD ADD-ON [facility] [address] [place], [place] [address] [address] [place] [address] * Albumin (03/08/2024 10:30 AM CDT) Pathologist [facility] Albumin, S 4.2 3.5 - 5.0 g/dL 03/08/2024 12:04 PM CDT DT Blood (Blood, Venous) 03/08/2024 10:30 AM CDT 03/08/2024 11:09 AM CDT Shosahna Araujo APRN, C.N.P., M.S.N. LAB BLOOD ADD-ON [facility] [address] [place], [place] [address] [place] [address] * ECG 12 Lead (03/08/2024 9:07 AM CDT) Pathologist [facility] Ventricular Rate ECG/Min 62 BPM MUSE [place] Interval 192 ms MUSE QRSD Interval 78 ms MUSE QT Interval 418 ms MUSE QTC Interval 424 ms MUSE P [place]in[place] 24 degrees MUSE R [place] -5 degrees MUSE T Wave [place] 50 degrees MUSE 03/08/2024 9:07 AM CDT [...] of the ascending thoracic aorta, 40 mm (kuul-ug-wpnp double oblique and series 1000). Postoperative changes [...] dilatation of the ascending thoracic aorta, 40 mm(qjwa-ws-lzxm double oblique and series 1000). Postoperative changes [...] Advance Directives For more information, please contact: [phone] * Full Code (Latest Code Status on File) Date Activated Date Inactivated Comments 03/07/2023 11:55 AM 03/08/2023 1:14 PM Question Answer Comments Full Code: Discussed
--- OUTSIDE RECORDS SUMMARY | 2024-03-30 11:52 | XMS_ITS | Clinical Summary ---
Author Organization [facility] Address [address] [place] [address] Care Team Providers Care Plum Packer Name Role Phone Needs Pcp, Assignment Primary Care Provider [phone] Source Comments You are receiving this document as you are listed as the primary care provider,follow-up provider, or the patient has been referred to you for consultation.This is in compliance with the Medicare andUniversity Hospitals Geneva Medical Centercaid EHR Incentive Program,which states Providers who transition their patient to another setting of careor provider of care or refers their patient to another provider of care shouldprovide summary care record for each transition of care or referral. [facility] Allergies Active Allergy Reactions Criticality Noted Date [...] Problem Noted Date Diagnosed Date Headache 05/23/2012 Overview (04/06/2017): Headache(784.0) Hyperparathyroidism 05/23/2012 Overview (03/18/2016): S/p partial paroidectomy Hyperlipidemia 05/23/2012 Overview (04/06/2017): Other and unspecified hyperlipidemia Osteopenia 05/23/2012 Migraine 05/23/2012 S/P partial thyroidectomy 05/23/2012 Osteoarthritis of multiple joints 05/23/2012 Overview (04/06/2017): Osteoarthrosis involving, or with mention of more [...] age to complete this topic Care Teams Plum Packer Relationship Specialty Start Date End Date Needs Pcp, [place] [address] PCP - General 06/05/21
--- OUTSIDE RECORDS SUMMARY | 2024-03-30 11:52 | XMS_ITS | Encounter Summary ---
Author Organization [facility] Address [address] [place] [address] Care Team Providers Care Digital Marketing Specialist Name Role Phone Unavailable Primary Care Provider Unavailabl e Reason for Visit * Outpatient (Routine) - Closed Specialty Diagnoses / Procedures Referred By Nathan galloway Referred To Contact Cardiovascular Disease Shoshana Araujo APRN CNicholasNNicholasP., M.S.N. 200 [place] [address] [facility] Referral ID Status Reason Start Date Expiration Date Visits Re quested Visits Authorized [id number] Closed 05/25/2023 05/24/2026 1 1 Encounter Details Date Type Department Care Team (Latest Contact Info) Description 03/08/2024 4:00 PM CDT Office Visit Department of Cardiovascular Medicine in [place], [place] [address] [place] [phone] Derrick Malloy Jr., M.D. 200 [place] [phone] Stenosis Aortic Valve Acquired (Primary Dx); Prosthesis Aortic Valve; Hypertension Essential Primary; Hyperlipidemia On Treatment; Cancer Breast Personal History Social History Tobacco Use Types Packs/Day Years Used Date Smoking Tobacco: Former Cigarettes Smokeless Tobacco: Never Comments:Smoked socially for about 2 years while in teens Alcohol Use Standard Drinks/Week Comments Yes 0 (1 standard drink = 0.6 oz pur e alcohol) occ. social drink [facility] Utilities Answer Date Recorded In the [...] and Family Twice a week 05/16/2019 Attends Islam Services More than 4 times per year [...] and heating? Not hard at all 02/25/2023 [facility] [place] of Occupat ional Health - Occupational Stress [...] your living situation today? I have a [facility] place to live 03/04/2024 Education Answer [...] including rate of 62 beats per minute, AR interval of 192 milliseconds, axis, voltage, QRS [...] also to her home physician in the [facility], Dr. Pam Kendrick. Derrick Malloy Jr., M.D. 03/08/2024 documented in this encounter Plan of Treatment Upcoming Encounters Date Type Department Care Team (Latest Contact Info) Description 05/30/2024 2:55 PM CDT Appointment Department of Cardiovascular Diseases in [place], [place] [address] [place] [address] Derrick Malloy Jr., M.D. [address] [place] [address] Discharge Disposition: Home or Self Care 05/31/2024 2:00 PM CDT Office Visit Department of Cardiovascular Medicine in [place], [place] [address] [place] [phone] Derrick Malloy Jr., M.D. [address] [place] [phone] documented as of this encounter Visit Diagnoses Diagnosis Stenosis Aortic Valve Acquired- Primary Prosthesis Aortic Valve Hypertension Essential Primary Hyperlipidemia On Treatment Cancer Breast Personal History documented in this encounter
--- OUTSIDE RECORDS SUMMARY | 2024-03-30 11:52 | XMS_ITS | Clinical Summary ---
Author Organization [facility] Address [place], [place] [address] Care Team Providers Care Customer Assistance Associate Name Role Phone Claudia Ren PA-C Primary Care Provider [phone] Allergies Active Allergy Reactions Criticality Noted Date [...] stenosis 04/29/2022 Atherosclerotic heart diseas e of [place] coronary artery without angina pectoris 04/29/2022 Primary hypertension 04/29/2022 Overview: Last Assessment & Plan: Mrs. Diaz is a very pleasant 77-year-old female who was seen in the [facility] for a 1 year follow up of aortic stenosis. She has been doing well over the past year from a heart standpoint. She denies any new cardiopulmonary symptoms today. She continues to be very physically active with walking 2 days a week, playing [email or web address] ball 1 day a week, and golfing [...] Comments Blood Pressure 134/82 07/01/2022 3:35 PM CHIMNEY BUILDER Pulse 76 07/01/2022 3:35 PM CHIMNEY BUILDER Temperature - - Respiratory Rate 16 06/22/2022 3:59 PM CHIMNEY BUILDER Oxygen Saturation 97% 07/01/2022 3:35 PM CHIMNEY BUILDER Inhaled Oxygen Concentration - - Weight 70.8 kg (156 lb) 07/01/2022 3:35 PM CHIMNEY BUILDER Height 165.1 cm (5' 5) 07/01/2022 3:35 PM CHIMNEY BUILDER Body Mass Index 25.96 07/01/2022 3:35 PM CHIMNEY BUILDER Plan of Treatment Health Maintenance Due Date [...] Influenza for age 65+ 04/15/2024 Care Teams Customer Assistance Associate Relationship Specialty Start Date End Date Claudia Ren PA-C [address] [place] [address] PCP - General Emergency Medicine 06/11/22
--- OUTSIDE RECORDS SUMMARY | 2024-03-30 11:52 | XMS_ITS | Encounter Summary ---
Author Organization [facility] Address [address] [place] [id number] Care Team Providers Care Inventory Planner Name Role Phone Unavailable Primary Care Provider Unavailabl e Reason for Referral * MRI/CAT/PET Scan (Routine) - Closed Specialty Diagnoses / Procedures Referred By Nathan galloway Referred To Contact Radiology Diagnoses Replacement Aortic Valve Tissue Procedures CT Chest without IV Contrast Shoshana Araujo APRN, C.NGilmar, M.S.N. [address] [place] [phone] [facility] Referral ID Status Reason Start Date Expiration Date Visits Re quested Visits Authorized [id number] Closed 05/25/2023 05/24/2024 1 1 Reason for Visit * MRI/CAT/PET Scan (Routine) - Closed Specialty Diagnoses / Procedures Referred By Nathan galloway Referred To Contact Radiology Diagnoses Replacement Aortic Valve Tissue Procedures CT Chest without IV Contrast Shoshana Araujo APRN, C.N.Margi, M.S.N. [address] [place] [phone] [facility] Referral ID Status Reason Start Date Expiration Date Visits Re quested Visits Authorized [id number] Closed 05/25/2023 05/24/2024 1 1 Encounter Details Date Type Department Care Team (Latest Contact Info) Description 03/08/2024 8:39 AM CDT - 03/08/2024 9:52 AM CDT Hospital Encounter Department of Radiology, [facility], in [place], [place] [address] [place] [address] Shoshana Araujo APRN, C.N.P., M.S.N. [address] [place] [address] Replacement Aortic Valve Tissue Discharge Disposition: Home or Self Care Social History Tobacco Use Types Packs/Day Years Used Date Smoking Tobacco: Former Cigarettes Smokeless Tobacco: Never Comments:Smoked socially for about 2 years while in teens Alcohol Use Standard Drinks/Week Comments Yes 0 (1 standard drink = 0.6 oz pur e alcohol) occ. social drink [facility] Utilities Answer Date Recorded In the past 12 months has [employer], gas, oil, or water [employer] threatened to shut off services in your [...] and Family Twice a week 05/16/2019 Attends Rastafari Services More than 4 times per year [...] all 02/25/2023 [facility] - Occupational Stress Questionnaire Answer Date [...] CDT Appointment Department of Cardiovascular Diseases in [place], [place] [address] [place] [address] Derrick Malloy Jr., M.D. [address] [place] [address] Discharge Disposition: Home or Self Care 05/31/2024 2:00 PM CDT Office Visit Department of Cardiovascular Medicine in [place], [place] [address] [place] [address] Derrick Malloy Jr., M.D. [address] [place] [address] documented as of this encounter Procedures Procedure [...] of the ascending thoracic aorta, 40 mm (smle-[id number] double oblique and series 1000). Postoperative changes [...] dilatation of the ascending thoracic aorta, 40 mm(jydd-pk-[id number] double oblique and series 1000). Postoperative changes [...]
--- OUTSIDE RECORDS SUMMARY | 2024-03-30 11:52 | XMS_ITS | Encounter Summary ---
Author Organization [facility] Address [address] [place] [address] Care Team Providers Care Respiratory Therapy Assistant Name Role Phone Unavailable Primary Care Provider Unavailabl e Reason for Visit * Reason Onset Date Comments Previsit Preparation 03/06/2024 Encounter Details Date Type Department Care Team (Latest Contact Info) Description 03/06/2024 9:30 AM CDT Clinical Communication Virtual Review in [place], [place] 200 [place] [address] Previsit Preparation Social History Tobacco Use Types Packs/Day Years Used Date Smoking Tobacco: Former Cigarettes Smokeless Tobacco: Never Tobacco Cessation:Counseling Given: Not Answered Comments:Smoked socially for about 2 years while in teens Alcohol Use Standard Drinks/Week Comments Yes 0 (1 standard drink = 0.6 oz pur e alcohol) occ. social drink [facility] Utilities Answer Date Recorded In the past 12 months has [employer] gas, oil, or water [employer] threatened to shut off services in your [...] and Family Twice a week 05/16/2019 Attends Rastafarian Services More than 4 times per year [...] and heating? Not hard at all 02/25/2023 [facility] Occupat ional Health - Occupational [...] your living situation today? I have a [facility] place to live 03/04/2024 Education Answer [...] CDT Appointment Department of Cardiovascular Diseases in [place], [place] [address] [place] [address] Derrick Malloy Jr., M.D. [address] [place] [address] Discharge Disposition: Home or Self Care 05/31/2024 2:00 PM CDT Office Visit Department of Cardiovascular Medicine in [place], [place] [address] [place] [address] Derrick Malloy Jr., M.D. [address] [place] [address] documented as of this encounter Visit Diagnoses Not on filedocumented in this encounter
--- OUTSIDE RECORDS SUMMARY | 2024-03-30 11:52 | XMS_ITS | Encounter Summary ---
Author Organization [facility] Address [address] [place] [address] Care Team Providers Care Nut Sorter Operator Name Role Phone Unavailable Primary Care Provider Unavailabl e Reason for Referral * Outpatient (Routine) - Closed Specialty Diagnoses / Procedures Referred By Nathan galloway Referred To Contact Diagnoses Replacement Aortic Valve Tissue Procedures Echo Transthoracic (TTE) - Complex Valvular Heart Disease Shoshana Araujo APRN, C.NGilmar, M.S.N. [address] [place] [phone] [facility] Referral ID Status Reason Start Date Expiration Date Visits Re quested Visits Authorized [id number] Closed 05/25/2023 05/24/2024 1 1 Reason for Visit * Outpatient (Routine) - Closed Specialty Diagnoses / Procedures Referred By Nathan galloway Referred To Contact Diagnoses Replacement Aortic Valve Tissue Procedures Echo Transthoracic (TTE) - Complex Valvular Heart Disease Shoshana Araujo APRN, C.N.Margi, M.S.N. [address] [place] [phone] [facility] Referral ID Status Reason Start Date Expiration Date Visits Re quested Visits Authorized [id number] Closed 05/25/2023 05/24/2024 1 1 Encounter Details Date Type Department Care Team (Latest Contact Info) Description 03/08/2024 12:11 PM CDT - 03/08/2024 11:59 PM CDT Hospital Encounter Department of Cardiovascular Diseases in [place], [place] [address] [place] [address] Shoshana Araujo, EDA, C.N.P., M.S.N. [address] [place] [address] Replacement Aortic Valve Tissue Discharge Disposition: Home or Self Care Social History Tobacco Use Types Packs/Day Years Used Date Smoking Tobacco: Former Cigarettes Smokeless Tobacco: Never Comments:Smoked socially for about 2 years while in teens Alcohol Use Standard Drinks/Week Comments Yes 0 (1 standard drink = 0.6 oz pur e alcohol) occ. social drink [facility] Utilities Answer Date Recorded In the past 12 months has [employer], gas, oil, or water [email or web address] threatened to shut off services in your [...] and Family Twice a week 05/16/2019 Attends Protestant Services More than 4 times per year [...] and heating? Not hard at all 02/25/2023 [facility] ional [facility] - Occupational [...] CDT Appointment Department of Cardiovascular Diseases in [place], [place] [address] [place] [address] Derrick Malloy Jr., M.D. 200 [place] [phone] Discharge Disposition: Home or Self Care 05/31/2024 2:00 PM CDT Office Visit Department of Cardiovascular Medicine in [place], [place] [address] [place] [address] Derrick Malloy Jr., M.D. [address] [place] [phone] documented as of this encounter Procedures Procedure [...]
--- OUTSIDE RECORDS SUMMARY | 2024-03-30 11:52 | XMS_ITS | Encounter Summary ---
Author Organization [facility] Address [address] [place] [address] Care Team Providers Care Seal Skinner Name Role Phone Unavailable Primary Care Provider Unavailabl e Encounter Details Date Type Department Care Team (Latest Contact Info) Description 03/08/2024 9:53 AM CDT - 03/08/2024 12:10 PM CDT Hospital Encounter Department of Laboratory Medicine and Pathology, [facility], in [place], [place] [address] [place] [phone] Shoshana Araujo, EDA, C.N.P., M.S.N. [address] [place] [phone] Replacement Aortic Valve Tissue Discharge Disposition: Home or Self Care Social History Tobacco Use Types Packs/Day Years Used Date Smoking Tobacco: Former Cigarettes Smokeless Tobacco: Never Comments:Smoked socially for about 2 years while in teens Alcohol Use Standard Drinks/Week Comments Yes 0 (1 standard drink = 0.6 oz pur e alcohol) occ. social drink [facility] Utilities Answer Date Recorded In the [...] and Family Twice a week 05/16/2019 Attends [employer] Services More than 4 times per year [...] and heating? Not hard at all 02/25/2023 [facility] Occup[facility] ional Health - Occupational [...] your living situation today? I have a [facility] place to live 03/04/2024 Education Answer [...] CDT Appointment Department of Cardiovascular Diseases in [place], [place] [address] [place] [address] Derrick Malloy Jr., M.D. [address] [place] [address] Discharge Disposition: Home or Self Care 05/31/2024 2:00 PM CDT Office Visit Department of Cardiovascular Medicine in [place], [place] [address] [place] [address] Derrick Malloy Jr., M.D. [address] [place] [address] documented as of this encounter Procedures Procedure [...] Karine Davidson APRNN.Shelly., M.S.N. LAB BLOOD ADD-ON [address] [address], [facility] 200 [place] [address] * CBC with Differential, Blood (03/08/2024 10:30 [...] Dylon Davidson APRN.N.P., M.S.N. LAB BLOOD ADD-ON [facility] [address] [place] [address], [facility] DTL Formerly [facility] [address] [place] [address] [facility] [address] [place] [address] * Prothrombin Time (PT) (03/08/2024 10:30 AM CDT) [facility] Prothrombin Time, P 10.9 9.4 - 12.5 [...] C.N.P., M.S.N. LAB BLOOD ADD-ON [facility] [address] 200 [place] [address] * Sodium (03/08/2024 10:30 AM CDT) Sodium, S 141 135 - 145 mmol/L 03/08/2024 12:04 PM CDT DTL Blood (Blood, Venous) 03/08/2024 10:30 AM CDT 03/08/2024 11:09 AM CDT Shoshana Araujo APRN, C.N.P., M.S.N. LAB BLOOD ADD-ON Performing Organization Address City/[facility]/ZIP Co de Phone Number [facility] [address] [place] [address] * Potassium (03/08/2024 10:30 AM CDT) Potassium, S 4.6 3.6 - 5.2 mmol/L 03/08/2024 12:04 PM CDT DTL Blood (Blood, Venous) 03/08/2024 10:30 AM CDT 03/08/2024 11:09 AM CDT Shoshana Araujo APRN, C.N.P., M.S.N. LAB BLOOD ADD-ON [facility] [address] [facility] 200 [place] [address] * Glucose, Fasting (03/08/2024 10:30 AM CDT) Glucose, P 87 70 - 100 mg/dL 03/08/2024 11:27 AM CDT DTL Last Intake 17 hr 03/08/2024 11:09 AM CDT DTL Blood (Blood, Venous) 03/08/2024 10:30 AM CDT 03/08/2024 11:09 AM CDT Shoshana Araujo APRN, C.N.P., M.S.N. LAB BLOOD NON ADD-ON [facility] 200 [place] [address], [facility] [address] [place] [address] * Creatinine with Estimated GFR (03/08/2024 10:30 AM CDT) Pathologist [facility] Creatinine 0.78 0.59 - 1.04 mg/dL 03/08/2024 12:04 PM CDT DTL Estimated GFR (eGFR) 77 >=60 mL/min/BSA 03/08/2024 12:04 PM CDT DTL Comment: Estimated GFR calculated using the 2020 CKD_EPI creatinine equation. Blood (Blood, Venous) 03/08/2024 10:30 AM CDT 03/08/2024 11:09 AM CDT Shoshana Araujo APRN, C.N.P., M.S.N. LAB BLOOD ADD-ON [facility] 200 [place] [address], [facility] 200 [place] [address] * Albumin (03/08/2024 10:30 AM CDT) Albumin, S 4.2 3.5 - 5.0 g/dL 03/08/2024 12:04 PM CDT DTL Blood (Blood, Venous) 03/08/2024 10:30 AM CDT 03/08/2024 11:09 AM CDT Shoshana Araujo APRN, C.N.P., M.S.N. LAB BLOOD ADD-ON [facility] [address] [place] [address], [facility] [address] [place] [address] documented in this encounter Visit Diagnoses Diagnosis Replacement Aortic Valve Tissue documented in this encounter
== END 2024-03-27 11:36 | disposition home or self-care (01) ==
LOC: NFLDREF 03-30 11:49
PROVIDERS: PCP Internal Medicine; Referring Provider Internal Medicine; Visit Provider Internal Medicine
DX: I35.0 Nonrheumatic aortic (valve) stenosis (principal); Z79.01 Long term (current) use of anticoagulants
CPT/HCPCS: 85610

== ENCOUNTER 2024-04-10 14:24 | Emergency (ER) | payer MEDICARE, SELFPAY ==
[2024-04-10 14:32] VITALS: BP 143/73; PULSE 83; RESP 18; TEMP 36.5; O2SAT 96; BMI 26.3
--- NOTE | 2024-04-10 14:44 | ED.GENADULT ---
HPI - General Adult General Chief complaint: Unspecified Complaint, Adult Stated complaint: critical INR today Time Seen by Provider: 04/10/24 14:29 History of Present Illness HPI narrative: Patient here with high INR over 5. Drawn at [facility]. No major changes to medication or diet lately. She takes 2.5 mg Tuesday and Tuesday and 5 mg all other days . Noticing some increased bruising and also back and leg pain since Tuesday ( bilateral). 79-year-old woman presenting to the emergency department with concern of critical INR. Does have a history of TAVR. Was discontinued on anticoagulant until year later on follow-up a few months ago with concern of irregular valve movement and possible clot under a valve leaflet with a change in gradient was started on Coumadin. Has had a total of 3-4 INR checked she says. Also had some brown urine and then that seemed to clear and then return of apparent hematuria and then brown again later today. Over the last couple of days has had atraumatic onset of low back pain and pain down both outer legs. No abdominal pain. Has also had easy bruising demonstrating forearms and right thorax. Related Data Home Medications ?Medication ?Instructions ?Recorded ?Confirmed aspirin 81 mg tablet,delayed 81 mg PO QDAY 03/02/22 03/19/24 release (Adult Aspirin Regimen) calcium phos,tribasic 260 mg-D3 25 tab PO .Qda 03/02/22 03/19/24 mcg-herbal 50 mg chewable tablet (Alive Calcium-Vitamin D3) polyethylene glycol 3350 17 g PO DAILY 03/02/22 03/19/24 gram/dose oral powder guar gum .ROUTE 04/10/24 Previous Rx's ?Medication ?Instructions ?Recorded rosuvastatin 5 mg tablet 5 mg PO .Twice Weekly #25 tabs 04/07/23 losartan 50 mg-hydrochlorothiazide 1 tab PO QDAY #90 tabs 05/03/23 12.5 mg tablet metoprolol succinate 25 mg 25 mg PO QDAY #90 tabs 06/21/23 tablet,extended release 24 hr trazodone 50 mg tablet 50 mg PO QDAY PRN Sleep difficulty 11/21/23 #90 tabs clobetasol 0.05 % topical cream 1 applic topical QHS #45 grams 01/23/24 warfarin 5 mg tablet 5 mg PO DAILY #90 tabs 03/13/24 ezetimibe 10 mg tablet 10 mg PO DAILY #90 tabs 04/02/24 Allergies Allergy/AdvReac Type Severity Reaction Status Date / Time Corticosteroids and Allergy Severe chest Uncoded 03/19/24 10:40 derivatives tight and pounding heart Review of Systems Status of ROS: Reports: 6 or more systems reviewed and unremarkable except as noted in History and below PFSH PFS Medical History History of breast cancer ?Z85.3 - Personal history of malignant neoplasm of breast (ICD-10) Surgical History History of aortic valve stenosis ?Z86.79 - Personal history of other diseases of the circulatory system (ICD-10) History of carpal tunnel release of both wrists ?Z98.890 - Other specified postprocedural states (ICD-10) S/P TAVR (transcatheter aortic valve replacement) (~02/2023) ?Z95.2 - Presence of prosthetic heart valve (ICD-10) Hx of BSO (bilateral salpingo-oophorectomy) (06/27/09) ?Z90.79 - Acquired absence of other genital organ(s) (ICD-10) ?Z90.722 - Acquired absence of ovaries, 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) History of lumbar laminectomy ?Z98.890 - Other specified postprocedural states (ICD-10) History of parathyroidectomy ?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) History of oophorectomy History of laminectomy ?Z98.890 - Other specified postprocedural states (ICD-10) History of cholecystectomy ?Z90.49 - Acquired absence of other specified parts of digestive tract (ICD-10) History of breast mammoplasty ?Z98.890 - Other specified postprocedural states (ICD-10) History of bilateral mastectomy ?Z90.13 - Acquired absence of bilateral breasts and nipples (ICD-10) Family History Father High blood pressure Heart disease Other Breast cancer Social History Narrative: does not use illicit drugs non-smoker rarely consumes alcohol What is your current living situation?: I presently have a place to live Problems where you live: no known problems In the past 12 months, utilities in danger of being shut off: no In past 12 months, lack of transportation kept you from medical appts, meetings, work, or getting things needed for daily living: no In the past 12 mos, have been you worried that your food would run out before you had money to buy more?: never true In the past 12 mos, the food you bought just didn't last and you didn't have money to buy more?: never true Smoking Status: Never smoker How often do you have a drink containing alcohol: monthly or less AUDIT-C Alcohol total score: 1 Non-prescribed substance use: denies use How often does anyone, including family, friends and others, physically hurt you: never How often does anyone, including family, friends and others, insult or talk down to you: never How often does anyone, including family, friends and others, threaten you with harm: never How often does anyone, including family, friends and others, scream or curse at you: never Little interest or pleasure in doing things: not at all Feeling down, depressed, or hopeless: not at all Exam Narrative: Exam Narrative: Appears younger than stated age. Pleasant. NAD. Breathing easily. Lungs appear to be clear. Heart in regular rate and rhythm. Abdomen is soft nontender without mass. Sore to palpation in left and right but more left SI joints. Sore also in the area of the left greater trochanter Bruise in the mid right mid axillary line ribs maximal dimension of about 7 cm looks to be 2 days old Some patchy bruising bilateral forearms as well. Const: Vital Signs, click to edit/add: Vital Signs - 24 hr 04/10/24 18:37 Pulse Rate [Pulse Oximeter] 67 Respiratory Rate 18 Blood Pressure [Ri ght Upper Arm] 183/90 H Pulse Oximetry 97 Oxygen Delivery Me thod Room Air Documenting provider has reviewed patient's vital signs: yes Course Vital Signs Vital signs: Initial Vital Signs Temperature 97.7 F 04/10/24 14:32 Temperature Source Temporal Artery Scan 04/10/24 14:32 Pulse Rate 83 04/10/24 14:32 Respiratory Rate 18 04/10/24 14:32 Blood Pressure 143/73 H 04/10/24 14:32 Blood Pressure Mean 96 04/10/24 14:32 Blood Pressure Position Sitting 04/10/24 14:32 Pulse Oximetry 96 04/10/24 14:32 Oxygen Delivery Method Room Air 04/10/24 14:32 Vital Signs Temperature 97.7 F 04/10/24 14:32 Pulse Rate 83 04/10/24 14:32 Respiratory Rate 18 04/10/24 14:32 Blood Pressure 143/73 H 04/10/24 14:32 Pulse Oximetry 96 04/10/24 14:32 Oxygen Delivery Method Room Air 04/10/24 14:32 Temperature 97.7 F 04/10/24 14:32 Pulse Rate 67 04/10/24 18:37 Respiratory Rate 18 04/10/24 18:37 Blood Pressure 183/90 H 04/10/24 18:37 Pulse Oximetry 97 04/10/24 18:37 Oxygen Delivery Method Room Air 04/10/24 18:37 Medications Administered Medications: Discontinued Medications Generic Name Dose Route Start Last Admin Trade Name Freq PRN Reason Stop Dose Admin Sodium Chloride 1,000 mls @ 1,000 mls/hr 04/10/24 16:54 04/10/24 17:29 0.9 % Sodium Chloride 1000 Ml IV 04/10/24 17:53 Infused .Q1H ONE Infusion Medical Decision Making MDM Narrative Medical decision making narrative: In the setting of high INR I think some of concern might be that might be experiencing hematoma internally or vascular dissection perhaps prompting recommendation to present to the emergency department. Otherwise does have pain consistent with sacroiliac joint and iliotibial band/greater trochanter pain. Will recheck labs including INR and renal function, hemoglobin and urinalysis. Arranging for IV contrasted CT of abdomen and pelvis I did review these images. Radiology over-read as below. TECHNIQUE: CT abdomen and pelvis acquired with 74 mL Isovue 370 contrast. COMPARISON: CT abdomen/pelvis dated 06/21/2022. FINDINGS: Lower chest: Stable punctate subpleural pulmonary nodules in the right middle lobe. No focal consolidation. Partially visualized bilateral breast implants. Partially visualized aortic valve replacement. Liver: Stable punctate hypodense lesion in segment 6. No suspicious focal hepatic lesion. Gallbladder and bile ducts: Gallbladder is surgically absent. Prominence of the biliary ducts, likely secondary to postcholecystectomy state. Pancreas: Unremarkable. Spleen: Unremarkable. Splenule is noted. Adrenal glands: Unremarkable. Kidneys: Mildly expansile soft tissue density lesion within the left renal pelvis. Mild urothelial hyperenhancement of the proximal left ureter. No significant hydronephrosis bilaterally. Retroperitoneum: No lymphadenopathy. Bowel and mesentery: Bowel is not obstructed. No significant ascites, no pneumoperitoneum. Scattered colonic diverticulosis, without evidence of acute diverticulitis. Bladder: Unremarkable for degree of distention. Reproductive organs: Probable punctate calcified uterine fibroids. Pelvic lymph nodes: No lymphadenopathy. Vessels: Scattered atherosclerotic calcifications. Abdominal wall: No acute abdominal wall abnormality. Bones: Extensive multilevel degenerative changes of the spine. Bones are osteopenic. IMPRESSION: Mildly expansile soft tissue density within the left renal pelvis, with mild urothelial hyperenhancement of the proximal left ureter. Differentials include blood clot versus urothelial neoplasm, which can not be determined on single phase postcontrast study. A repeat CT abdomen/pelvis without contrast following the complete elimination of contrast is recommended. Please note that all CT scans at this facility use dose modulation, iterative reconstruction, and/or weight-based dosing when appropriate to reduce radiation dose to as low as reasonably achievable. Dictated by Tabatha Mcclellan MD @ 04/10/2024 7:07:31 PM ----- ADDENDUM ----- Report receipt confirmed with Dr. Chavez at 19:10 on 04/10/2024. Dictated by Tabatha Mcclellan MD @ Apr 10 2024 8:15PM (Electronically Signed) For Patients: As a result of the Century Cures Act, medical imaging exams and procedure reports are released immediately into your electronic medical record. You may view this report before your referring provider. If you have questions, please contact your health care provider. INDICATION: Hematuria, lower back and leg pain. TECHNIQUE: CT abdomen and pelvis acquired with 74 mL Isovue 370 contrast. COMPARISON: CT abdomen/pelvis dated 06/21/2022. FINDINGS: Lower chest: Stable punctate subpleural pulmonary nodules in the right middle lobe. No focal consolidation. Partially visualized bilateral breast implants. Partially visualized aortic valve replacement. Liver: Stable punctate hypodense lesion in segment 6. No suspicious focal hepatic lesion. Gallbladder and bile ducts: Gallbladder is surgically absent. Prominence of the biliary ducts, likely secondary to postcholecystectomy state. Pancreas: Unremarkable. Spleen: Unremarkable. Splenule is noted. Adrenal glands: Unremarkable. Kidneys: Mildly expansile soft tissue density lesion within the left renal pelvis. Mild urothelial hyperenhancement of the proximal left ureter. No significant hydronephrosis bilaterally. Retroperitoneum: No lymphadenopathy. Bowel and mesentery: Bowel is not obstructed. No significant ascites, no pneumoperitoneum. Scattered colonic diverticulosis, without evidence of acute diverticulitis. Bladder: Unremarkable for degree of distention. Reproductive organs: Probable punctate calcified uterine fibroids. Pelvic lymph nodes: No lymphadenopathy. Vessels: Scattered atherosclerotic calcifications. Abdominal wall: No acute abdominal wall abnormality. Bones: Extensive multilevel degenerative changes of the spine. Bones are osteopenic. IMPRESSION: Mildly expansile soft tissue density within the left renal pelvis, with mild urothelial hyperenhancement of the proximal left ureter. Differentials include blood clot versus urothelial neoplasm, which can not be determined on single phase postcontrast study. A repeat CT abdomen/pelvis without contrast following the complete elimination of contrast is recommended. Discussed these findings with Mrs. Diaz. Did consider arranging for follow-up CT through the emergency department but follow-up in clinic will be important. I think would be best if can coordinate INR recheck and repeat CT after contrast washout through the clinic. Would like this follow-up in 48-72 hours. See patient discharge plan for further discussion/recommendation Lab Data Lab results reviewed: Yes I reviewed the patient's lab results Labs: Lab Results 04/10/24 04/10/24 Range/Units 15:53 15:58 Hgb 12.9 (12.0-16.0) gm/dL INR 5.39 H* (0.91-1.10) Sodium 137 (135-149) mmol/L Potassium 3.6 (3.6-5.1) mmol/L Chloride 101 (96-114) mmol/L Carbon Dioxide 28 (20-32) mmol/L Anion Gap 8 (7-15) mEq/L BUN 20 (7-30) mg/dL Creatinine 0.6 (0.5-1.5) mg/dL Estimated Creat Clear 41.05 Estimated GFR 91 ml/min Glucose 121 H (60-115) mg/dL Calcium 9.5 (8.4-10.6) mg/dL Magnesium 2.5 (1.5-2.6) mg/dL Total Bilirubin 0.6 (0.1-1.5) mg/dL Direct Bilirubin 0.2 (0.0-0.5) mg/dL AST 46 H (12-35) U/L ALT 33 (4-35) U/L Alkaline Phosphatase 117 (40-150) U/L Total Protein 6.6 (6.0-8.3) g/dL Albumin 4.2 (3.3-5.0) g/dL Urine Color Yellow (Yellow) Urine Appearance Clear (Clear) Urine pH 6.5 (5.0-8.5) Ur Specific Printer 1.010 (1.000-1.030) Urine Protein Negative (Negative) Urine Glucose (UA) Negative (Negative) Urine Ketones Negative (Negative) Urine Blood 2+ A (Negative) Urine Nitrite Negative (Negative) Urine Bilirubin Negative (Negative) Urine Urobilinogen 0.2 (0.2-1.0) Ur Leukocyte Esterase Negative (Negative) Urine RBC 2-5 A (0-2) Urine WBC 2-5 (0-5) Ur Squamous Epith Cells None (None-Few) Urine Bacteria None (None) Discharge Plan Discharge Clinical Impression: Hematuria, Low back pain, Renal lesion, Anticoagulation excessive Patient Disposition: Home w/ Parent or Adult Condition: Stable Instructions: Acute Low Back Pain (ED) Additional Instructions: Please follow-up with your primary care provider/clinic to recheck your INR in 48-72 hours. At that time also I would like you to obtain a repeat noncontrast CT scan of your abdomen pelvis as recommended by radiology to better characterize this left kidney. I would expect further recommendations to follow that read. Hold your Coumadin until re-evaluation. Return otherwise for marked increase in bleeding, marked increase in pain, associated fever, persistent and increasing abdominal pain. It appears that you otherwise have some low back pain that may or may not be related to what ever process is going on in your abdomen. You do have some tenderness in the area of the sacroiliac joints. You also have some tenderness in particular around the left greater trochanter. This can happen spontaneously i.e. without injury. Irritation around the greater trochanter can represent iliotibial band syndrome. I have included some handouts on trochanteric bursitis and sacral iliac joint pain that you can use for exercises ahead of re-evaluation. Activity Level: No Restrictions Discharge Diet: Regular Prescriptions: No Action clobetasol 0.05 % cream 1 applic topical QHS Qty: 45 0RF Rx Instructions: apply small amount to area nightly x 2 weeks, then twice weekly polyethylene glycol 3350 17 gram/dose powder PO DAILY Alive Calcium-Vitamin D3 260 mg calcium- 25 mcg-50 mg tablet,chewable PO .Qda aspirin [Adult Aspirin Regimen] 81 mg tablet,delayed release (DR/EC) 81 mg PO QDAY warfarin 5 mg tablet 5 mg PO DAILY Qty: 90 1RF Protocol: Dose Management Condition: Tuesday Dose/Route: 5 mg Instruction: 1 x 5 mg tablet Condition: Tuesday Dose/Route: 2.5 mg Instruction: 0.5 x 5 mg tablets Condition: Tuesday Dose/Route: 5 mg Instruction: 1 x 5 mg tablet Condition: Tuesday Dose/Route: 2.5 mg Instruction: 0.5 x 5 mg tablets Condition: Dose/Route: 5 mg Instruction: 1 x 5 mg tablet Condition: Tuesday Dose/Route: 2.5 mg Instruction: 0.5 x 5 mg tablets Condition: Tuesday Dose/Route: 5 mg Instruction: 1 x 5 mg tablet Protocol Text: Adjustment Start Date: Tuesday03/27/24 INR Value: 3.83 INR Date: 03/27/24 Recheck Date: 04/10/24 guar gum [Benefiber (guar gum)] .ROUTE rosuvastatin 5 mg tablet 5 mg PO .Twice Weekly Qty: 25 4RF losartan-hydrochlorothiazide 50-12.5 mg tablet 1 tab PO QDAY Qty: 90 4RF metoprolol succinate 25 mg tablet extended release 24 hr 25 mg PO QDAY Qty: 90 3RF trazodone 50 mg tablet 50 mg PO QDAY PRN (Reason: Sleep difficulty) Qty: 90 0RF Rx Instructions: once nightly as needed for sleep ezetimibe 10 mg tablet 10 mg PO DAILY Qty: 90 3RF Follow Up/Referrals: Pam Kendrick MD [Primary Care Provider] - Stand Alone Forms: PreApps Info Instructions
--- NOTE | 2024-04-10 15:23 | CRLHL7_ITS ---
For Patients: As a result of the Century Cures Act, medical imaging exams and procedure reports are released immediately into your electronic medical record. You may view this report before your referring provider. If you have questions, please contact your health care provider. INDICATION: Hematuria, lower back and leg pain. TECHNIQUE: CT abdomen and pelvis acquired with 74 mL Isovue 370 contrast. COMPARISON: CT abdomen/pelvis dated 06/21/2022. FINDINGS: Lower chest: Stable punctate subpleural pulmonary nodules in the right middle lobe. No focal consolidation. Partially visualized bilateral breast implants. Partially visualized aortic valve replacement. Liver: Stable punctate hypodense lesion in segment 6. No suspicious focal hepatic lesion. Gallbladder and bile ducts: Gallbladder is surgically absent. Prominence of the biliary ducts, likely secondary to postcholecystectomy state. Pancreas: Unremarkable. Spleen: Unremarkable. Splenule is noted. Adrenal glands: Unremarkable. Kidneys: Mildly expansile soft tissue density lesion within the left renal pelvis. Mild urothelial hyperenhancement of the proximal left ureter. No significant hydronephrosis bilaterally. Retroperitoneum: No lymphadenopathy. Bowel and mesentery: Bowel is not obstructed. No significant ascites, no pneumoperitoneum. Scattered colonic diverticulosis, without evidence of acute diverticulitis. Bladder: Unremarkable for degree of distention. Reproductive organs: Probable punctate calcified uterine fibroids. Pelvic lymph nodes: No lymphadenopathy. Vessels: Scattered atherosclerotic calcifications. Abdominal wall: No acute abdominal wall abnormality. Bones: Extensive multilevel degenerative changes of the spine. Bones are osteopenic. IMPRESSION: Mildly expansile soft tissue density within the left renal pelvis, with mild urothelial hyperenhancement of the proximal left ureter. Differentials include blood clot versus urothelial neoplasm, which can not be determined on single phase postcontrast study. A repeat CT abdomen/pelvis without contrast following the complete elimination of contrast is recommended. Please note that all CT scans at this facility use dose modulation, iterative reconstruction, and/or weight-based dosing when appropriate to reduce radiation dose to as low as reasonably achievable. Dictated by Tabatha Mcclellan MD @ 04/10/2024 7:07:31 PM (Electronically Signed)
[2024-04-10 15:59] LABS: Hemoglobin* 12.9 gm/dL (12.0-16.0)
[2024-04-10 16:19] LABS: Appearance Urine Clear (Clear); Bilirubin Urine Negative (Negative); Blood Urine 2+ (Negative); Color Urine Yellow (Yellow); Glucose Urine Negative (Negative); Ketones Urine Negative (Negative); Leukocyte Esterase Urine Negative (Negative); Nitrite Urine Negative (Negative); Protein Urine Negative (Negative); Urobilinogen Urine 0.2 (0.2-1.0); pH Urine 6.5 (5.0-8.5)
[2024-04-10 16:38] LABS: Albumin* 4.2 g/dL (3.3-5.0)
[2024-04-10 16:41] LABS: Alanine Aminotransferase* 33 U/L (4-35); Alkaline Phosphatase* 117 U/L (40-150); Aspartate Amino Transferase* 46 U/L (12-35); Bilirubin Direct* 0.2 mg/dL (0.0-0.5); Bilirubin Total* 0.6 mg/dL (0.1-1.5); Magnesium* 2.5 mg/dL (1.5-2.6); Total Protein* 6.6 g/dL (6.0-8.3)
[2024-04-10] MEDS: 0.9 % SODIUM CHLORIDE 1000 ml 1,000 ML IV (17:03)
[2024-04-10 17:10] LABS: Chloride* 101 mmol/L (96-114); Potassium* 3.6 mmol/L (3.6-5.1); Sodium* 137 mmol/L (135-149)
[2024-04-10 17:12] LABS: Creatinine* 0.6 mg/dL (0.5-1.5); Est. Creatinine Clearance* 41.05; Estimated Glomerular Filt Rate 91 ml/min
[2024-04-10 17:13] LABS: Anion Gap 8 mEq/L (7-15); Blood Urea Nitrogen* 20 mg/dL (7-30); Calcium* 9.5 mg/dL (8.4-10.6); Carbon Dioxide* 28 mmol/L (20-32); Glucose* 121 mg/dL (60-115)
[2024-04-10 17:14] LABS: Prothrombin Time 53.7 Seconds
[2024-04-10 17:15] LABS: INR 5.39 (0.91-1.10)
[2024-04-10 18:37] VITALS: BP 183/90; PULSE 67; RESP 18; O2SAT 97
== END 2024-04-10 20:41 | disposition home or self-care (01) ==
PROVIDERS: Emergency Provider Family Medicine; PCP Internal Medicine
DX: R31.9 Hematuria, unspecified (principal); M54.50 Low back pain, unspecified; Z79.01 Long term (current) use of anticoagulants
CPT/HCPCS: 36415; 74177; 80048; 80076; 81001; 83735; 85018; 85610; 99284; J7030; Q9967

== ENCOUNTER 2024-04-13 08:13 | Outpatient (CLI) | payer MEDICARE, SELFPAY ==
--- OUTSIDE RECORDS SUMMARY | 2024-04-13 08:16 | XMS_ITS | Encounter Summary ---
Author Organization [facility] Address [address] [place] [id number] Care Team Providers Care Steno Typist Name Role Phone Unavailable Primary Care Provider Unavailabl e Reason for Visit * Reason Onset Date Comments Appt Request 03/13/2024 Encounter Details Date Type Department Care Team (Latest Contact Info) Description 03/13/2024 Clinical Communication Department of Cardiovascular Medicine in [place], [place] [address] [place] [id number] Derrick Malloy Jr., M.D. [address] [place] [id number] Appt Request Social History Tobacco Use Types [...] and heating? Not hard at all 02/25/2023 [facility] Questionnaire [...] your living situation today? I have a [facility] place to live 03/04/2024 Education Answer [...] CDT Appointment Department of Cardiovascular Diseases in [place], [place] [address] [place] [address] Derrick Malloy Jr., M.D. [address] [place] [address] Discharge Disposition: Home or Self Care 05/31/2024 2:00 PM CDT Office Visit Department of Cardiovascular Medicine in [place], [place] [address] [place] [address] Derrick Malloy Jr., M.D. [address] [place] [address] documented as of this encounter Visit Diagnoses Not on filedocumented in this encounter
--- OUTSIDE RECORDS SUMMARY | 2024-04-13 08:16 | XMS_ITS | Referral Summary ---
Author Organization [facility] Address [address] [place] [address] Care Team Providers Care Platen Press Operator Apprentice Name Role Phone Unavailable Primary Care Provider Unavailabl e Source Comments Patient records contain information from all sites at [facility]. For routine questions regarding patient records, call [phone] during business hours, M-F 8:00 AM - 5:00 PM Central Time. Record requests for emergency care only can be directed to [phone] at any time.[facility] Encounters Date Type Department Care Team Description 03/13/2024 Clinical Communication Department of Cardiovascular Medicine in [place], [place] [address] [place] [address] Derrick Malloy Jr., M.D. Appt Request 03/12/2024 Clinical Communication Department of Cardiovascular Medicine in [place], [place] [address] [place] [address] Derrick Malloy Jr., M.D. 03/12/2024 Documentation Department of Cardiovascular Medicine in [place], [place] [address] [place] [phone] Derrick Malloy Jr., M.D. 03/09/2024 Clinical Communication Department of Cardiovascular Medicine in [place], [place] [address] [place] [address] Derrick Malloy Jr., M.D. Return Call Request (Dr. Kendrick from [place] is out of the office until Tuesday.) 03/08/2024 9:53 AM CDT - 03/08/2024 12:10 PM CDT Hospital Encounter Department of Laboratory Medicine and Pathology, [facility] in [place], [place] [address] [place] [phone] Shoshana Araujo APRN, C.NGilmar, M.S.N. Replacement Aortic Valve Tissue Discharge Disposition: Home or Self Care 03/08/2024 12:11 PM CDT - 03/08/2024 11:59 PM CDT Hospital Encounter Department of Cardiovascular Diseases in [place], [place] [address] [place] [phone] Shoshana Araujo APRN, C.N.P., M.S.N. Replacement Aortic Valve Tissue Discharge Disposition: Home or Self Care 03/08/2024 8:39 AM CDT - 03/08/2024 9:52 AM CDT Hospital Encounter Department of Radiology, [facility] in [place], [place] [address] [place] [phone] Shoshana Araujo APRN, C.NRamon., M.S.N. Replacement Aortic Valve Tissue Discharge Disposition: Home or Self Care 03/08/2024 4:00 PM CDT Office Visit Department of Cardiovascular Medicine in [address] [phone] Derrick Malloy Jr., M.D. Stenosis Aortic Valve Acquired (Primary Dx); Prosthesis Aortic Valve; Hypertension Essential Primary; Hyperlipidemia On Treatment; Cancer Breast Personal History 03/06/2024 9:30 AM CDT Clinical Communication Virtual Review in [place], [place] 200 [place] [address] Previsit Preparation from Last 3 Months Allergies [...] Treatment 04/29/2022 Atherosclerotic Heart Diseas e Of [place] Coronary Artery Without Angina Pectoris 04/29/2022 Hypertension Essential Primary 04/29/2022 Assessment & Plan (04/29/2022 1:41 PM CDT): Mrs. Diaz is a very pleasant 77-year-old female who was seen in the [facility] for a 1 year follow up of aortic stenosis. She has been doing well over the past year from a heart standpoint. She denies any new cardiopulmonary symptoms today. She continues to be very physically active with walking 2 days a week, playing [employer] ball 1 day a week, and golfing [...] pur e alcohol) occ. social drink [facility] Utilities Answer Date Recorded In the past 12 months has e [employer], gas, oil, or water [employer] threatened to shut off services in your [...] and Family Twice a week 05/16/2019 Attends Scientology Services More than 4 times per year [...] and heating? Not hard at all 02/25/2023 [facility] of Occupat ional Health - Occupational Stress [...] your living situation today? I have a [facility] place to live 03/04/2024 Education Answer [...] CDT Appointment Department of Cardiovascular Diseases in [place], [place] 200 [place] [phone] Derrick Malloy Jr., M.D. 200 [place] [phone] Discharge Disposition: Home or Self Care 05/31/2024 2:00 PM CDT Office Visit Department of Cardiovascular Medicine in [place], [place] [address] [place] [address] Derrick Malloy Jr., M.D. [address] [place] [address] Medical Devices Implanted Type Area Exhaust Machine Operator Device Identifier Shelf Expiration Date Model / Serial / Lot Breast Implant Breast Implant Bilateral : Breast Vlv Dayan S3 Ultra 23 - [id number] - [id number] Implanted:Qty : 1 on 03/07/2023 by Carrington Castillo M.D., Ph.D. at [facility] Cardiac Valve Prosthesis N/A: Heart [employer] 06/16/2025 [id number] / [id number] / Description:Aortic Valve Ocular Lens Ocular Lens [...] ECHO DOPPLER COLOR (03/08/2024 1:42 PM CDT) [facility] Ejection Fraction 71 MC CV [...] Araujo APRN, C.N.P., M.S.N. [place] [address], [facility] [place] [address] * Prothrombin Time (PT) (03/08/2024 10:30 AM [...] APRNN.P., M.S.N. LAB BLOOD ADD-ON [facility] [address] [place] [address], [facility] DTL [facility] [address] [place] [address] * CBC with Differential, Blood (03/08/2024 10:30 [...] Araujo APRN, C.N.P., M.S.N. LAB BLOOD ADD-ON [facility] 200 [place] [address], [facility] 200 [place] [address] [facility] 200 [place] [address] * Sodium (03/08/2024 10:30 AM CDT) Sodium, S 141 135 - 145 mmol/L 03/08/2024 12:04 PM CDT DTL Blood (Blood, Venous) 03/08/2024 10:30 AM CDT 03/08/2024 11:09 AM CDT Shoshana Araujo APRN, C.N.P., M.S.N. LAB BLOOD ADD-ON [facility] [address] [place] [address], [facility] 200 [place] [address] * Potassium (03/08/2024 10:30 AM CDT) Potassium, S 4.6 3.6 - 5.2 mmol/L 03/08/2024 12:04 PM CDT DTL Blood (Blood, Venous) 03/08/2024 10:30 AM CDT 03/08/2024 11:09 AM CDT Shoshana Araujo APRN, C.N.P., M.S.N. LAB BLOOD ADD-ON [facility] [address] [place] [address], [facility] 200 [place] [address] * Glucose, Fasting (03/08/2024 10:30 AM CDT) Glucose, P 87 70 - 100 mg/dL 03/08/2024 11:27 AM CDT DTL Last Intake 17 hr 03/08/2024 11:09 AM CDT DTL Blood (Blood, Venous) 03/08/2024 10:30 AM CDT 03/08/2024 11:09 AM CDT Shoshana Araujo APRN, C.N.P., M.S.N. LAB BLOOD NON ADD-ON Performing Organization Address City/[facility] Co de Phone Number [facility] 200 [place] [address], [facility] 200 [place] [address] * Creatinine with Estimated GFR (03/08/2024 10:30 AM CDT) Creatinine 0.78 0.59 - 1.04 mg/dL 03/08/2024 12:04 PM CDT DTL Estimated GFR (eGFR) 77 >=60 mL/min/BSA 03/08/2024 12:04 PM CDT DTL Comment: Estimated GFR calculated using the 2020 CKD_EPI creatinine equation. Blood (Blood, Venous) 03/08/2024 10:30 AM CDT 03/08/2024 11:09 AM CDT Shoshana Araujo APRN, C.N.P., M.S.N. LAB BLOOD ADD-ON [facility] [address] [place] [address], [facility] 200 [place] [address] * Albumin (03/08/2024 10:30 AM CDT) Albumin, S 4.2 3.5 - 5.0 g/dL 03/08/2024 12:04 PM CDT DTL Blood (Blood, Venous) 03/08/2024 10:30 AM CDT 03/08/2024 11:09 AM CDT Shoshana Araujo APRN, C.N.P., M.S.N. LAB BLOOD ADD-ON Performing Organization Address City/[facility]/ZIP Co de Phone Number [facility] [address] [place] [address], [place] DTL [facility] [address] [place] [address] * ECG 12 Lead (03/08/2024 9:07 AM CDT) Ventricular Rate ECG/Min 62 BPM MUSE [place] Interval 192 ms MUSE QRSD Interval 78 ms MUSE QT Interval 418 ms MUSE QTC Interval 424 ms MUSE P [place] 24 degrees MUSE R [place] -5 degrees MUSE T Wave [place] 50 degrees MUSE 03/08/2024 9:07 AM CDT [...] C.N.P., M.S.N. ECG ORDERABLES Performing Organization Address City/[facility]/ZIP Co de Phone Number MUSE NA * [...] of the ascending thoracic aorta, 40 mm (mfhj-bk-itwp double oblique and series 1000). Postoperative changes [...] dilatation of the ascending thoracic aorta, 40 mm(nfim-je-qxfk double oblique and series 1000). Postoperative changes [...] Advance Directives For more information, please contact: [phone] * Full Code (Latest Code Status on File) Date Activated Date Inactivated Comments 03/07/2023 11:55 AM 03/08/2023 1:14 PM Question Answer Comments Full Code: Discussed
--- OUTSIDE RECORDS SUMMARY | 2024-04-13 08:16 | XMS_ITS | Referral Summary ---
Author Organization [facility] Address [address] [place] [address] Care Team Providers Care Forestry Fire Aid Name Role Phone Claudia Ren PA-C Primary [...] Recently Relevant to Health Maintenance Care Teams Forestry Fire Aid Relationship Specialty Start Date End Date Claudia Ren PA-C [facility] [address] [place] [address] PCP - General Physician Sheriff'S Sergeant 03/15/23
--- OUTSIDE RECORDS SUMMARY | 2024-04-13 08:16 | XMS_ITS | Clinical Summary ---
Author Organization [facility] Address [address] [place] [address] Care Team Providers Care Pulpwood Contractor Name Role Phone Unavailable Primary Care Provider Unavailabl e Source Comments Patient records contain information from all sites at [facility]. For routine questions regarding patient records, call [phone] during business hours, M-F 8:00 AM - 5:00 PM Central Time. Record requests for emergency care only can be directed to [phone] at any time.[facility] Allergies [...] Treatment 04/29/2022 Atherosclerotic Heart Diseas e Of [place] Coronary Artery Without Angina Pectoris 04/29/2022 Hypertension Essential Primary 04/29/2022 Assessment & Plan (04/29/2022 1:41 PM CDT): Mrs. Diaz is a very pleasant 77-year-old female who was seen in the [facility] for a 1 year follow up of aortic stenosis. She has been doing well over the past year from a heart standpoint. She denies any new cardiopulmonary symptoms today. She continues to be very physically active with walking 2 days a week, playing [employer] ball 1 day a week, and golfing [...] Clinical Communication Department of Cardiovascular Medicine in [place], [place] [address] [place] [address] Derrick Malloy Jr., M.D. Appt Request 03/12/2024 Clinical Communication Department of Cardiovascular Medicine in [place], [place] [address] [place] [address] Derrick Malloy Jr., M.D. 03/12/2024 Documentation Department of Cardiovascular Medicine in [place], [place] [address] [place] [phone] Derrick Malloy Jr., M.D. 03/09/2024 Clinical Communication Department of Cardiovascular Medicine in [place], [place] [address] [place] [phone] Derrick Malloy Jr., M.D. Return Call Request (Dr. Kendrick from [place] is out of the office until Tuesday.) 03/08/2024 4:00 PM CDT Office Visit Department of Cardiovascular Medicine in [place], [place] [address] [place] [address] Derrick Malloy Jr., M.D. Stenosis Aortic Valve Acquired (Primary Dx); Prosthesis Aortic Valve; Hypertension Essential Primary; Hyperlipidemia On Treatment; Cancer Breast Personal History 03/08/2024 12:11 PM CDT - 03/08/2024 11:59 PM CDT Hospital Encounter Department of Cardiovascular Diseases in [place], [place] [address] [place] [phone] Shoshana Araujo APRN, C.N.P., M.S.N. Replacement Aortic Valve Tissue Discharge Disposition: Home or Self Care 03/08/2024 9:53 AM CDT - 03/08/2024 12:10 PM CDT Hospital Encounter Department of Laboratory Medicine and Pathology, [facility] in [place], [place] [address] [place] [phone] Shoshana Araujo APRN, C.N.P., M.S.N. Replacement Aortic Valve Tissue Discharge Disposition: Home or Self Care 03/08/2024 8:39 AM CDT - 03/08/2024 9:52 AM CDT Hospital Encounter Department of Radiology, [facility] in [place], [place] [address] [place] [phone] Shoshana Araujo APRN, C.N.P., M.S.N. Replacement Aortic Valve Tissue Discharge Disposition: Home or Self Care 03/06/2024 9:30 AM CDT Clinical Communication Virtual Review in [place], [place] 200 [place] [address] Previsit Preparation from Last 3 Months Immunizations [...] oz pur e alcohol) occ. social drink [facility] Utilities Answer Date Recorded In the past 12 months has e [employer], gas, oil, or water [employer] threatened to shut off services in your [...] and Family Twice a week 05/16/2019 Attends Anabaptist Services More than 4 times per year [...] and heating? Not hard at all 02/25/2023 [facility] of Occupat ional Health - [...] your living situation today? I have a [facility] place to live 03/04/2024 Education Answer [...] CDT Appointment Department of Cardiovascular Diseases in [place], [place] 200 [place] [phone] Derrick Malloy Jr., M.D. 200 [place] [phone] Discharge Disposition: Home or Self Care 05/31/2024 2:00 PM CDT Office Visit Department of Cardiovascular Medicine in [place], [place] [address] [place] [address] Derrick Malloy Jr., M.D. [address] [place] [address] Health Maintenance Due Date Last Done Comments [...] Completed 03/08/2024 Medical Devices Implanted Type Area School Commissioner Device Identifier Shelf Expiration Date Model / Serial / Lot Breast Implant Breast Implant Bilateral : Breast Vlv Dayan S3 Ultra 23 - [id number] - [id number] Implanted:Qty : 1 on 03/07/2023 by Carrington Castillo M.D., Ph.D. at [facility] Cardiac Valve Prosthesis N/A: Heart [employer] 06/16/2025 [id number] / [id number] / Description:Aortic Valve Ocular Lens Ocular Lens [...] M.S.N. LAB BLOOD ADD-ON Performing Organization Address [facility] Co de Phone Number [facility] [address] [facility] 200 [place] [address] * Prothrombin Time (PT) (03/08/2024 10:30 AM CDT) Pathologist [facility] Prothrombin Time, P 10.9 9.4 - 12.5 [...] M.S.N. LAB BLOOD ADD-ON Performing Organization Address City/[facility] Co de Phone Number [facility] 200 [place] [address], [facility] 200 [place] [address] * CBC with Differential, Blood (03/08/2024 10:30 [...] C.N.P., M.S.N. LAB BLOOD ADD-ON [facility] [address] [place] [address], [facility] DTL [facility] [address] [place] [address] [facility] [address] [place] [address] * Sodium (03/08/2024 10:30 AM CDT) [facility] Signature Sodium, S 141 135 - 145 mmol/L 03/08/2024 12:04 PM CDT DTL Blood (Blood, Venous) 03/08/2024 10:30 AM CDT 03/08/2024 11:09 AM CDT Shoshana Araujo APRN, C.N.P., M.S.N. LAB BLOOD ADD-ON [facility] [address] [place] [address] * Potassium (03/08/2024 10:30 AM CDT) Potassium, S 4.6 3.6 - 5.2 mmol/L 03/08/2024 12:04 PM CDT DT Blood (Blood, Venous) 03/08/2024 10:30 AM CDT 03/08/2024 11:09 AM CDT Shoshana Araujo APRN, C.N.P., M.S.N. LAB BLOOD ADD-ON Performing Organization Address City/[facility] Co de Phone Number [facility] [address] [place] [address] * Glucose, Fasting (03/08/2024 10:30 AM CDT) Glucose, P 87 70 - 100 mg/dL 03/08/2024 11:27 AM CDT DTL Last Intake 17 hr 03/08/2024 11:09 AM CDT DT Blood (Blood, Venous) 03/08/2024 10:30 AM CDT 03/08/2024 11:09 AM CDT Shoshana Araujo APRN, C.N.P., M.S.N. LAB BLOOD NON ADD-ON [facility] [address] [place] 200 [place] [address] * Creatinine with Estimated GFR (03/08/2024 10:30 AM CDT) Pathologist [facility] Creatinine 0.78 0.59 - 1.04 mg/dL 03/08/2024 12:04 PM CDT DT Estimated GFR (eGFR) 77 >=60 mL/min/BSA 03/08/2024 12:04 PM CDT DT Comment: Estimated GFR calculated using the 2020 CKD_EPI creatinine equation. Blood (Blood, Venous) 03/08/2024 10:30 AM CDT 03/08/2024 11:09 AM CDT Shoshana Araujo APRN, C.N.P., M.S.N. LAB BLOOD ADD-ON [facility] 200 [place], [place] [address] 200 [place] [address] * Albumin (03/08/2024 10:30 AM CDT) Pathologist [facility] Albumin, S 4.2 3.5 - 5.0 g/dL 03/08/2024 12:04 PM CDT DT Blood (Blood, Venous) 03/08/2024 10:30 AM CDT 03/08/2024 11:09 AM CDT Shoshana Araujo APRN, C.N.P., M.S.N. LAB BLOOD ADD-ON [facility] [address] [place], [place] [address] [place] [address] * ECG 12 Lead (03/08/2024 9:07 AM CDT) Pathologist [facility] Ventricular Rate ECG/Min 62 BPM MUSE [place] Interval 192 ms MUSE QRSD Interval 78 ms MUSE QT Interval 418 ms MUSE QTC Interval 424 ms MUSE P [place] 24 degrees MUSE R [place] -5 degrees MUSE T Wave [place] 50 degrees MUSE 03/08/2024 9:07 AM CDT [...] of the ascending thoracic aorta, 40 mm (gdfo-lm-hfgt double oblique and series 1000). Postoperative changes [...] dilatation of the ascending thoracic aorta, 40 mm(ocqs-eo-lgyx double oblique and series 1000). Postoperative changes [...] Advance Directives For more information, please contact: [phone] * Full Code (Latest Code Status on File) Date Activated Date Inactivated Comments 03/07/2023 11:55 AM 03/08/2023 1:14 PM Question Answer Comments Full Code: Discussed
--- OUTSIDE RECORDS SUMMARY | 2024-04-13 08:16 | XMS_ITS ---
Author Organization [facility] Address [address] [place] [address] Care Team Providers Care Director Workforce Management Name Role Phone Unavailable Unavailable Unavailable Surgery Details Not on file Complications Check Surgery Details section. Procedure Estimated Blood Loss Check Surgery Details section. Procedure Findings Check Surgery Details section. Procedure Specimens Taken Check Surgery Details section.
--- OUTSIDE RECORDS SUMMARY | 2024-04-13 08:16 | XMS_ITS | Clinical Summary ---
Author Organization [facility] Address [address] [place] [address] Care Team Providers Care Infection Prevention Practitioner Name Role Phone Claudia Ren PA-C Primary [...] C SCREENING 1963 LIPID 1985 RSV VACCINE (1 - 1-dose 60+ series) 2005 GLUCOSE [...] Recently Relevant to Health Maintenance Care Teams Infection Prevention Practitioner Relationship Specialty Start Date End Date Claudia Ren PA-C [facility] [address] [place] [address] PCP - General Physician Canal Structure Operator 03/15/23
--- OUTSIDE RECORDS SUMMARY | 2024-04-13 08:17 | XMS_ITS | Encounter Summary ---
Author Organization [facility] Address 200 [place] [address] Care Team Providers Care Residential Builder Name Role Phone Unavailable Primary Care Provider Unavailabl e Reason for Referral * Cardiovascular-Diagnostic (Routine) - Authorized Specialty Diagnoses / Procedures Referred By Contac t Referred To Contact Diagnoses Stenosis Aortic Valve Acquired Prosthesis Aortic Valve Procedures Echo Transthoracic (TTE) - Complex Valvular Heart Disease Derrick Malloy Jr., M.D. 200 [place] [address] [facility] Referral ID Status Reason Start Date Expiration Date V isits Requested Visits Authorized [id number] Authorized 03/12/2024 03/12/2025 1 1 Encounter Details Date Type Department Care Team (Latest Contact Info) Description 03/12/2024 Clinical Communication Department of Cardiovascular Medicine in [place], [place] [address] [place] [address] Derrick Malloy Jr., M.D. [address] [place] [phone] Social History Tobacco Use Types Packs/Day Years Used Date Smoking Tobacco: Former Cigarettes Smokeless Tobacco: Never Comments:Smoked socially for about 2 years while in teens Alcohol Use Standard Drinks/Week Comments Yes 0 (1 standard drink = 0.6 oz pur e alcohol) occ. social drink [facility] Utilities Answer Date Recorded [...] and Family Twice a week 05/16/2019 Attends Sabianist Services More than 4 times per year [...] and heating? Not hard at all 02/25/2023 [facility] of Occupat ional Health - Occupational Stress [...] your living situation today? I have a [facility] place to live 03/04/2024 Education [...] CDT Appointment Department of Cardiovascular Diseases in [place], [place] 200 [place] [address] Derrick Malloy Jr., M.D. 200 [place] [address] Discharge Disposition: Home or Self Care 05/31/2024 2:00 PM CDT Office Visit Department of Cardiovascular Medicine in [place], [place] [address] [place] [address] Derrick Malloy Jr., M.D. [address] [place] [address] Scheduled Orders Name Type Priority Associated Diagnoses Order Schedule Echo Transthoracic (TTE) - Complex Valvular Heart Disease Echocardiography Routine Stenosis Aortic Valve Acquired Prosthesis Aortic Valve Expected: 06/12/2024, Expires: 06/12/2025 documented as of this encounter Visit Diagnoses Diagnosis Stenosis Aortic Valve Acquired- Primary Prosthesis Aortic Valve documented in this encounter
--- OUTSIDE RECORDS SUMMARY | 2024-04-13 08:17 | XMS_ITS | Clinical Summary ---
Author Organization [facility] Address [place], [place] [address] Care Team Providers Care Manager Hris Name Role Phone Claudia Ren PA-C Primary Care Provider [phone] Allergies Active Allergy Reactions Criticality Noted Date [...] stenosis 04/29/2022 Atherosclerotic heart diseas e of [place] coronary artery without angina pectoris 04/29/2022 Primary hypertension 04/29/2022 Overview: Last Assessment & Plan: Mrs. Diaz is a very pleasant 77-year-old female who was seen in the [facility] for a 1 year follow up of aortic stenosis. She has been doing well over the past year from a heart standpoint. She denies any new cardiopulmonary symptoms today. She continues to be very physically active with walking 2 days a week, playing [employer] ball 1 day a week, and golfing [...] Comments Blood Pressure 134/82 07/01/2022 3:35 PM SYNCHRO ASSEMBLER Pulse 76 07/01/2022 3:35 PM SYNCHRO ASSEMBLER Temperature - - Respiratory Rate 16 06/22/2022 3:59 PM SYNCHRO ASSEMBLER Oxygen Saturation 97% 07/01/2022 3:35 PM SYNCHRO ASSEMBLER Inhaled Oxygen Concentration - - Weight 70.8 kg (156 lb) 07/01/2022 3:35 PM SYNCHRO ASSEMBLER Height 165.1 cm (5' 5) 07/01/2022 3:35 PM SYNCHRO ASSEMBLER Body Mass Index 25.96 07/01/2022 3:35 PM SYNCHRO ASSEMBLER Plan of Treatment Health Maintenance Due Date [...] Influenza for age 65+ 04/15/2024 Care Teams Manager Hris Relationship Specialty Start Date End Date Claudia Ren PA-C [address] [place] [address] PCP - General Emergency Medicine 06/11/22
--- OUTSIDE RECORDS SUMMARY | 2024-04-13 08:17 | XMS_ITS | Encounter Summary ---
Author Organization [facility] Address [address] [place] [address] Care Team Providers Care Traffic Investigator Name Role Phone Unavailable Primary Care Provider Unavailabl e Encounter Details Date Type Department Care Team (Latest Contact Info) Description 03/08/2024 9:53 AM CDT - 03/08/2024 12:10 PM CDT Hospital Encounter Department of Laboratory Medicine and Pathology, [facility], in [place], [place] [address] [place] [phone] Shoshana Araujo, EDA, C.N.P., M.S.N. [address] [place] [phone] Replacement Aortic Valve Tissue Discharge Disposition: Home or Self Care Social History Tobacco Use Types Packs/Day Years Used Date Smoking Tobacco: Former Cigarettes Smokeless Tobacco: Never Comments:Smoked socially for about 2 years while in teens Alcohol Use Standard Drinks/Week Comments Yes 0 (1 standard drink = 0.6 oz pur e alcohol) occ. social drink [facility] Utilities Answer Date Recorded In the [...] and heating? Not hard at all 02/25/2023 [facility] of Occupat ional Health - Occupational [...] your living situation today? I have a [facility] place to live 03/04/2024 Education [...] CDT Appointment Department of Cardiovascular Diseases in [place], [place] [address] [place] [address] Derrick Malloy Jr., M.D. [address] [place] [address] Discharge Disposition: Home or Self Care 05/31/2024 2:00 PM CDT Office Visit Department of Cardiovascular Medicine in [place], [place] [address] [place] [address] Derrick Malloy Jr., M.D. [address] [place] [address] documented as of this encounter Procedures Procedure [...] Karine Davidson APRNN.Shelly., M.S.N. LAB BLOOD ADD-ON [address] [address], [facility] 200 [place] [address] * CBC with Differential, Blood (03/08/2024 10:30 [...] Dylon Davidson APRN.N.P., M.S.N. LAB BLOOD ADD-ON [facility] [address] [place] [address], [facility] DTL [facility] [address] [place] [address] [facility] [address] [place] [address] * Prothrombin Time (PT) (03/08/2024 10:30 AM CDT) [facility] Prothrombin Time, P 10.9 9.4 - 12.5 [...] C.N.P., M.S.N. LAB BLOOD ADD-ON [facility] [address] 200 [place] [address] * Sodium (03/08/2024 10:30 AM CDT) Sodium, S 141 135 - 145 mmol/L 03/08/2024 12:04 PM CDT DTL Blood (Blood, Venous) 03/08/2024 10:30 AM CDT 03/08/2024 11:09 AM CDT Shoshana Araujo APRN, C.N.P., M.S.N. LAB BLOOD ADD-ON Performing Organization Address City/[facility]/ZIP Co de Phone Number [facility] [address] 200 [place] [address] * Potassium (03/08/2024 10:30 AM CDT) Potassium, S 4.6 3.6 - 5.2 mmol/L 03/08/2024 12:04 PM CDT DTL Blood (Blood, Venous) 03/08/2024 10:30 AM CDT 03/08/2024 11:09 AM CDT Shoshana Araujo APRN, C.N.P., M.S.N. LAB BLOOD ADD-ON [facility] [address] [facility] 200 [place] [address] * Glucose, Fasting (03/08/2024 10:30 AM CDT) Glucose, P 87 70 - 100 mg/dL 03/08/2024 11:27 AM CDT DTL Last Intake 17 hr 03/08/2024 11:09 AM CDT DTL Blood (Blood, Venous) 03/08/2024 10:30 AM CDT 03/08/2024 11:09 AM CDT Shoshana Araujo APRN, C.N.P., M.S.N. LAB BLOOD NON ADD-ON [facility] 200 [place] [address], [facility] 200 [place] [address] * Creatinine with Estimated GFR (03/08/2024 10:30 AM CDT) Pathologist [facility] Creatinine 0.78 0.59 - 1.04 mg/dL 03/08/2024 12:04 PM CDT DTL Estimated GFR (eGFR) 77 >=60 mL/min/BSA 03/08/2024 12:04 PM CDT DTL Comment: Estimated GFR calculated using the 2020 CKD_EPI creatinine equation. Blood (Blood, Venous) 03/08/2024 10:30 AM CDT 03/08/2024 11:09 AM CDT Shoshana Araujo APRN, C.N.P., M.S.N. LAB BLOOD ADD-ON [facility] 200 [place] [address], [facility] 200 [place] [address] * Albumin (03/08/2024 10:30 AM CDT) Albumin, S 4.2 3.5 - 5.0 g/dL 03/08/2024 12:04 PM CDT DTL Blood (Blood, Venous) 03/08/2024 10:30 AM CDT 03/08/2024 11:09 AM CDT Shoshana Araujo APRN, C.N.P., M.S.N. LAB BLOOD ADD-ON [facility] [address] [place] [address], [facility] [address] [place] [address] documented in this encounter Visit Diagnoses Diagnosis Replacement Aortic Valve Tissue documented in this encounter
--- OUTSIDE RECORDS SUMMARY | 2024-04-13 08:17 | XMS_ITS | Encounter Summary ---
Author Organization [facility] Address [address] [place] [address] Care Team Providers Care Box Office Agent Name Role Phone Unavailable Primary Care Provider Unavailabl e Reason for Visit * Reason Onset Date Comments Return Call Request 03/09/2024 Dr. Aroldo rankin [facility] is out of the office until Tuesday. Encounter Details Date Type Department Care Team (Latest Contact Info) Description 03/09/2024 Clinical Communication Department of Cardiovascular Medicine in [place], [place] [address] [place] [address] Derrick Malloy Jr., M.D. [address] [place] [phone] Return Call Request (Dr. Kendrick from [place] is out of the office until Tuesday.) Social History Tobacco Use Types Packs/Day Years Used Date Smoking Tobacco: Former Cigarettes Smokeless Tobacco: Never Comments:Smoked socially for about 2 years while in teens Alcohol Use Standard Drinks/Week Comments Yes 0 (1 standard drink = 0.6 oz pur e alcohol) occ. social drink [facility] Utilities Answer Date Recorded In the [...] and Family Twice a week 05/16/2019 Attends Church Services More than 4 times per year [...] and heating? Not hard at all 02/25/2023 [facility] of Occupat ional Health - Occupational [...] your living situation today? I have a [facility] place to live 03/04/2024 Education [...] CDT Appointment Department of Cardiovascular Diseases in [place], [place] [address] [place] [address] Derrick Malloy Jr., M.D. [address] [place] [address] Discharge Disposition: Home or Self Care 05/31/2024 2:00 PM CDT Office Visit Department of Cardiovascular Medicine in [place], [place] [address] [place] [address] Derrick Malloy Jr., M.D. 200 [place] [address] documented as of this encounter Visit Diagnoses Not on filedocumented in this encounter
--- OUTSIDE RECORDS SUMMARY | 2024-04-13 08:17 | XMS_ITS | Encounter Summary ---
Author Organization [facility] Address [address] [place] [address] Care Team Providers Care Stock Shaper Name Role Phone Unavailable Primary Care Provider Unavailabl e Encounter Details Date Type Department Care Team (Late st Contact Info) Description 03/12/2024 Documentation Department of Cardiovascular Medicine in [place], [place] [address] [place] [address] Derrick Malloy Jr., M.D. [address] [place] [phone] Social History Tobacco Use Types Packs/Day Years Used Date Smoking Tobacco: Former Cigarettes Smokeless Tobacco: Never Comments:Smoked socially for about 2 years while in teens Alcohol Use Standard Drinks/Week Comments Yes 0 (1 standard drink = 0.6 oz pur e alcohol) occ. social drink [facility] Utilities Answer Date Recorded In [...] and Family Twice a week 05/16/2019 Attends [employer] Services More than 4 times per year [...] and heating? Not hard at all 02/25/2023 [facility] of Occupat ional Health - Occupational [...] your living situation today? I have a [facility] place to live 03/04/2024 Education Answer [...] her home care physician, Dr. Kendrick, at [phone], who will anticoagulate the patient for 3-4 [...] CDT Appointment Department of Cardiovascular Diseases in [place], [place] [address] [place] [address] Derrick Malloy Jr., M.D. [address] [place] [address] Discharge Disposition: Home or Self Care 05/31/2024 2:00 PM CDT Office Visit Department of Cardiovascular Medicine in [place], [place] [address] [place] [address] Derrick Malloy Jr., M.D. [address] [place] [phone] documented as of this encounter Visit Diagnoses Not on filedocumented in this encounter
--- OUTSIDE RECORDS SUMMARY | 2024-04-13 08:17 | XMS_ITS | Encounter Summary ---
Author Organization [facility] Address [address] [place] [address] Care Team Providers Care Kaiawhina Kura [place] Maori Name Role Phone Unavailable Primary Care Provider Unavailabl e Reason for Visit * Outpatient (Routine) - Closed Specialty Diagnoses / Procedures Referred By Nathan galloway Referred To Contact Cardiovascular Disease Shoshana Araujo APRN CNicholasNNicholasP., M.S.N. 200 [place] [address] [facility] Referral ID Status Reason Start Date Expiration Date Visits Re quested Visits Authorized [id number] Closed 05/25/2023 05/24/2026 1 1 Encounter Details Date Type Department Care Team (Latest Contact Info) Description 03/08/2024 4:00 PM CDT Office Visit Department of Cardiovascular Medicine in [place], [place] [address] [place] [phone] Derrick Malloy Jr., M.D. 200 [place] [phone] Stenosis Aortic Valve Acquired (Primary Dx); Prosthesis [...] pur e alcohol) occ. social drink [facility] Utilities Answer Date Recorded In the [...] and heating? Not hard at all 02/25/2023 [facility] of Occupat ional Health - Occupational Stress [...] your living situation today? I have a [facility] place to live 03/04/2024 Education Answer Date [...] including rate of 62 beats per minute, OK interval of 192 milliseconds, axis, voltage, QRS [...] also to her home physician in the [facility], Dr. Pam Kendrick. Derrick Malloy Jr., M.D. 03/08/2024 documented in this encounter Plan of Treatment Upcoming Encounters Date Type Department Care Team (Latest Contact Info) Description 05/30/2024 2:55 PM CDT Appointment Department of Cardiovascular Diseases in [place], [place] [address] [place] [address] Derrick Malloy Jr., M.D. [address] [place] [address] Discharge Disposition: Home or Self Care 05/31/2024 2:00 PM CDT Office Visit Department of Cardiovascular Medicine in [place], [place] [address] [place] [phone] Derrick Malloy Jr., M.D. [address] [place] [phone] documented as of this encounter Visit Diagnoses Diagnosis Stenosis Aortic Valve Acquired- Primary Prosthesis Aortic Valve Hypertension Essential Primary Hyperlipidemia On Treatment Cancer Breast Personal History documented in this encounter
--- OUTSIDE RECORDS SUMMARY | 2024-04-13 08:17 | XMS_ITS | Encounter Summary ---
Author Organization [facility] Address [address] [place] [address] Care Team Providers Care Jointer Machine Name Role Phone Unavailable Primary Care Provider Unavailabl e Reason for Referral * Outpatient (Routine) - Closed Specialty Diagnoses / Procedures Referred By Nathan galloway Referred To Contact Diagnoses Replacement Aortic Valve Tissue Procedures Echo Transthoracic (TTE) - Complex Valvular Heart Disease Shoshana Araujo APRN, C.NGilmar, M.S.N. [address] [place] [phone] [facility] Referral ID Status Reason Start Date Expiration Date Visits Re quested Visits Authorized [id number] Closed 05/25/2023 05/24/2024 1 1 Reason for Visit * Outpatient (Routine) - Closed Specialty Diagnoses / Procedures Referred By Nathan galloway Referred To Contact Diagnoses Replacement Aortic Valve Tissue Procedures Echo Transthoracic (TTE) - Complex Valvular Heart Disease Shoshana Araujo APRN, C.N.Margi, M.S.N. [address] [place] [phone] [facility] Referral ID Status Reason Start Date Expiration Date Visits Re quested Visits Authorized [id number] Closed 05/25/2023 05/24/2024 1 1 Encounter Details Date Type Department Care Team (Latest Contact Info) Description 03/08/2024 12:11 PM CDT - 03/08/2024 11:59 PM CDT Hospital Encounter Department of Cardiovascular Diseases in [place], [place] [address] [place] [address] Shoshana Araujo, EDA, C.N.P., M.S.N. [address] [place] [address] Replacement Aortic Valve Tissue Discharge Disposition: Home or Self Care Social History Tobacco Use Types Packs/Day Years Used Date Smoking Tobacco: Former Cigarettes Smokeless Tobacco: Never Comments:Smoked socially for about 2 years while in teens Alcohol Use Standard Drinks/Week Comments Yes 0 (1 standard drink = 0.6 oz pur e alcohol) occ. social drink [facility] Utilities Answer Date Recorded In the past 12 months has e [employer], gas, oil, or water [employer] threatened to shut off services in your [...] and Family Twice a week 05/16/2019 Attends Congregational Services More than 4 times per year [...] and heating? Not hard at all 02/25/2023 [facility] of Occupat ional Health - Occupational Stress [...] living situation today? I have a [facility] to live 03/04/2024 Education Answer Date [...] CDT Appointment Department of Cardiovascular Diseases in [place], [place] [address] [place] [address] Derrick Malloy Jr., M.D. 200 [place] [phone] Discharge Disposition: Home or Self Care 05/31/2024 2:00 PM CDT Office Visit Department of Cardiovascular Medicine in [place], [place] [address] [place] [address] Derrick Malloy Jr., M.D. [address] [place] [phone] documented as of this encounter Procedures Procedure [...]
--- OUTSIDE RECORDS SUMMARY | 2024-04-13 08:17 | XMS_ITS | Encounter Summary ---
Author Organization [facility] Address [address] [place] [address] Care Team Providers Care Planer Chain Offbearer Name Role Phone Unavailable Primary Care Provider Unavailabl e Reason for Referral * MRI/CAT/PET Scan (Routine) - Closed Specialty Diagnoses / Procedures Referred By Nathan galloway Referred To Contact Radiology Diagnoses Replacement Aortic Valve Tissue Procedures CT Chest without IV Contrast Shoshana Araujo APRN, C.NGilmar, M.S.N. [address] [place] [phone] [facility] Referral ID Status Reason Start Date Expiration Date Visits Re quested Visits Authorized [id number] Closed 05/25/2023 05/24/2024 1 1 Reason for Visit * MRI/CAT/PET Scan (Routine) - Closed Specialty Diagnoses / Procedures Referred By Nathan galloway Referred To Contact Radiology Diagnoses Replacement Aortic Valve Tissue Procedures CT Chest without IV Contrast Shoshana Araujo APRN, C.N.Margi, M.S.N. [address] [place] [phone] [facility] Referral ID Status Reason Start Date Expiration Date Visits Re quested Visits Authorized [id number] Closed 05/25/2023 05/24/2024 1 1 Encounter Details Date Type Department Care Team (Latest Contact Info) Description 03/08/2024 8:39 AM CDT - 03/08/2024 9:52 AM CDT Hospital Encounter Department of Radiology, [facility], in [place], [place] [address] [place] [address] Shoshana Araujo APRN, C.N.P., M.S.N. [address] [place] [address] Replacement Aortic Valve Tissue Discharge Disposition: Home or Self Care Social History Tobacco Use Types Packs/Day Years Used Date Smoking Tobacco: Former Cigarettes Smokeless Tobacco: Never Comments:Smoked socially for about 2 years while in teens Alcohol Use Standard Drinks/Week Comments Yes 0 (1 standard drink = 0.6 oz pur e alcohol) occ. social drink [facility] Utilities Answer Date Recorded In the past 12 months has [employer], gas, oil, or water [employer] threatened to shut off services in your [...] and Family Twice a week 05/16/2019 Attends Synagogue Services More than 4 times per year [...] and heating? Not hard at all 02/25/2023 [facility] - [facility]ational Stress Questionnaire Answer Date [...] CDT Appointment Department of Cardiovascular Diseases in [place], [place] [address] [place] [address] Derrick Malloy Jr., M.D. 200 [place] [address] Discharge Disposition: Home or Self Care 05/31/2024 2:00 PM CDT Office Visit Department of Cardiovascular Medicine in [place], [place] [address] [place] [address] Derrick Malloy Jr., M.D. [address] [place] [address] documented as of this encounter Procedures Procedure [...] of the ascending thoracic aorta, 40 mm (zpzi-[id number]-[id number] double oblique and series 1000). Postoperative changes [...] dilatation of the ascending thoracic aorta, 40 mm([id number] double oblique and series 1000). Postoperative changes [...]
--- OUTSIDE RECORDS SUMMARY | 2024-04-13 08:17 | XMS_ITS | Clinical Summary ---
Author Organization [facility] Address [address] [place] [address] Care Team Providers Care Wood Finisher Name Role Phone Needs Pcp, Assignment Primary Care Provider [phone] Source Comments You are receiving this document as you are listed as the primary care provider,follow-up provider, or the patient has been referred to you for consultation.This is in compliance with the Medicare and[facility] EHR Incentive Program,which states Providers who transition their patient to another setting of careor provider of care or refers their patient to another provider of care shouldprovide summary care record for each transition of care or referral. [facility] Allergies Active Allergy Reactions Criticality Noted Date [...] Comments Hep C Screening (Preventive Services) 1945 MTM Covered 1945 Medicare Welcome Visit 1945 Zoster/Shingles (1 of 2) 1995 Dexa 2010 DTaP/Tdap/Td (2 - Tdap) 03/09/2021 03/09/2011, 02/16 COVID-19 Vaccine ( season) 2023 09/25/2020, 09/04/2020 Influenza (#1) 2024 [...] age to complete this topic Care Teams Wood Finisher Relationship Specialty Start Date End Date Needs Pcp, [place] [address] PCP - General 06/05/21
--- OUTSIDE RECORDS SUMMARY | 2024-04-13 08:17 | XMS_ITS | Encounter Summary ---
Author Organization [facility] Address [address] [place] [address] Care Team Providers Care Mud Mixer Helper Name Role Phone Unavailable Primary Care Provider Unavailabl e Reason for Visit * Reason Onset Date Comments Previsit Preparation 03/06/2024 Encounter Details Date Type Department Care Team (Latest Contact Info) Description 03/06/2024 9:30 AM CDT Clinical Communication Virtual Review in [place], [place] 200 [place] [address] Previsit Preparation Social History Tobacco Use Types Packs/Day Years Used Date Smoking Tobacco: Former Cigarettes Smokeless Tobacco: Never Tobacco Cessation:Counseling Given: Not Answered Comments:Smoked socially for about 2 years while in teens Alcohol Use Standard Drinks/Week Comments Yes 0 (1 standard drink = 0.6 oz pur e alcohol) occ. social drink [facility] Utilities Answer Date Recorded In the past 12 months has [employer], gas, oil, or water [employer] threatened to shut off services in your [...] and heating? Not hard at all 02/25/2023 [facility] of Occupat ional Health - [...] living situation today? I have a [facility] place to live 03/04/2024 Education Answer [...] CDT Appointment Department of Cardiovascular Diseases in [place], [place] [address] [place] [address] Derrick Malloy Jr., M.D. [address] [place] [address] Discharge Disposition: Home or Self Care 05/31/2024 2:00 PM CDT Office Visit Department of Cardiovascular Medicine in [place], [place] [address] [place] [address] Derrick Malloy Jr., M.D. [address] [place] [address] documented as of this encounter Visit Diagnoses Not on filedocumented in this encounter
--- NOTE | 2024-04-13 08:30 | CRLHL7_ITS ---
For Patients: As a result of the Century Cures Act, medical imaging exams and procedure reports are released immediately into your electronic medical record. You may view this report before your referring provider. If you have questions, please contact your health care provider. Indication: Renal lesion Technique: Noncontrast CT abdomen and pelvis Please note that all CT scans at this facility use dose modulation, iterative reconstruction, and/or weight-based dosing when appropriate to reduce radiation dose to as low as reasonably achievable. Comparison: 04/10/2024 Findings: Hyperdense material is present within the posterior left renal collecting system, similar to the prior exam. The Hounsfield units are similar. This area measures approximately 3 cm. The left ureter is otherwise unremarkable with an adjacent left pelvic phlebolith. No hydronephrosis. Normal right ureter and right kidney. The adrenal glands are within normal limits. Spleen normal with incidental splenule. Normal pancreas. The liver is normal. Gallbladder absent. Visualized breast implants are intact. Mild scarring in the left lung base. Aortic valve replacement. Uterine calcifications. Increased stool burden in the rectum. Sigmoid diverticulosis. No diverticulitis. No bowel obstruction. No enlarged lymph nodes. Degenerative changes lumbar spine. No fracture. Impression: Masslike area of slightly hyperdense material within the posterior left renal pelvis measuring approximately 3 cm. Favor blood clot as there is no enhancement when compared to the prior postcontrast exam. 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 Please note that all CT scans at this facility use dose modulation, iterative reconstruction, and/or weight-based dosing when appropriate to reduce radiation dose to as low as reasonably achievable. Dictated by Amilcar Vinson MD @ 04/13/2024 1:03:33 PM (Electronically Signed)
== END 2024-04-13 08:14 | disposition home or self-care (01) ==
LOC: CT 08:14
PROVIDERS: PCP Internal Medicine; Visit Provider Internal Medicine
DX: N28.9 Disorder of kidney and ureter, unspecified (principal)
CPT/HCPCS: 74176

== ENCOUNTER 2024-04-29 14:09 | Emergency (ER) | payer MEDICARE, SELFPAY ==
--- NOTE | 2024-04-29 14:13 | ED_ITS ---
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 She has had a lot of trouble with labile INR is. Typically supratherapeutic. She says for the past several readings she has had INR is between 2 and 3. She has had a lot of trouble with easy bruising while on warfarin and actually had some hematuria and flank pain a few weeks ago. 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 She is set up to see Urology at [place] next week for 1st consultation for that. She started having pain in her left hand, in particular with swelling and firmn ess and ecchymosis involving the dorsum of the left hand over the soft tissue in the web space in between the thumb and index finger several days ago. No injury or trauma or bumping to that area. He was initially painful and bruised but the dark discoloration had spread out. It had been getting better. This afternoon, without any reason or trauma she had an abrupt onset of recurrent pain involving her left hand in particular the 2nd and 3rd metacarpals and 2nd and 3rd fingers. She says it hurts to move her fingers. It feels tighter and firmer on that webspace between the thumb and index finger. Related Data Home Medications ?Medication ?Instructions ?Recorded ?Confirmed aspirin 81 mg tablet,delayed 81 mg PO QDAY 03/02/22 04/29/24 release (Adult Aspirin Regimen) polyethylene glycol 3350 17 g PO DAILY 03/02/22 04/23/24 gram/dose oral powder warfarin 5 mg tablet 2.5 mg PO DAILY 04/29/24 04/29/24 Previous Rx's ?Medication ?Instructions ?Recorded rosuvastatin 5 mg tablet 5 mg PO .Twice Weekly #25 tabs 04/07/23 losartan 50 mg-hydrochlorothiazide 1 tab PO QDAY #90 tabs 05/03/23 12.5 mg tablet metoprolol succinate 25 mg 25 mg PO QDAY #90 tabs 06/21/23 tablet,extended release 24 hr clobetasol 0.05 % topical cream 1 applic topical QHS #45 grams 01/23/24 ezetimibe 10 mg tablet 10 mg PO DAILY #90 tabs 04/02/24 hydrocodone 5 mg-acetaminophen 325 1 tab PO Q6H PRN pain #14 tabs 04/29/24 mg tablet Allergies Allergy/AdvReac Type Severity Reaction Status Date / Time Corticosteroids Allergy Severe Chest Verified 04/29/24 14:13 (Glucocorticoids) tightness and heart pounding [facility] Medical History (Updated 04/29/24 @ 16:08 by Jagjit Sahni MD) History of breast cancer ?Z85.3 - Personal history of malignant neoplasm of breast (ICD-10) Surgical History (Updated 04/20/24 @ 10:26 by Gracie Martin) History of aortic valve stenosis ?Z86.79 - Personal history of other diseases of the circulatory system (ICD- 10) History of carpal tunnel release of both wrists ?Z98.890 - Other specified postprocedural states (ICD-10) S/P TAVR (transcatheter aortic valve replacement) (~02/2023) ?Z95.2 - Presence of prosthetic heart valve (ICD-10) Hx of BSO (bilateral salpingo-oophorectomy) (06/27/09) ?Z90.79 - Acquired absence of other genital organ(s) (ICD-10) ?Z90.722 - Acquired absence of ovaries, 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) History of lumbar laminectomy ?Z98.890 - Other specified postprocedural states (ICD-10) History of parathyroidectomy ?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) History of oophorectomy History of laminectomy ?Z98.890 - Other specified postprocedural states (ICD-10) History of cholecystectomy ?Z90.49 - Acquired absence of other specified parts of digestive tract (ICD- 10) History of breast mammoplasty ?Z98.890 - Other specified postprocedural states (ICD-10) History of bilateral mastectomy ?Z90.13 - Acquired absence of bilateral breasts and nipples (ICD-10) Family History Father High blood pressure Heart disease Other Breast cancer Social History Narrative: does not use illicit drugs non-smoker rarely consumes alcohol What is your current living situation?: I presently have a place to live Problems where you live: no known problems In the past 12 months, utilities in danger of being shut off: no In past 12 months, lack of transportation kept you from medical appts, meetings, work, or getting things needed for daily living: no In the past 12 mos, have been you worried that your food would run out before you had money to buy more?: never true In the past 12 mos, the food you bought just didn't last and you didn't have money to buy more?: never true Smoking Status: Never smoker How often do you have a drink containing alcohol: monthly or less AUDIT-C Alcohol total score: 1 Non-prescribed substance use: denies use How often does anyone, including family, friends and others, physically hurt you : never How often does anyone, including family, friends and others, insult or talk down to you: never How often does anyone, including family, friends and others, threaten you with harm: never How often does anyone, including family, friends and others, scream or curse at you: never Little interest or pleasure in doing things: not at all Feeling down, depressed, or hopeless: not at all Exam Narrative: Exam Narrative: Constitutional: Appears well-developed and well-nourished. Alert. Conversant. Non toxic. HENT: Head: Atraumatic. Nose: Nose normal. Mouth/Throat: Oral mucosa is clear and moist. no trismus. Pharynx normal. Tonsils symmetric. No tonsillar enlargement, erythema, or exudate. Eyes: Conjunctivae normal. EOM normal. Pupils equal, round, and reactive to light. No scleral icterus. Neck: Normal range of motion. Neck supple. No tracheal deviation present. Cardiovascular: Normal rate, regular rhythm. No gallop. No friction rub. No murmur heard. Symmetric radial artery pulses . She has normal capillary refill in the finger tips of her thumb, index finger, middle finger, ring finger, 5th digit. She has ecchymoses across the dorsum of her hand and some ecchymosis tracking around onto the palmar surface of the 2nd and 3rd digit. However she does have slight pallor affecting the skin on the palmar surface of her hand involving the 2nd metacarpal, 3rd metacarpal Pulmonary/Chest: Effort normal. No stridor. No respiratory distress. No wheezes. No rales. No rhonchi . No tenderness. Musculoskeletal: RUE: Normal range of motion. No tenderness. No deformity LUE: Normal range of motion in her shoulder, elbow, wrist. She is not having any pain outside of her left hand. She does have fairly diffuse but old- appearing ecchymosis on the dorsum of her left hand. She is tender over the 2nd and 3rd metacarpals on the dorsum of the radial aspect of her hand. The soft tissue of the web space adjacent to her 2nd metacarpal is very firm to touch. There is no redness or warmth. The skin on the palmar surface of the hand looks a little bit dusky compared to the contralateral right hand but the distal fingertips are pink and well perfused with normal cap refill. She is quite tender over the soft tissue on the dorsal webspace between the thumb and index finger. Range of motion in her index finger, middle finger, thumb, limited by pain. No deformity no crepitus. No warmth. No redness. RLE: Normal range of motion. No edema. No tenderness. No deformity LLE: Normal range of motion. No edema. No tenderness. No deformity Lymph: No ascending lymphangitis Neurological: Alert and oriented to person, place, and time. Normal strength. CN II-VII intact. No sensory deficit. GCS eye subscore is 4. GCS verbal subscore is 5. GCS motor subscore is 6. Normal coordination Skin: Skin is warm and dry. No rash noted. No pallor. Normal capillary refill. Psychiatric: Normal mood. Normal affect. Const: Vital Signs, click to edit/add: Vital Signs - 24 hr 04/29/24 14:15 04/29/24 15:01 Temperature 97.8 F Pulse Rate 69 Pulse Rate [Pulse Oximeter] 77 Respiratory Rate 16 Blood Pressure [Ri ght Upper Arm] 189/115 H Pulse Oximetry 97 96 Oxygen Delivery Me thod Room Air Course Course ED Course: Recheck-pain much improved down to a 6/10. She is moving her hands much better. Range of motion dramatically improved. Previous visible duskiness has resolved. I suspect she had probably been keeping her and very elevated for while. No signs of any pallor, cyanosis nor does she have any evolving redness. Vital Signs Vital signs: Initial Vital Signs Temperature 97.8 F 04/29/24 14:15 Temperature Source Temporal Artery Scan 04/29/24 14:15 Pulse Rate 77 04/29/24 14:15 Respiratory Rate 16 04/29/24 14:15 Blood Pressure 189/115 H 04/29/24 14:15 Blood Pressure Mean 139 H 04/29/24 14:15 Blood Pressure Position Sitting 04/29/24 14:15 Pulse Oximetry 97 04/29/24 14:15 Oxygen Delivery Method Room Air 04/29/24 14:15 Vital Signs Temperature 97.8 F 04/29/24 14:15 Pulse Rate 77 04/29/24 14:15 Respiratory Rate 16 04/29/24 14:15 Blood Pressure 189/115 H 04/29/24 14:15 Pulse Oximetry 97 04/29/24 14:15 Oxygen Delivery Method Room Air 04/29/24 14:15 Temperature 97.8 F 04/29/24 14:15 Pulse Rate 69 04/29/24 15:01 Respiratory Rate 16 04/29/24 14:15 Blood Pressure 189/115 H 04/29/24 14:15 Pulse Oximetry 96 04/29/24 15:01 Oxygen Delivery Method Room Air 04/29/24 14:15 Medications Administered Medications: Discontinued Medications Generic Name Dose Route Start Last Admin Trade Name Freq PRN Reason Stop Dose Admin Hydromorphone HCl 0.5 mg 04/29/24 14:30 04/29/24 14:53 Hydromorphone 0.5 Mg/0.5 Ml Inj IVP 04/29/24 14:31 0.5 mg ONCE ONE Administration Ondansetron HCl 4 mg 04/29/24 14:30 04/29/24 14:53 Ondansetron 2 Mg/Ml Inj IVP 04/29/24 14:31 4 mg ONCE ONE Administration Medical Decision Making [facility] Narrative Medical decision making narrative: Pleasant 79-year-old female with a history of aortic stenosis and prosthetic aortic valve (TAVR) with a probable aortic valve clot diagnosed at [facility] now on several months of warfarin therapy. She has had a lot of trouble with easy bruising and hematoma formations because of the warfarin. She presents to the ER today with atraumatic bruising and swelling involving the soft tissue on the left hand on the radial border of the 2nd metacarpal in the webspace between the thumb and index finger associated with ecchymosis on her hand on the dorsal and palmar surfaces. No trauma. However given the amount of bruising we did obtain x-ray which is fortunately negative for any acute fracture there. At this point there is no evidence for any DVT in the left upper extremity since there is no other bruising or swelling proximal to the hand. Consider possible acute limb ischemia causing her acute hand pain. Initially it seemed like her palmar surface is a bit dusky but that resolved here in the ER. Suspected probably had to do with elevation and positioning. She does have strong pulses and normal distal cap refill. At this point I do not think she needs transfer for CT angio of her left upper extremity. There is no redness or warmth of the hand nor is there any fever to suggest a cellulitis or abscess in the hand. No recent injury or animal bite. Laboratory workup reassuring with normal white count, normal hemoglobin. INR therapeutic at 2.37. Pain much improved after meds given here in the ER. She and her are comfortable with plan to discharge home for careful monitoring. She will use Tylenol for pain. Prescription for Simon to use for breakthrough pain provided. Opiate precautions reviewed. Return precautions reviewed and questions answered.. Lab Data Labs: Lab Results 04/29/24 Range/Units 14:47 WBC 4.81 (4.50-11.00) K/uL RBC 4.48 (4.00-5.20) m/uL Hgb 13.3 (12.0-16.0) gm/dL Hct 40.1 (33.0-51.0) % MCV 90 (80-100) fL MCH 30 (26-34) pg MCHC 33 (32-36) gm/dL RDW Coeff of Shankar 12.7 (11.5-15.5) % Plt Count 194 (140-440) K/uL Neut % (Auto) 45.8 (42.0-72.0) % Lymph % (Auto) 41.6 (20-44) % [place] % (Auto) 8.5 (0.0-11.0) % Eos % (Auto) 2.7 (0.0-7.0) % Baso % (Auto) 0.8 (0.0-3.0) % Neut # (Auto) 2.20 (1.7-7.0) K/uL Lymph # (Auto) 2.00 (0.90-2.90) K/uL [place] # (Auto) 0.40 (0.00-0.90) K/UL Eos # (Auto) 0.13 (0.00-0.50) K/uL Baso # (Auto) 0.04 (0.00-0.30) K/uL Abs Immat Gran (auto) 0.03 (0.00-0.30) K/uL Imm/Tot Granulo (auto) 0.6 % INR 2.37 H (0.91-1.10) Sodium 137 (135-149) mmol/L Potassium 3.6 (3.6-5.1) mmol/L Chloride 102 (96-114) mmol/L Carbon Dioxide 29 (20-32) mmol/L Anion Gap 6 L (7-15) mEq/L BUN 15 (7-30) mg/dL Creatinine 0.6 (0.5-1.5) mg/dL Estimated Creat Clear 42.70 Estimated GFR 91 ml/min Glucose 115 (60-115) mg/dL Calcium 9.5 (8.4-10.6) mg/dL Imaging Data XR Left hand: Attestation: I have reviewed the pertinent imaging results. Radiologist's impression: Findings and impression: Presence of ring on the ring finger limits evaluation of the 4th digit. No definite acute fracture or dislocation. There is an osseous fragment along the dorsal aspect of the wrist, which may be related to an age indeterminate triquetral fracture. Discharge Plan Discharge Clinical Impression: Hematoma of left hand Patient Disposition: Home, Self-Care Condition: Stable Instructions: Contusion in Adults (ED) Additional Instructions: As we discussed, your INR is in the therapeutic stone today. I suspect that your hand pain and swelling or due to a collection of blood under the skin (hematoma). I do not see any signs of an infection. I do not see any signs of a blood clot in the artery or vein feeding your hand. Your x-ray does not show any sign of broken bone in that painful area. As we discussed, it is best to stay on the warfarin for now because his helps protect you from strokes because of the blood clot on your aortic valve. Stay under current warfarin regimen because her INR is therapeutic today. To treat the pain in her hand you can use Tylenol, but you should avoid ibup rofen or other NSAIDs. Use the prescription pain killer (Simon) if needed for uncontrolled pain. Be careful with Simon because it does cause dizziness, drowsiness, and can be addictive. If you have worsening pain in your hand, swelling in your hands, redness or warmth of your hand or fever, or free having duskiness in your fingers, or any other problems, please come back to the ER, or see your doctors at [place] right away. Prescriptions: New hydrocodone-acetaminophen 5-325 mg tablet 1 tab PO Q6H PRN (Reason: pain) Qty: 14 0RF No Action clobetasol 0.05 % cream 1 applic topical QHS Qty: 45 0RF Rx Instructions: apply small amount to area nightly x 2 weeks, then twice weekly polyethylene glycol 3350 17 gram/dose powder PO DAILY aspirin [Adult Aspirin Regimen] 81 mg tablet,delayed release (DR/EC) 81 mg PO QDAY warfarin 5 mg tablet 2.5 mg PO DAILY Protocol: Dose Management Condition: Tuesday Dose/Route: 2.5 mg Instruction: 0.5 x 5 mg tablets Condition: Tuesday Dose/Route: 2.5 mg Instruction: 0.5 x 5 mg tablets Condition: Tuesday Dose/Route: 2.5 mg Instruction: 0.5 x 5 mg tablets Condition: Tuesday Dose/Route: 2.5 mg Instruction: 0.5 x 5 mg tablets Condition: Dose/Route: 2.5 mg Instruction: 0.5 x 5 mg tablets Condition: Tuesday Dose/Route: 2.5 mg Instruction: 0.5 x 5 mg tablets Condition: Tuesday Dose/Route: 2.5 mg Instruction: 0.5 x 5 mg tablets Protocol Text: Adjustment Start Date: Tuesday04/17/24 INR Value: 2.3 INR Date: 04/17/24 Recheck Date: 04/24/24 rosuvastatin 5 mg tablet 5 mg PO .Twice Weekly Qty: 25 4RF losartan-hydrochlorothiazide 50-12.5 mg tablet 1 tab PO QDAY Qty: 90 4RF metoprolol succinate 25 mg tablet extended release 24 hr 25 mg PO QDAY Qty: 90 3RF ezetimibe 10 mg tablet 10 mg PO DAILY Qty: 90 3RF Follow Up/Referrals: Pam Kendrick MD [Primary Care Provider] - Stand Alone Forms: backstitchth Info Instructions
[2024-04-29 14:15] VITALS: BP 189/115; PULSE 77; RESP 16; TEMP 36.6; O2SAT 97; BMI 25.8
--- NOTE | 2024-04-29 14:31 | CRLHL7_ITS ---
For Patients: As a result of the Cures Act, medical imaging exams and procedure reports are released immediately into your electronic medical record. You may view this report before your referring provider. If you have questions, please contact your health care provider. Indication: Left hand pain, swelling Technique: Left hand 3 views. Comparison: None. Findings and impression: Presence of ring on the ring finger limits evaluation of the 4th digit. No definite acute fracture or dislocation. There is an osseous fragment along the dorsal aspect of the wrist, which may be related to an age indeterminate triquetral fracture. 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 Moderate radiocarpal joint osteoarthritis with some sclerosis of the lunate and subchondral cystic change. Chondrocalcinosis of the TFCC. Dictated by Swati Rich MD @ 04/29/2024 3:29:43 PM (Electronically Signed)
[2024-04-29] MEDS: ONDANSETRON 2 MG/ML inj 4 MG IVP (14:53)
[2024-04-29] MEDS: HYDROmorphone 0.5 mg/0.5 ml inj IVP (14:53)
[2024-04-29 14:55] LABS: Basophils Absolute Auto 0.04 K/uL (0.00-0.30); Basophils Percent Auto 0.8 % (0.0-3.0); Eosinophils Absolute Auto 0.13 K/uL (0.00-0.50); Eosinophils Percent Auto 2.7 % (0.0-7.0); Hematocrit 40.1 % (33.0-51.0); Hemoglobin* 13.3 gm/dL (12.0-16.0); Immature Granulocytes Abs Auto 0.03 K/uL (0.00-0.30); Immature Granulocytes Pct Auto 0.6 %; Lymphocytes Percent Auto 41.6 % (20-44); Mean Corpuscular HGB Conc 33 gm/dL (32-36); Mean Corpuscular Hemoglobin 30 pg (26-34); Mean Corpuscular Volume 90 fL (80-100); Monocytes Percent Auto 8.5 % (0.0-11.0); Neutrophils Percent Auto 45.8 % (42.0-72.0); Platelet Count* 194 K/uL (140-440); RDW Coefficient of Variation % 12.7 % (11.5-15.5); Red Blood Count 4.48 m/uL (4.00-5.20); White Blood Count* 4.81 K/uL (4.50-11.00)
[2024-04-29 14:58] LABS: Slide Review Reflex No
[2024-04-29 15:01] VITALS: PULSE 69; O2SAT 96
[2024-04-29 15:10] LABS: Chloride* 102 mmol/L (96-114); Sodium* 137 mmol/L (135-149)
[2024-04-29 15:11] LABS: Potassium* 3.6 mmol/L (3.6-5.1)
[2024-04-29 15:13] LABS: Creatinine* 0.6 mg/dL (0.5-1.5); Estimated Glomerular Filt Rate 91 ml/min; INR 2.37 (0.91-1.10); Prothrombin Time 27.7 Seconds
[2024-04-29 15:14] LABS: Anion Gap 6 mEq/L (7-15); Blood Urea Nitrogen* 15 mg/dL (7-30); Calcium* 9.5 mg/dL (8.4-10.6); Carbon Dioxide* 29 mmol/L (20-32); Glucose* 115 mg/dL (60-115)
[2024-04-29 15:15] VITALS: PULSE 64; O2SAT 95
[2024-04-29 15:30] VITALS: PULSE 64; O2SAT 93
[2024-04-29 15:45] VITALS: PULSE 60; O2SAT 93
== END 2024-04-29 16:24 | disposition home or self-care (01) ==
PROVIDERS: Emergency Provider Emergency Medicine; PCP Internal Medicine
DX: S60.222A Contusion of left hand, initial encounter (principal)
CPT/HCPCS: 36415; 73130; 80048; 85025; 85610; 94761; 96374; 96375; 99283; 99284; J1170; J2405

== ENCOUNTER 2024-05-07 10:32 | Outpatient (CLI) | payer MEDICARE, SELFPAY ==
--- OUTSIDE RECORDS SUMMARY | 2024-05-11 03:36 | XMS_ITS | Clinical Summary ---
Author Organization [facility] Address [address] [place] [id number] Care Team Providers Care Service Establishment Attendant Name Role Phone Claudia Ren PA-C Primary [...] 1945 HEPATITIS C SCREENING 1963 LIPID 1985 GLUCOSE 12/23/2007 12/22/2004 FALL RISK ASSESSMENT 2010 MEDICARE ANNUAL WELLNESS VISIT 2010 RSV VACCINE (1 - 1-dose 75+ series) 02/16/2020 PHQ-2 (once per calendar year) 2023 COVID-19 Vaccine ( season) 2024 06/09/2022, 12/24/2021, 06/05/2021, Additional history exists INFLUENZA VACCINE (#1) 2024 2, 06/01/2021, 06/04/2020, [...] Recently Relevant to Health Maintenance Care Teams Service Establishment Attendant Relationship Specialty Start Date End Date Claudia Ren PA-C [facility] [address] [place] [address] PCP - General Physician Bullet Casting Operator 03/15/23
--- OUTSIDE RECORDS SUMMARY | 2024-05-11 03:36 | XMS_ITS | Referral Summary ---
Author Organization [facility] Address [address] [place] [id number] Care Team Providers Care Concrete Curer Name Role Phone Claudia Ren PA-C Primary [...] Recently Relevant to Health Maintenance Care Teams Concrete Curer Relationship Specialty Start Date End Date Claudia Ren PA-C [facility] [address] [place] [address] PCP - General Physician Fleet Administrative Assistant 03/15/23
--- OUTSIDE RECORDS SUMMARY | 2024-05-11 03:37 | XMS_ITS | Encounter Summary ---
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 [address] [place] [address] [facility] Referral ID Status Reason Start Date Expiration Date Visits Re quested Visits Authorized [id number] Closed 05/04/2024 05/04/2025 1 1 * Outpatient (Routine) - Authorized Specialty Diagnoses / Procedures Referred By Nathan galloway Referred To Contact Diagnoses Hematuria Gross Procedures Cystoscopy (specific provider) Lisandro Borja M.D. [address] [place] [address] Lisandro Borja M.D. [address] [place] [address] Referral ID Status Reason Start Date Expiration Date V isits Requested Visits Authorized [id number] Authorized 05/04/2024 05/04/2025 1 1 * Outpatient (Routine) - Authorized Specialty Diagnoses / Procedures Referred By Contac t Referred To Contact Urology Diagnoses Hematuria Gross Lisandro Borja M.D. [address] [place] [phone] Lsiandro Borja M.D. [address] [place] [phone] Referral ID Status Reason Start Date Expiration Date V isits Requested Visits Authorized [id number] Authorized 05/04/2024 11/03/2025 1 1 * Outpatient (Routine) - Authorized Specialty Diagnoses / Procedures Referred By Contac t Referred To Contact Diagnoses Hematuria Gross Procedures URO Cystoscopy (general) Lisandro Borja M.D. [address] [place] [phone] [facility] Referral ID Status Reason Start Date Expiration Date V isits Requested Visits Authorized [id number] Authorized 05/04/2024 05/04/2025 1 1 * MRI/CAT/PET Scan (Routine) - Authorized Specialty Diagnoses / Procedures Referred By Contac t Referred To Contact Radiology Diagnoses Hematuria Gross Procedures CT Urogram without and with IV Contrast Lisandro Borja M.D. [address] [place] [phone] [facility] Referral ID Status Reason Start Date Expiration Date V isits Requested Visits Authorized [id number] Authorized 05/04/2024 05/04/2025 1 1 Reason for Visit * Appointment Request (Routine) - Closed Specialty Diagnoses / Procedures Referred By Contac t Referred To Contact Urology Diagnoses Mass Kidney Referral ID Status Reason Start Date Expiration Date Visits Re quested Visits Authorized [id number] Closed 04/13/2024 04/13/2025 1 1 Encounter Details Date Type Department Care Team (Latest Contact Info) Description 05/04/2024 1:00 PM CDT Comprehensive Visit Department of Urology in [place], [place] [address] [place] [address] Lisandro Borja M.D. [address] [place] [phone] Kidney And Ureter Disorder (Primary Dx); Hematuria Gross; Mass Kidney Social History Tobacco Use Types Packs/Day Years Used Date Smoking Tobacco: Former Cigarettes Smokeless Tobacco: Never Comments:Smoked socially for about 2 years while in teens Alcohol Use Standard Drinks/Week Comments Yes 0 (1 standard drink = 0.6 oz pur e alcohol) occ. social drink [facility] Utilities Answer Date Recorded In the past 12 months has e [employer] system, gas, oil, or water [employer] threatened to shut off services in your [...] and Family Twice a week 05/16/2019 Attends Mosque Services More than 4 times per year [...] all 02/25/2023 [facility] Questionnaire Answer Date Recorded [...] as of this encounter H&P Notes * Vianey Price APRN, C.N.P., D.N.P. - 05/04/2024 1:00 PM CDT REQUESTING PROVIDER: No ref. provider found SUBJECTIVE CHIEF COMPLAINT / REASON FOR CONSULT Renal mass. Patient seen on Dr. Borja's calendar. HISTORY OF PRESENT ILLNESS Cecilia Diaz is a pleasant 79 y.o. female who presents today for evaluation for a renal mass. Patient was seen at an outside facility in the emergency department for gross hematuria in the setting of order anticoagulation with an INR of 5.38. 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 CT scan in the emergency department at theend of March was concerning for an expansive soft tissue density in the left renal pelvis that could not rule out clot versus neoplasm and a CT abdomen and pelvis without contrast few days later felt there was still a clot there and a possible underlying neoplasm. Her warfarin is now under controlwith an INR in appropriate range. She continues to [facility] for this. Per an outside note: Size of the mass: 3 cm Location of mass: left kidney Mildly expansive soft tissue density lesion within the left renal pelvis. Mild urothelial hyperenhancement of the proximal left ureter. No significant hydronephrosis bilaterally. Denies family history of malignancy. 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 Denies hematuria as it has resolved since the episode, flank pain, abdominal pain, fever, chills, vomiting, unintentional weight loss, and recent UTIs. She does note intermittent nausea. The following portions of the patient's history were reviewed and updated as appropriate: allergies, current medications, family history, medical history, social history, surgical history and problemlist. Constitutional: Positive for fatigue. Gastrointestinal: Positive for abdominal (belly) pain or cramping. - Negative for nausea and vomiting. Genitourinary: Positive for blood in urine. Hematologic: - Negative for abnormal lumps or bumps. Neurological: - Negative for headaches. Per HPI. Answers submitted by the patient for this visit: Cancer Intake Questionnaire (Submitted on 04/27/2024) Weight loss?: No flank pain: Yes Suprapubic pain: No No pain: No Bone pain: Yes Perineal pain: No Testicular pain: No Which of the following best describes your current physical abilities?: 0 - normal activity History of prior chemotherapy: No History of radiation: No Chemotherapy: No Receiving treatment: No Have you ever been exposed to dangerous chemicals or radioactivity? (Examples: Farming, Shipping, construction, chemical plants, etc) : No Problem List: Patient Active Problem List Diagnosis Stenosis Aortic Valve Acquired Hyperlipidemia On Treatment Atherosclerotic Heart Disease Of [place] Coronary Artery Without Angina Pectoris Hypertension Essential Primary Chronic Diastolic (Congestive) Heart Failure (HCC) Overweight Body Mass Index 25-29.9 Adult Cancer Breast Personal History Prosthesis Aortic Valve No past medical history on file. Past Surgical History: Procedure Laterality Date CATH AORTIC ANGIOGRAM N/A 03/07/2023 Procedure: Aortic Root Aortogram; Surgeon: Carrington Castillo M.D., Ph.D.; Location: [facility] CATH TEMPORARY PACEMAKER N/A 03/07/2023 Procedure: Temporary pacemaker insertion; Surgeon: Carrington Castillo M.D., Ph.D.; Location: [facility] CATH VALVE REPLACEMENT N/A 03/07/2023 Procedure: Transcutaneious Aortic Valve Implantation; Surgeon: Carrington Castillo M.D., Ph.D.; Location: [facility] OTHER CONVERTED SHX (SEE COMMENT) N/A 04/10/2009 >1. Cervical reexploration. 2. Minimally invasive right superior TRANSCATHETER AORTIC VALVE REPLACEMENT (TAVR) TRANS FEMORAL N/A 03/07/2023 Procedure: TRANSCATHETER AORTIC VALVE REPLACEMENT TRANS FEMORAL; Surgeon: Curry Dillon M.D.; Location: [facility] SOCIAL HISTORY Social History Tobacco Use Smoking status: Former Types: Cigarettes Smokeless tobacco: Never Tobacco comments: Smoked socially for about 2 years while in teens Vaping Use Vaping status: never used Substance Use Topics Alcohol use: Yes Comment: occ. social drink Drug use: Never No family history on file. OBJECTIVE PHYSICAL EXAMINATION Constitutional: She is oriented to person, place, and time. She appears well- developed and well-nourished. Pulmonary/Chest: Effort normal. Neurological: She is alert and oriented to person, place, and time. Psychiatric: She has a normal mood and affect. Her behavior is normal. Judgment and thought contentnormal. DIAGNOSTICS Labs: Recent Results (from the past 72 hour(s)) CBC with Differential, Blood Collection Time: 05/04/24 11:02 AM Result Value Hemoglobin 13.4 Hematocrit 40.8 Erythrocytes 4.50 MCV 90.7 RBC Distrib Width 12.9 Platelet Count 213 Leukocytes 5.3 Neutrophils 3.19 Lymphocytes 1.46 Monocytes 0.53 Eosinophils 0.06 Basophils <0.03 Microscopic Automated Collection Time: 05/04/24 11:08 AM Result Value Microscopy Normal RBC None Seen WBC None Seen pH, Urine Collection Time: 05/04/24 11:08 AM Result Value pH, U 6.8 Osmolality, Urine Collection Time: 05/04/24 11:08 AM Result Value Osmolality, U 442 Dipstick, Urine Collection Time: 05/04/24 11:08 AM Result Value Hemoglobin, QL, U Negative Leukocyte Esterase, U Negative Nitrite, U Negative Ketone, U Negative Glucose, U Negative Imaging: I personally reviewed the images. CT ABDOMEN PELVIS WO CON-Outside CT Body Result Date: 04/26/2024 Narrative: This order has been created and auto-finalized to support the import of outside images. If available, original interpretation can be found on the Media Tab in Chart Review, in Document Viewer, as an image in QREADS or as an Addendum. If a re-interpretation or overread is required please follow defined workflow. CT ABDOMEN PELVIS W CON-Outside CT Body Result Date: 04/26/2024 Narrative: This order has been created and auto-finalized to support the import of outside images. If available, original interpretation can be found on the Media Tab in Chart Review, in Document Viewer, as an image in QREADS or as an Addendum. If a re-interpretation or overread is required please follow defined workflow. ASSESSMENT / PLAN I had the pleasure of meeting with Ms. Diaz in clinic today. We discussed that solid masses in the kidney have a high likelihood of being malignant in the realmof 80-85%. There are benign entities such as oncocytomas and angiomyolipomas. Renal masses typically grow 3 mm per year. Growth rate most associated with an aggressive tumor is greater than 7-8 mm per year. There is a <1% chance of metastasis for renal masses under 4 cm. This is 1% at 4 cm. Her episode of gross hematuria, we will need a CT urogram, urine cytology, and cystoscopy. We will have her meet with Dr. Borja for a follow up visit following this testing. If this is in fact a renal mass and not a clot, we will consider ureteroscopy with biopsy as next steps. We will discuss this further at her follow up visit following testing. The patient was actively involved in our discussion in clinic today. All questions were answered tothe best of our team's ability. Our contact information was provided to the patient who is encouraged to reach out with any further questions or concerns via patient portal or telephone call. Patient was seen in conjunction with Dr. Borja who is in agreement with the above-stated evaluation and plan. PLAN Cystoscopy, urine cytology, CT urogram and follow up visit with Dr. Jonh Price APRN, C.N.P., D.N.P. 05/04/2024 12:38 PM CDT * Lisandro Borja M.D. - 05/04/2024 1:00 PM CDT This is a supervisory note on Ms. Diaz. Please refer to Miss Albert 's note. In summary, Ms. Diaz is a 79 y.o. female referred for evaluation of left renal pelvis filling defect . Patient was seen and discussed with me. We will obtain CT urogram to better characterize this lesion. We will also obtain urine cytology and do office cystoscopy after CT urogram completed. We will reconvene with the patient to discuss test results and plan going forward. I agree with assessment and plan. documented in this encounter Plan of Treatment Upcoming Encounters Date Type Department Care Team (Latest Contact Info) Description 05/14/2024 10:20 AM CDT Appointment Department of Laboratory Medicine and Pathology, [facility], in [place] [address] [place] [address] Lisandro Borja M.D. [address] [place] [phone] 05/14/2024 11:00 AM CDT Procedure visit Department of Urology in [place], [place] [address] [place] [phone] Lisandro Borja M.D. [address] [place] [phone] 05/14/2024 11:30 AM CDT Office Visit Department of Urology in [place], [place] [address] [place] [phone] Lisandro Borja M.D. [address] [place] [phone] 05/30/2024 2:55 PM CDT Appointment Department of Cardiovascular Diseases in [place], [place] [address] [place] [phone] Derrick Malloy Jr., M.D. [address] [place] [phone] Discharge Disposition: Home or Self Care 05/31/2024 2:00 PM CDT Office Visit Department of Cardiovascular Medicine in [place], [place] [address] [place] [phone] Derrick Malloy Jr., M.D. 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) Pathology and Cytology Routine Hematuria Gross Expected: 05/04/2024 (Approximate), Expires: 08/03/2025 Scheduled Referrals Name Type Priority Associated Diagnoses Order Schedule Urology office visit (clinic) Outpatient Referral Routine Hematuria Gross 1 Occurrences starting 05/04/2024 until 08/03/2025 documented as of this encounter Results * CT Urogram without and with IV Contrast (05/07/2024 9:24 AM CDT) Anatomical Region Laterality Modality Abdomen, Pelvis, Abdominal R ST LOS, Abdominal ARZ LOS, Abdominal FLA LOS N/A Computed Tomography 05/07/2024 9:12 AM CDT Impressions 05/07/2024 10:19 AM CDT 1. Previously described upper and interpolar hyperdensity seen within the left renal collecting system on preceding CT of 04/13/2024 is significantly decreased in conspicuity on today's noncontrast examination. --In the region of this abnormality seen previously, thickened appearing, centrally low attenuating interpolar left renal lesion is demonstrated which is not opacified with contrast on excretory phase imaging. Differential considerations for this appearance could include ??potentially urothelial neoplastic lesion, or potential sequela of hemorrhagic/infection within a parapelvic cyst. --No evidence of a duplicated renal collecting system. 2. No adenopathy. Normal-appearing left renal artery and vein. Narrative 05/07/2024 10:19 AM CDT EXAM: CT UROGRAM WITHOUT AND WITH IV CONTRAST COMPARISON: Correlation with CT of the chest 03/08/2024; outside hospital CT abdomen/pelvis 04/13/2024. FINDINGS: Urographic findings: --Urolithiasis: None. --Parenchyma/enhancement: Renal enhancement is symmetric. There is no hydronephrosis. No suspicious appearing renal mass lesion. There is mild left-sided urothelial thickening/enhancement. --Upper urinary tracts: With specific attention to the preceding outside hospital CT of 04/13/2024, most dense appearing filling defect seen across the upper and interpolar calyces of the left kidney is less discretely visualized. In this location, there is a somewhat thick-walled appearing peripherally enhancing structure, which on excretory phase imaging, is not opacified with contrast. Size is estimated maximally at approximately 1.5 x 1.5 x 1.3 cm in size (series 12, image #162; series 14, image 87). Distal portions of the left ureter are not well opacified, likely secondary to intermittent ureteric peristalsis. No suspicious appearing filling defect is demonstrated within these limitations. --Urinary bladder: Within normal limits. Nonurographic findings: Cardiac size is mildly enlarged. Bibasilar atelectasis. Partial inclusion of bilateral breast implants. Uniform hepatic enhancement. No worrisome appearing hepatic lesion. No biliary ductal dilatation. Cholecystectomy. The spleen, pancreas, and adrenal glands are stable from prior. Uterus has an unremarkable CT appearance. No abnormal bowel wall thickening or dilatation. No morphology of bowel obstruction or free intraperitoneal gas. Multiple colonic diverticula are present without evidence of diverticulitis. Normal appendix. Mild diffuse aortobiiliac atherosclerotic vascular calcifications without evidence of aneurysmal dilatation. Visceral arterial and venous branches are widely patent, to include the renal arteries and veins. There are scattered subcentimeter mesenteric and retroperitoneal lymph nodes. No evidence of abdominal or pelvic adenopathy. Relatively diffuse spondylosis throughout the imaged lower thoracic and lumbar spine. No acute or aggressive appearing skeletal abnormality. Bilateral hip arthrosis. Procedure Note Amilcar Iqbal M.D. - 05/07/2024 EXAM: CT UROGRAM WITHOUT AND WITH IV CONTRAST COMPARISON: Correlation with CT of the chest 03/08/2024; outside hospitalCT abdomen/pelvis 04/13/2024. FINDINGS: Urographic findings: --Urolithiasis: None. --Parenchyma/enhancement: Renal enhancement is symmetric. There is nohydronephrosis. No suspicious appearing renal mass lesion. There is mildleft-sided urothelial thickening/enhancement. --Upper urinary tracts: With specific attention to the preceding outsidehospital CT of 04/13/2024, most dense appearing filling defect seen acrossthe upper and interpolar calyces of the left kidney is less discretelyvisualized. In this location, there is a somewhat thick-walled appearing peripherally enhancing structure,which on excretory phase imaging, is not opacified with contrast. Size isestimated maximally at approximately 1.5 x 1.5 x 1.3 cm in size ([id number], image #162; series 14, image 87). Distal portions of the left ureter are not well opacified, likelysecondary to intermittent ureteric peristalsis. No suspicious appearingfilling defect is demonstrated within these limitations. --Urinary bladder: Within normal limits. Nonurographic findings: Cardiac size is mildly enlarged. Bibasilaratelectasis. Partial inclusion of bilateral breast implants. Uniform hepatic enhancement. No worrisome appearing hepatic lesion. Nobiliary ductal dilatation. Cholecystectomy. The spleen, pancreas, and adrenal glands are stable from prior. Uterus hasan unremarkable CT appearance. No abnormal bowel wall thickening or dilatation. No morphology of bowelobstruction or free intraperitoneal gas. Multiple colonic diverticula arepresent without evidence of diverticulitis. Normal appendix. Mild diffuse aortobiiliac atherosclerotic vascular calcifications withoutevidence of aneurysmal dilatation. Visceral arterial and venous branchesare widely patent, to include the renal arteries and veins. There arescattered subcentimeter mesenteric and retroperitoneal lymph nodes. No evidence of abdominal or pelvicadenopathy. Relatively diffuse spondylosis throughout the imaged lower thoracic andlumbar spine. No acute or aggressive appearing skeletal abnormality.Bilateral hip arthrosis. IMPRESSION: 1. Previously described upper and interpolar hyperdensity seen within theleft renal collecting system on preceding CT of 04/13/2024 is significantlydecreased in conspicuity on today's noncontrast examination. --In the region of this abnormality seen previously, thickened appearing,centrally low attenuating interpolar left renal lesion is demonstratedwhich is not opacified with contrast on excretory phase imaging.Differential considerations for this appearance could include potentially urothelial neoplastic lesion, orpotential sequela of hemorrhagic/infection within a parapelvic cyst. --No evidence of a duplicated renal collecting system. 2. No adenopathy. Normal-appearing left renal artery and vein. Lisandro WALKER CT PROCEDURES documented in this encounter Visit Diagnoses Diagnosis Kidney And Ureter Disorder- Primary Hematuria Gross Mass Kidney Hematuria Gross Mass Kidney documented in this encounter
--- OUTSIDE RECORDS SUMMARY | 2024-05-11 03:37 | XMS_ITS | Encounter Summary ---
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 Name Role Phone Unavailable Primary Care Provider Unavailabl e Reason for Visit * Reason Onset Date Comments [facility] - Outside Materials 04/24/2024 Urology Encounter Details Date Type Department Care Team (Latest Contact Info) Description 04/24/2024 Clinical Communication Department of Urology in [place], [place] [address] [place] [address] Provider, Unknown [facility] - Outside Materials (Urology) Social History Tobacco Use Types Packs/Day Years Used Date Smoking Tobacco: Former Cigarettes Smokeless Tobacco: Never Comments:Smoked socially for about 2 years while in teens Alcohol Use Standard Drinks/Week Comments Yes 0 (1 standard drink = 0.6 oz pur e alcohol) occ. social drink C Utilities Answer Date Recorded In the past 12 months has [employer], gas, oil, or water [employer] threatened to shut off services in your [...] and Family Twice a week 05/16/2019 Attends Congregation Services More than 4 times per year [...] and heating? Not hard at all 02/25/2023 [facility] - Occupational Stress [...] living situation today? I have a [facility] place to live 03/04/2024 Education Answer [...] Appointment Department of Laboratory Medicine and Pathology, [facility] in [place], [place] [address] [place] [address] Lisandro Borja M.D. [address] [place] [phone] 05/14/2024 11:00 AM CDT Procedure visit Department of Urology in [place], [place] [address] [place] [address] Lisandro Borja M.D. [address] [place] [phone] 05/14/2024 11:30 AM CDT Office Visit Department of Urology in [place], [place] [address] [place] [phone] Lisandro Borja M.D. [address] [place] [phone] 05/30/2024 2:55 PM CDT Appointment Department of Cardiovascular Diseases in [place], [place] [address] [place] [address] Derrick Malloy Jr., M.D. [address] [place] [phone] Discharge Disposition: Home or Self Care 05/31/2024 2:00 PM CDT Office Visit Department of Cardiovascular Medicine in [place], [place] [address] [place] [address] Derrick Malloy Jr., M.D. [address] [place] [phone] documented as of this encounter Visit Diagnoses Not on filedocumented in this encounter
--- OUTSIDE RECORDS SUMMARY | 2024-05-11 03:37 | XMS_ITS | Encounter Summary ---
Author Organization [facility] Address [address] [place] [address] Care Team Providers Care Exploration Geologist Name Role Phone Unavailable Primary Care Provider Unavailabl e Encounter Details Date Type Department Care Team (Latest Contact Info) Description 05/04/2024 10:33 AM CDT - 05/04/2024 11:59 PM CDT Hospital Encounter Department of Laboratory Medicine and Pathology, [facility], in [place], [place] [address] [place] [address] Misael Dos Santos M.D. [address] [place] [address] Mass Kidney Discharge Disposition: Home or Self Care Social [...] has e electric, gas, oil, or water [employer] threatened to shut off services in your [...] and Family Twice a week 05/16/2019 Attends [employer] More than 4 times per year [...] and heating? Not hard at all 02/25/2023 [facility] - Occupational [...] your living situation today? I have a [facility] place to live 03/04/2024 Education [...] Appointment Department of Laboratory Medicine and Pathology, [facility], in [place], [place] [address] [place] [phone] Lisandro Borja M.D. [address] [place] [phone] 05/14/2024 11:00 AM CDT Procedure visit Department of Urology in [place], [place] [address] [place] [phone] Lisandro Borja M.D. [address] [place] [phone] 05/14/2024 11:30 AM CDT Office Visit Department of Urology in [place], [place] [address] [place] [phone] Lisandro Borja M.D. [address] [place] [phone] 05/30/2024 2:55 PM CDT Appointment Department of Cardiovascular Diseases in [address] [phone] Derrick Malloy Jr., M.D. [address] [place] [phone] Discharge Disposition: Home or Self Care 05/31/2024 2:00 PM CDT Office Visit Department of Cardiovascular Medicine in [place], [place] [address] [place] [phone] Derrick Malloy Jr., M.D. [address] [place] [phone] documented as of this encounter Procedures Procedure Name Priority Date/Time Associated Diagnosis Comments DIPSTICK, U Routine 05/04/2024 11:08 AM CDT MICROSCOPIC AUTOMATED Routine 05/04/2024 11:08 AM CDT PH, U Routine 05/04/2024 11:08 AM CDT OSMOLALITY, U Routine 05/04/2024 11:08 AM CDT URINALYSIS WITH MICROSCOPIC Routine 05/04/2024 11:08 AM CDT Mass Kidney documented in this encounter Results * Dipstick, Urine (05/04/2024 11:08 AM CDT) Hemoglobin, QL, U Negative Negative 05/04/2024 12:20 PM CDT DTL Leukocyte Esterase, U Negative Negative 05/04/2024 12:20 PM CDT DTL Nitrite, U Negative Negative 05/04/2024 12:20 PM CDT DTL Ketone, U Negative Negative mg/dL 05/04/2024 12:20 PM CDT DTL Glucose, U Negative Negative mg/dL 05/04/2024 12:20 PM CDT DTL Urine 05/04/2024 11:0 8 AM CDT 05/04/2024 11:59 AM CDT Misael Dos Santos M.D. LAB URINE ORDERABLES Performing Organization Address City/[facility]/ZIP Co de Phone Number [facility] 200 [place] [address], [facility] 200 [place] [address] * Osmolality, Urine (05/04/2024 11:08 AM CDT) Osmolality, U 442 150 - 1150 mOsm/kg 05/04/2024 12:31 PM CDT DTL Urine 05/04/2024 11:0 8 AM CDT 05/04/2024 11:59 AM CDT Misael Dos Santos M.D. LAB URINE ORDERABLES [facility] 200 [place], [place] [phone] [place] [address] 200 [place] [address] * pH, Urine (05/04/2024 11:08 AM CDT) pH, U 6.8 4.5 - 8.0 05/04/2024 12: 31 PM CDT DTL Urine 05/04/2024 11:0 8 AM CDT 05/04/2024 11:59 AM CDT Misael Dos Santos M.D. LAB URINE ORDERABLES Performing Organization Address City/[facility]/ZIP Co de Phone Number [facility] 200 [place], [place] [phone] [place] [address] 200 [place] [address] * Microscopic Automated (05/04/2024 11:08 AM CDT) Pathologist [facility] Microscopy Normal 05/04/2024 12:20 PM CDT DTL RBC None Seen <3 /hpf 05/04/2024 12:20 PM CDT DTL WBC None Seen /hpf 05/04/2024 12:20 PM CDT DTL Comment: ----REFERENCE VALUE---- <4 ??(Males) <11 (Females) Urine 05/04/2024 11:0 8 AM CDT 05/04/2024 11:59 AM CDT Misael Dos Santos M.D. LAB URINE ORDERABLES Performing Organization Address City/[facility]/ZIP Co de Phone Number [facility] 200 [place] [address], [facility] 200 [place] [address] * Urinalysis, with Microscopic: Urine, Midstream (05/04/2024 11:08 AM CDT) Source Urine, Urine, Midstream 05/04/2024 11:59 AM CDT DTL Color, U Yellow 05/04/2024 11:59 AM CDT DTL Clarity, U Clear 05/04/2024 11:59 AM CDT DTL Protein, U 5 <26 mg/dL 05/04/2024 12:52 PM CDT DTL Protein/Osmol ality 0.11 <0.42 ratio 05/04/2024 12:52 PM CDT DTL Predicted 24 HR Protein, U 92 <229 mg/24 h 05/04/2024 12:52 PM CDT DTL Predicted Range 23-374 mg/24 h 05/04/2024 12:52 PM CDT DTL Urine (Urine, Midstream) 05/04/2024 11:08 AM CDT 05/04/2024 11:59 AM CDT Misael Dos Santos M.D. LAB URINE ORDERABLES [facility] [address] [place] [address], [facility] DTL [facility] [address] [place] [address] documented in this encounter Visit Diagnoses Diagnosis Mass Kidney documented in this encounter
--- OUTSIDE RECORDS SUMMARY | 2024-05-11 03:37 | XMS_ITS | Encounter Summary ---
Author Organization [facility] Address 200 [place] [address] Care Team Providers Care Livestock Feeder Name Role Phone Unavailable Primary Care Provider Unavailabl e Reason for Referral * MRI/CAT/PET Scan (Routine) - Closed Specialty Diagnoses / Procedures Referred By Contac t Referred To Contact Radiology Diagnoses Hematuria Gross Mass Kidney Procedures CT Urogram without and with IV Contrast Lisandro Borja M.D. 200 [place] [address] [facility] Region Referral ID Status Reason Start Date Expiration Date Visits Re quested Visits Authorized [id number] Closed 05/04/2024 05/04/2025 1 1 Reason for Visit * MRI/CAT/PET Scan (Routine) - Closed Specialty Diagnoses / Procedures Referred By Conthelena galloway Referred To Contact Radiology Diagnoses Hematuria Gross Mass Kidney Procedures CT Urogram without and with IV Contrast Lisandro Borja M.D. 200 [place] [address] [facility] Region Referral ID Status Reason Start Date Expiration Date Visits Re quested Visits Authorized [id number] Closed 05/04/2024 05/04/2025 1 1 Encounter Details Date Type Department Care Team (Latest Contact Info) Description 05/07/2024 8:36 AM CDT - 05/07/2024 11:59 PM CDT Hospital Encounter Department of Radiology in [address] [phone] Lisandro Borja M.D. [address] [place] [address] Hematuria Gross; Mass Kidney Discharge Disposition: Home or Self Care Social History Tobacco Use Types Packs/Day Years Used Date Smoking Tobacco: Former Cigarettes Smokeless Tobacco: Never Comments:Smoked socially for about 2 years while in teens Alcohol Use Standard Drinks/Week Comments Yes 0 (1 standard drink = 0.6 oz pur e alcohol) occ. social drink [facility] Utilities Answer Date Recorded In the past [...] and heating? Not hard at all 02/25/2023 [facility] Stress Questionnaire Answer Date [...] Appointment Department of Laboratory Medicine and Pathology, [facility] in [place], [place] [address] [place] [address] Lisandro Borja M.D. [address] [place] [phone] 05/14/2024 11:00 AM CDT Procedure visit Department of Urology in [place], [place] [address] [place] [phone] Lisandro Borja M.D. [address] [place] [phone] 05/14/2024 11:30 AM CDT Office Visit Department of Urology in [place], [place] [address] [place] [address] Lisandro Borja M.D. [address] [place] [address] 05/30/2024 2:55 PM CDT Appointment Department of Cardiovascular Diseases in [place], [place] [address] [place] [address] Derrick Malloy Jr., M.D. [address] [place] [phone] Discharge Disposition: Home or Self Care 05/31/2024 2:00 PM CDT Office Visit Department of Cardiovascular Medicine in [place], [place] [address] [place] [phone] Derrick Malloy Jr., M.D. [address] [place] [address] documented as of this encounter Procedures Procedure Name Priority Date/Time Associated Diagnosis Comments CT UROGRAM WITHOUT AND WITH IV CONTRAST RAD - Routine (most inpatients and all outpatients) 05/07/2024 9:24 AM CDT Hematuria Gross Mass Kidney documented in this encounter Results * CT Urogram without [...] arthrosis. Procedure Note Amilcar Iqbal M.D. - 09/23/2024 EXAM: CT UROGRAM WITHOUT AND WITH IV [...] x 1.5 x 1.3 cm in size ([id number], image #162; series 14, image 87). Distal [...] documented in this encounter Visit Diagnoses Diagnosis Hematuria Gross Mass Kidney documented in this encounter Administered Medications Inactive Administered Medications - up to 3 most recent administrations Medication Order MAR Action Action Date Dose Rate Site iohexoL 300 mg iodine/mL solution 140 mL (Omnipaque) 140 mL, intravenous, Once in imaging, contrast, Starting on Tue05/07/24 at 0839, For 1 dose Given 05/07/2024 9:03 AM CDT 140 mL NaCl 0.9 % bolus 190 mL 190 mL, intravenous, at 190 mL/hr, Administer over 1 Hours, Once, On Tue05/07/24 at 0900, For 1 dose New Bag 05/07/2024 9:03 AM CDT 190 mL 190 mL/hr sodium chloride 0.9 % injection 10 mL 10 mL, intravenous, Once, On Tue05/07/24 at 0900, For 1 dose Given 05/07/2024 9:03 AM CDT 10 mL documented in this encounter
--- OUTSIDE RECORDS SUMMARY | 2024-05-11 03:37 | XMS_ITS ---
Author Organization [facility] Address [address] [place] [address] Care Team Providers Care Disease And Insect Control Boss Name Role Phone Unavailable Unavailable Unavailable Surgery Details Not on file Complications Check Surgery Details section. Procedure Estimated Blood Loss Check Surgery Details section. Procedure Findings Check Surgery Details section. Procedure Specimens Taken Check Surgery Details section.
--- OUTSIDE RECORDS SUMMARY | 2024-05-11 03:37 | XMS_ITS | Encounter Summary ---
Author Organization [facility] Address [address] [place] [address] Care Team Providers Care Ham Smoker Name Role Phone Unavailable Primary Care Provider Unavailabl e Reason for Visit * Reason Onset Date Comments CT Urogram results 05/07/2024 Encounter Details Date Type Department Care Team (Latest Contact Info) Description 05/07/2024 Clinical Communication Department of Urology in [place], [place] [address] [place] [address] Lisandro Borja M.D. [address] [place] [address] CT Urogram results Social History Tobacco Use Types Packs/Day Years [...] and Family Twice a week 05/16/2019 Attends [employer] More than 4 times per year [...] heating? Not hard at all 02/25/2023 [facility] [...] Appointment Department of Laboratory Medicine and Pathology, [facility] in [place], [place] [address] [place] [address] Lisandro Borja M.D. [address] [place] [phone] 05/14/2024 11:00 AM CDT Procedure visit Department of Urology in [place], [place] [address] [place] [phone] Lisandro Borja M.D. [address] [place] [phone] 05/14/2024 11:30 AM CDT Office Visit Department of Urology in [place], [place] [address] [place] [address] Lisandro Borja M.D. [address] [place] [phone] 05/30/2024 2:55 PM CDT Appointment Department of Cardiovascular Diseases in [place], [place] [address] [place] [address] Derrick Malloy Jr., M.D. [address] [place] [phone] Discharge Disposition: Home or Self Care 05/31/2024 2:00 PM CDT Office Visit Department of Cardiovascular Medicine in [place], [place] [address] [place] [address] Derrick Malloy Jr., M.D. [address] [place] [phone] documented as of this encounter Visit Diagnoses Not on filedocumented in this encounter
--- OUTSIDE RECORDS SUMMARY | 2024-05-11 03:37 | XMS_ITS | Encounter Summary ---
Author Organization [facility] Address [address] [place] [address] Care Team Providers Care Bleach Boiler Packer Name Role Phone Unavailable Primary Care Provider Unavailabl e Encounter Details Date Type Department Care Team (Latest Contact Info) Description 05/04/2024 10:33 AM CDT - 05/04/2024 11:59 PM CDT Hospital Encounter Department of Laboratory Medicine and Pathology, [facility], in [place], [place] [address] [place] [address] Misael Dos Santos M.D. [address] [place] [address] Mass Kidney Discharge Disposition: Home or Self [...] has e electric, gas, oil, or water [employer] threatened to shut off services in your [...] and heating? Not hard at all 02/25/2023 [facility] - Occupational [...] your living situation today? I have a [facility] place to live 03/04/2024 Education Answer Date [...] Appointment Department of Laboratory Medicine and Pathology, [facility], in [place], [place] [address] [place] [phone] Lisandro Borja M.D. [address] [place] [phone] 05/14/2024 11:00 AM CDT Procedure visit Department of Urology in [place], [place] [address] [place] [phone] Lisandro Borja M.D. [address] [place] [phone] 05/14/2024 11:30 AM CDT Office Visit Department of Urology in [place], [place] [address] [place] [phone] Lisandro Borja M.D. [address] [place] [phone] 05/30/2024 2:55 PM CDT Appointment Department of Cardiovascular Diseases in [address] [phone] Derrick Malloy Jr., M.D. [address] [place] [phone] Discharge Disposition: Home or Self Care 05/31/2024 2:00 PM CDT Office Visit Department of Cardiovascular Medicine in [place], [place] [address] [place] [phone] Derrick Malloy Jr., M.D. [address] [place] [phone] documented as of this encounter Procedures Procedure Name Priority Date/Time Associated Diagnosis Comments ELECTROLYTE (CHEM 4) PANEL, S/P Routine 05/04/2024 11:02 AM CDT Mass Kidney CBC WITH DIFFERENTIAL, B Routine 024 11:02 AM CDT Mass Kidney BUN (BLOOD UREA NITROGEN), S/P Routine 05/04/2024 11:02 AM CDT Mass Kidney ALANINE AMINOTRANSFERASE (ALT), S/P Routine 05/04/2024 11:02 AM CDT Mass Kidney ASPARTATE AMINOTRANSFERASE (AST), S/P Routine 05/04/2024 11:02 AM CDT Mass Kidney ALKALINE PHOSPHATASE, S/P Routine 05/04/2024 11:02 AM CDT Mass Kidney CREATININE WITH EGFR, S/P Routine 05/04/2024 11:02 AM CDT Mass Kidney CALCIUM, TOT, S/P Routine 05/04/2024 11: 02 AM CDT Mass Kidney documented in this encounter Results * (ABNORMAL) Alkaline Phosphatase (05/04/2024 11:02 AM CDT) Alkaline Phosphatase, S 115(H) 35 - 104 U/L 05/04/2024 1:15 PM CDT DTL Blood (Blood, Venous) 05/04/2024 11:02 AM CDT 05/04/2024 11:38 AM CDT Misael Dos Santos M.D. LAB BLOOD ADD-ON [facility] [address] [place] [address], [facility] [address] [place] [address] * (ABNORMAL) ALT (Alanine Aminotransferase) (05/04/2024 11:02 AM CDT) Alanine Aminotransferase (ALT), S 49(H) 7 - 45 U/L 05/04/2024 1:15 PM CDT DTL Blood (Blood, Venous) 05/04/2024 11:02 AM CDT 05/04/2024 11:38 AM CDT Misael Dos Santos M.D. LAB BLOOD ADD-ON [facility] [address] [place], [place] [phone] [place] [address] [address] [place] [address] * (ABNORMAL) AST (Aspartate Aminotransferase) (05/04/2024 11:02 AM CDT) Aspartate Aminotransferase (AST), S 50(H) 8 - 43 U/L 05/04/2024 1:15 PM CDT DTL Blood (Blood, Venous) 05/04/2024 11:02 AM CDT 05/04/2024 11:38 AM CDT Misael Dos Santos M.D. LAB BLOOD ADD-ON Performing Organization Address City/[facility]/ZIP Co de Phone Number [facility] [address] [place], [place] [phone] [place] [address] 200 [place] [address] * Calcium, Total (05/04/2024 11:02 AM CDT) Calcium, Total, S 9.6 8.8 - 10.2 mg/dL 05/04/2024 1:15 PM CDT DTL Blood (Blood, Venous) 05/04/2024 11:02 AM CDT 05/04/2024 11:38 AM CDT Misael Dos Santos M.D. LAB BLOOD ADD-ON [facility] [address] [place] [address] [address] [place] [address] * CBC with Differential, Blood (05/04/2024 11:02 AM CDT) Hemoglobin 13.4 11.6 - 15.0 g/dL 05/04/2024 11:31 AM CDT DTL Hematocrit 40.8 35.5 - 44.9 % 05/04/2024 11:31 AM CDT DTL Erythrocytes 4.50 3.92 - 5.13 x10(12)/L 05/04/2024 11:31 AM CDT DTL MCV 90.7 78.2 - 97.9 fL 05/04/2024 11:31 AM CDT DTL RBC Distrib Width 12.9 12.2 - 16.1 % 05/04/2024 11:31 AM CDT DTL Platelet Count 213 157 - 371 x10(9)/L 05/04/2024 11:31 AM CDT DTL Leukocytes 5.3 3.4 - 9.6 x10(9)/L 05/04/2024 11:31 AM CDT DTL Neutrophils 3.19 1.56 - 6.45 x10(9)/L 05/04/2024 11:31 AM CDT [facility] Lymphocytes 1.46 0.95 - 3.07 x10(9)/L 05/04/2024 11:31 AM CDT DTL Monocytes 0.53 0.26 - 0.81 x10(9)/L 05/04/2024 11:31 AM CDT DTL Eosinophils 0.06 0.03 - 0.48 x10(9)/L 05/04/2024 11:31 AM CDT DTL Basophils <0.03 0.01 - 0.08 x10(9)/L 05/04/2024 11:31 AM CDT DTL Blood (Blood, Venous) 05/04/2024 11:02 AM CDT 05/04/2024 11:24 AM CDT Misael Dos Santos M.D. LAB BLOOD ADD-ON [facility] [address] [place] [address], [facility] DTL [facility] [address] [place] [address] [facility] [address] [place] [address] * Creatinine with Estimated GFR (05/04/2024 11:02 AM CDT) Creatinine 0.82 0.59 - 1.04 mg/dL 05/04/2024 1:15 PM CDT DTL Estimated GFR (eGFR) 73 >=60 mL/min/BSA 05/04/2024 1:15 PM CDT DTL Comment: Estimated GFR calculated using the 2020 CKD_EPI creatinine equation. Blood (Blood, Venous) 05/04/2024 11:02 AM CDT 05/04/2024 11:38 AM CDT Misael Dos Santos M.D. LAB BLOOD ADD-ON [facility] [address] [place], [place] [address] [address] [place] [address] * BUN (Blood Urea Nitrogen) (05/04/2024 11:02 AM CDT) BUN (Blood Urea Nitrogen), S 14 6 - 21 mg/dL 05/04/2024 1:15 PM CDT DTL Blood (Blood, Venous) 05/04/2024 11:02 AM CDT 05/04/2024 11:38 AM CDT Misael Dos Santos M.D. LAB BLOOD ADD-ON [facility] [address] [place], [place] [address] [address] [place] [address] * Electrolyte (Chem 4) Panel (05/04/2024 11:02 AM CDT) Sodium, S 138 135 - 145 mmol/L 05/04/2024 1:15 PM CDT DTL Potassium, S 4.2 3.6 - 5.2 mmol/L 05/04/2024 1:15 PM CDT DTL Chloride, S 101 98 - 107 mmol/L 05/04/2024 1:15 PM CDT DTL Bicarbonate, S 28 22 - 29 mmol/L 05/04/2024 1:15 PM CDT DTL Anion Gap 9 7 - 15 05/04/2024 1:15 PM CDT DTL Blood (Blood, Venous) 05/04/2024 11:02 AM CDT 05/04/2024 11:38 AM CDT Misael Dos Santos M.D. LAB BLOOD ADD-ON [facility] [address] [place] [address], [facility] DTL [facility] [address] [place] [address] documented in this encounter Visit Diagnoses Diagnosis Mass Kidney documented in this encounter
--- OUTSIDE RECORDS SUMMARY | 2024-05-11 03:37 | XMS_ITS | Referral Summary ---
Author Organization [facility] Address [address] [place] [address] Care Team Providers Care Operator Automated Process Name Role Phone Unavailable Primary Care Provider Unavailabl e Source Comments Patient records contain information from all sites at [facility]. For routine questions regarding patient records, call [phone] during business hours, M-F 8:00 AM - 5:00 PM Central Time. Record requests for emergency care only can be directed to [phone] at any time.[facility] Encounters Date Type Department Care Team Description 05/07/2024 Clinical Communication Department of Urology in [place], [place] [address] [place] [address] Urogram results 05/07/2024 8:36 AM CDT - 05/07/2024 11:59 PM CDT Hospital Encounter Department of Radiology in [address] [phone] Lisandro Borja M.D. Hematuria Gross; Mass Kidney Discharge Disposition: Home or Self Care 05/04/2024 Clinical Communication Department of Urology in [place], [place] [address] [place] [address] Lisandro Borja M.D. After Visit Questions 05/04/2024 10:33 AM CDT - 05/04/2024 11:59 PM CDT Hospital Encounter Department of Laboratory Medicine and Pathology, [facility], in [place], [place] [address] [place] [address] Misael Dos Santos M.D. Mass Kidney Discharge Disposition: Home or Self Care 05/04/2024 10:33 AM CDT - 05/04/2024 11:59 PM CDT Hospital Encounter Department of Laboratory Medicine and Pathology, [facility] in [place], [place] [address] [place] [address] Misael Dos Santos M.D. Mass Kidney Discharge Disposition: Home or Self Care 05/04/2024 1:00 PM CDT Comprehensive Visit Department of Urology in [place], [place] [address] [place] [phone] Lisandro Borja M.D. Kidney And Ureter Disorder (Primary Dx); Hematuria Gross; Mass Kidney 04/24/2024 Clinical Communication Department of Urology in [address] [phone] Provider, Unknown [facility] - Outside Materials (Urology) 04/24/2024 Clinical Communication Department of Urology in [place], [place] [address] [place] [phone] Lisandro Borja M.D. Pre-visit Testing Orders 03/13/2024 Clinical Communication Department of Cardiovascular Medicine in [place], [place] [address] [place] [phone] Derrick Malloy Jr., M.D. Appt Request 03/12/2024 Clinical Communication Department of Cardiovascular Medicine in [place], [place] [address] [place] [phone] Derrick Malloy Jr., M.D. 03/12/2024 Documentation Department of Cardiovascular Medicine in [place], [place] [address] [place] [phone] Derrick Malloy Jr., M.D. 03/09/2024 Clinical Communication Department of Cardiovascular Medicine in [place], [place] [address] [place] [address] Derrick Malloy Jr., M.D. Return Call Request (Dr. Kendrick from [facility] is out of the office until Tuesday.) 03/08/2024 9:53 AM CDT - 03/08/2024 12:10 PM CDT Hospital Encounter Department of Laboratory Medicine and Pathology, [facility] in [place], [place] [address] [place] [phone] Shoshana Araujo APRN, C.N.P., M.S.N. Replacement Aortic Valve Tissue Discharge Disposition: Home or Self Care 03/08/2024 12:11 PM CDT - 03/08/2024 11:59 PM CDT Hospital Encounter Department of Cardiovascular Diseases in [place], [place] [address] [place] [phone] Shoshana Araujo APRN, C.N.Margi, M.S.N. Replacement Aortic Valve Tissue Discharge Disposition: Home or Self Care 03/08/2024 8:39 AM CDT - 03/08/2024 9:52 AM CDT Hospital Encounter Department of Radiology, [facility] in [place], [place] [address] [place] [phone] Shoshana Araujo APRN, C.NRamon., M.S.N. Replacement Aortic Valve Tissue Discharge Disposition: Home or Self Care 03/08/2024 4:00 PM CDT Office Visit Department of Cardiovascular Medicine in [address] [phone] Derrick Malloy Jr., M.D. Stenosis Aortic Valve Acquired (Primary Dx); Prosthesis Aortic Valve; Hypertension Essential Primary; Hyperlipidemia On Treatment; Cancer Breast Personal History 03/06/2024 9:30 AM CDT Clinical Communication Virtual Review in [place], [place] 200 [place] [address] Previsit Preparation from Last 3 Months Allergies [...] Treatment 04/29/2022 Atherosclerotic Heart Diseas e Of [place] Coronary Artery Without Angina Pectoris 04/29/2022 Hypertension Essential Primary 04/29/2022 Assessment & Plan (04/29/2022 1:41 PM CDT): Mrs. Diaz is a very pleasant 77-year-old female who was seen in the [facility] for a 1 year follow up of aortic stenosis. She has been doing well over the past year from a heart standpoint. She denies any new cardiopulmonary symptoms today. She continues to be very physically active with walking 2 days a week, playing bocce ball 1 day a week, and golfing [...] oz pur e alcohol) occ. social drink [facility] Utilities Answer Date Recorded In the past 12 months has e [employer], gas, oil, or water [employer] threatened to shut off services in your [...] and heating? Not hard at all 02/25/2023 [facility] - [...] your living situation today? I have a [facility] place to live 03/04/2024 Education Answer [...] Appointment Department of Laboratory Medicine and Pathology, [facility] in [place], [place] [address] [place] [phone] Lisandro Borja M.D. 200 [place] [phone] 05/14/2024 11:00 AM CDT Procedure visit Department of Urology in [place], [place] [address] [place] [phone] Lisandro Borja M.D. [address] [place] [phone] 05/14/2024 11:30 AM CDT Office Visit Department of Urology in [place], [place] [address] [place] [phone] Lisandro Borja M.D. [address] [place] [phone] 05/30/2024 2:55 PM CDT Appointment Department of Cardiovascular Diseases in [address] [phone] Derrick Malloy Jr., M.D. [address] [place] [phone] Discharge Disposition: Home or Self Care 05/31/2024 2:00 PM CDT Office Visit Department of Cardiovascular Medicine in [place], [place] [address] [place] [phone] Derrick Malloy Jr., M.D. [address] [place] [phone] Medical Devices Implanted Type Area Electric Meter Installer Device Identifier Shelf Expiration Date Model / Serial / Lot Breast Implant Breast Implant Bilateral : Breast Vlv Dayan S3 Ultra 23 - [id number] - [id number] Implanted:Qty : 1 on 03/07/2023 by Carrington Castillo M.D., Ph.D. at [facility] Cardiac Valve Prosthesis N/A: Heart [employer] 06/16/2025 [id number] / [id number] / Description:Aortic Valve Ocular Lens Ocular Lens Bilateral : Eye Procedures Procedure Name Priority Date/Time Associated Diagnosis Comments CT UROGRAM WITHOUT AND WITH IV CONTRAST RAD - Routine (most inpatients and all outpatients) 05/07/2024 9:24 AM CDT Hematuria Gross Mass Kidney DIPSTICK, U Routine 05/04/2024 11:08 AM CDT OSMOLALITY, U Routine 05/04/2024 11:08 AM CDT PH, U Routine 05/04/2024 11:08 AM CDT MICROSCOPIC AUTOMATED Routine 05/04/2024 11:08 AM CDT URINALYSIS WITH MICROSCOPIC Routine 05/04/2024 11:08 AM CDT Mass Kidney ALKALINE PHOSPHATASE, S/P Routine 05/04/2024 11:02 AM CDT Mass Kidney ALANINE AMINOTRANSFERASE (ALT), S/P Routine 05/04/2024 11:02 AM CDT Mass Kidney ASPARTATE AMINOTRANSFERASE (AST), S/P Routine 05/04/2024 11:02 AM CDT Mass Kidney CALCIUM, TOT, S/P Routine 05/04/2024 11:02 AM CDT Mass Kidney CBC WITH DIFFERENTIAL, B Routine 05/04/2024 11:02 AM CDT Mass Kidney CREATININE WITH EGFR, S/P Routine 05/04/2024 11:02 AM CDT Mass Kidney BUN (BLOOD UREA NITROGEN), S/P Routine 05/04/2024 11:02 AM CDT Mass Kidney ELECTROLYTE (CHEM 4) PANEL, S/P Routine 05/04/2024 11:02 AM CDT Mass Kidney OUTSIDE CT BODY Routine 04/13/2024 8:[address] BODY Routine 04/10/2024 5:30 PM CDT (TTE) 2D ECHO DOPPLER COLOR Routine 03/08/2024 [...] Tissue from Last 3 Months Results * CT Urogram without and with [...] x 1.5 x 1.3 cm in size ([id number], image #162; series 14, image 87). Distal [...] Normal-appearing left renal artery and vein. Lisandro Borja M.D. IMG CT PROCEDURES * Dipstick, Urine (05/04/2024 11:08 AM CDT) [facility] Hemoglobin, QL, U Negative Negative 05/04/2024 12:20 [...] Misael Dos Santos M.D. LAB URINE ORDERABLES [facility] [address] [place] [address], [facility] [address] [place] [address] * Microscopic Automated (05/04/2024 11:08 AM CDT) [facility] Microscopy Normal 05/04/2024 12:20 PM CDT DTL RBC None Seen <3 /hpf 05/04/2024 12:20 PM CDT DTL WBC None Seen /hpf 05/04/2024 12:20 PM CDT DTL Comment: ----REFERENCE VALUE---- <4 ??(Males) <11 (Females) Urine 05/04/2024 11:0 8 AM CDT 05/04/2024 11:59 AM CDT Misael Dos Santos M.D. LAB URINE ORDERABLES [facility] [address] [place] [address] * pH, Urine (05/04/2024 11:08 AM CDT) pH, U 6.8 4.5 - 8.0 05/04/2024 12: 31 PM CDT DT Urine 05/04/2024 11:0 8 AM CDT 05/04/2024 11:59 AM CDT Misael Dos Santos M.D. LAB URINE ORDERABLES Performing Organization Address City/[facility]/ZIP Co de Phone Number [facility] [address] [place], [place] [phone] [place] [address] [address] [place] [address] * Osmolality, Urine (05/04/2024 11:08 AM CDT) Osmolality, U 442 150 - 1150 mOsm/kg 05/04/2024 12:31 PM CDT DT Urine 05/04/2024 11:0 8 AM CDT 05/04/2024 11:59 AM CDT Misael Dos Santos M.D. LAB URINE ORDERABLES [facility] [address] [place] [address], [place] DTL [facility] [address] [place] [address] * Urinalysis, with Microscopic: Urine, Midstream (05/04/2024 [...] Misael Dos Santos M.D. LAB URINE ORDERABLES [facility] [address] [place] [address], [address] [address] * Electrolyte (Chem 4) Panel (05/04/2024 11:02 [...] 11:02 AM CDT 05/04/2024 11:38 AM CDT Miseal Dos Santos M.D. LAB BLOOD ADD-ON [facility] [address] [place] [address], [facility] DTL [facility] [address] [place] [address] * CBC with Differential, Blood (05/04/2024 11:02 AM CDT) Only the most recent of2 resultswithin the time period is included. Hemoglobin 13.4 11.6 - 15.0 g/dL 05/04/2024 [...] - 6.45 x10(9)/L 05/04/2024 11:31 AM CDT DHPM Lymphocytes 1.46 0.95 - 3.07 x10(9)/L 05/04/2024 11:31 AM CDT DTL Monocytes 0.53 0.26 - 0.81 x10(9)/L 05/04/2024 11:31 AM CDT DTL Eosinophils 0.06 0.03 - 0.48 x10(9)/L 05/04/2024 11:31 AM CDT DTL Basophils <0.03 0.01 - 0.08 x10(9)/L 05/04/2024 11:31 AM CDT DTL Blood (Blood, Venous) 05/04/2024 11:02 AM CDT 05/04/2024 11:24 AM CDT Misael Dos Santos M.D. LAB BLOOD ADD-ON [facility] [address] [place] [address] * BUN (Blood Urea Nitrogen) (05/04/2024 11:02 AM CDT) BUN (Blood Urea Nitrogen), S 14 6 - 21 mg/dL 05/04/2024 1:15 PM CDT DTL Blood (Blood, Venous) 05/04/2024 11:02 AM CDT 05/04/2024 11:38 AM CDT Misael Dos Santos M.D. LAB BLOOD ADD-ON [facility] [address] [place], [place] [phone] [place] [address] [address] [place] [address] * (ABNORMAL) ALT (Alanine Aminotransferase) (05/04/2024 11:02 AM CDT) Alanine Aminotransferase (ALT), S 49(H) 7 - 45 U/L 05/04/2024 1:15 PM CDT DTL Blood (Blood, Venous) 05/04/2024 11:02 AM CDT 05/04/2024 11:38 AM CDT Misael Dos Santos M.D. LAB BLOOD ADD-ON [facility] [address] [place] [address], [place] DTL [address] [address] * (ABNORMAL) AST (Aspartate Aminotransferase) (05/04/2024 11:02 AM CDT) Aspartate Aminotransferase (AST), S 50(H) 8 - 43 U/L 05/04/2024 1:15 PM CDT DTL Blood (Blood, Venous) 05/04/2024 11:02 AM CDT 05/04/2024 11:38 AM CDT Misael Dos [place] [address] * (ABNORMAL) Alkaline Phosphatase (05/04/2024 11:02 AM CDT) Alkaline Phosphatase, S 115(H) 35 - 104 U/L 05/04/2024 1:15 PM CDT DTL Blood (Blood, Venous) 05/04/2024 11:02 AM CDT 05/04/2024 11:38 AM CDT Misael Dos Santos [place] [address] * Creatinine with Estimated GFR (05/04/2024 11:02 AM CDT) Only the most recent of2 resultswithin the time period is included. Creatinine 0.82 0.59 - 1.04 mg/dL 05/04/2024 1:15 PM CDT DTL Estimated GFR (eGFR) 73 >=60 mL/min/BSA 05/04/2024 1:15 PM CDT DTL Comment: Estimated GFR calculated using the 2020 CKD_EPI creatinine equation. Blood (Blood, Venous) 05/04/2024 11:02 AM CDT 05/04/2024 11:38 AM CDT Misael Dos Santos M.D. LAB BLOOD ADD-ON Performing Organization Address City/[facility] Co de Phone Number [facility] [address] [place] [address] * Calcium, Total (05/04/2024 11:02 AM CDT) Calcium, Total, S 9.6 8.8 - 10.2 mg/dL 05/04/2024 1:15 PM CDT DT Blood (Blood, Venous) 05/04/2024 11:02 AM CDT 05/04/2024 11:38 AM CDT Misael Dos Santos M.D. LAB BLOOD ADD-ON Performing Organization Address [facility] de Phone Number [facility] [address] [place] [address] * CT ABDOMEN PELVIS WO CON-Outside CT Body (04/13/2024 8:35 AM CDT) Only the most recent of2 resultswithin the time period is included. Narrative IIMS - 04/26/2024 2:49 AM CDT This order has been created and auto-finalized to support the import of outside images. If available, original interpretation can be found on the Media Tab in Chart Review, in Document Viewer, as an image in QREADS or as an Addendum. If a re-interpretation or overread is required please follow defined workflow.?? Provider Not In System IMG CT PROCEDURES Performing Organization Address City/[facility] Co de Phone Number IIMS NA * (TTE) 2D ECHO DOPPLER COLOR (03/08/2024 [...] M.S.N. LAB BLOOD ADD-ON Performing Organization Address [facility] de Phone Number [facility] [address] [facility] [address] [place] [address] * Prothrombin Time (PT) (03/08/2024 10:30 AM [...] BLOOD ADD-ON Performing Organization Address City/[facility] Co de Phone Number [facility] [address] [place], [place] [phone] [place] [address] [facility] [address] [place] [address] * Sodium (03/08/2024 10:30 AM CDT) Pathologist [facility] Sodium, S 141 135 - 145 mmol/L 03/08/2024 12:04 PM CDT DTL Blood (Blood, Venous) 03/08/2024 10:30 AM CDT 03/08/2024 11:09 AM CDT Shoshana Araujo APRN, C.N.P., M.S.N. LAB BLOOD ADD-ON [facility] [address] [place] [address], [facility] [address] [place] [address] * Potassium (03/08/2024 10:30 AM CDT) Potassium, S 4.6 3.6 - 5.2 mmol/L 03/08/2024 12:04 PM CDT DTL Blood (Blood, Venous) 03/08/2024 10:30 AM CDT 03/08/2024 11:09 AM CDT Shoshana Araujo APRN, C.N.P., M.S.N. LAB BLOOD ADD-ON Performing Organization Address City/[facility]/ZIP Co de Phone Number [facility] [address] [place], [place] [address] [address] [place] [address] * Glucose, Fasting (03/08/2024 10:30 AM CDT) Glucose, P 87 70 - 100 mg/dL 03/08/2024 11:27 AM CDT DTL Last Intake 17 hr 03/08/2024 11:09 AM CDT DTL Blood (Blood, Venous) 03/08/2024 10:30 AM CDT 03/08/2024 11:09 AM CDT Shoshana Araujo APRN, C.N.P., M.S.N. LAB BLOOD NON ADD-ON Performing Organization Address City/[facility]/ZIP Co de Phone Number [facility] [address] [place] [address], [facility] [address] [place] [address] * Albumin (03/08/2024 10:30 AM CDT) Albumin, S 4.2 3.5 - 5.0 g/dL 03/08/2024 12:04 PM CDT DTL Blood (Blood, Venous) 03/08/2024 10:30 AM CDT 03/08/2024 11:09 AM CDT Shoshana Araujo APRN, C.N.P., M.S.N. LAB BLOOD ADD-ON Performing Organization Address [facility] Co de Phone Number [facility] [address] [place] [address], [facility] [address] [place] [address] * ECG 12 Lead (03/08/2024 9:07 AM CDT) Pathologist [facility] Ventricular Rate ECG/Min 62 BPM MUSE NM Interval 192 ms MUSE QRSD Interval 78 ms MUSE QT Interval 418 ms MUSE QTC Interval 424 ms MUSE P [place] 24 degrees MUSE R [place] -5 degrees MUSE T Wave [place] 50 degrees MUSE 03/08/2024 9:07 AM CDT [...] C.N.P., M.S.N. ECG ORDERABLES Performing Organization Address [facility] Co de Phone Number MUSE NA * [...] of the ascending thoracic aorta, 40 mm (vyur-sy-njuv double oblique and series 1000). Postoperative changes [...] dilatation of the ascending thoracic aorta, 40 mm(efet-qs-[id number] double oblique and series 1000). Postoperative changes [...] Advance Directives For more information, please contact: [phone] * Full Code (Latest Code Status on File) Date Activated Date Inactivated Comments 03/07/2023 11:55 AM 03/08/2023 1:14 PM Question Answer Comments Full Code: Discussed
--- OUTSIDE RECORDS SUMMARY | 2024-05-11 03:37 | XMS_ITS | Encounter Summary ---
Author Organization [facility] Address [address] [place] [address] Care Team Providers Care Supervisor [employer] Name Role Phone Unavailable Primary Care Provider Unavailabl e Reason for Visit * Reason Onset Date Comments After Visit Questions 05/04/2024 Encounter Details Date Type Department Care Team (Latest Contact Info) Description 05/04/2024 Clinical Communication Department of Urology in [place], [place] [address] [place] [address] Lisandro Borja M.D. [address] [place] [address] After Visit Questions Social History Tobacco Use Types Packs/Day Years [...] and Family Twice a week 05/16/2019 Attends [employer] More than 4 times per year [...] and heating? Not hard at all 02/25/2023 [facility] - Occupational Stress [...] your living situation today? I have a [facility] place to live 03/04/2024 Education Answer [...] Appointment Department of Laboratory Medicine and Pathology, [facility] in [place], [place] [address] [place] [address] Lisandro Borja M.D. [address] [place] [phone] 05/14/2024 11:00 AM CDT Procedure visit Department of Urology in [place], [place] [address] [place] [phone] Lisandro Borja M.D. [address] [place] [phone] 05/14/2024 11:30 AM CDT Office Visit Department of Urology in [place], [place] [address] [place] [address] Lisandro Borja M.D. [address] [place] [phone] 05/30/2024 2:55 PM CDT Appointment Department of Cardiovascular Diseases in [place], [place] [address] [place] [address] Derrick Malloy Jr., M.D. [address] [place] [phone] Discharge Disposition: Home or Self Care 05/31/2024 2:00 PM CDT Office Visit Department of Cardiovascular Medicine in [place], [place] [address] [place] [phone] Derrick Malloy Jr., M.D. [address] [place] [phone] documented as of this encounter Visit Diagnoses Not on filedocumented in this encounter
--- OUTSIDE RECORDS SUMMARY | 2024-05-11 03:37 | XMS_ITS | Clinical Summary ---
Author Organization [facility] Address [address] [place] [address] Care Team Providers Care Acoustic Sensor Operator Name Role Phone Unavailable Primary Care Provider Unavailabl e Source Comments Patient records contain information from all sites at [facility]. For routine questions regarding patient records, call [phone] during business hours, M-F 8:00 AM - 5:00 PM Central Time. Record requests for emergency care only can be directed to [phone] at any time.[facility] Allergies Active Allergy Reactions Criticality Noted [...] Treatment 04/29/2022 Atherosclerotic Heart Diseas e Of [place] Coronary Artery Without Angina Pectoris 04/29/2022 Hypertension Essential Primary 04/29/2022 Assessment & Plan (04/29/2022 1:41 PM CDT): Mrs. Diaz is a very pleasant 77-year-old female who was seen in the [facility] for a 1 year follow up of aortic stenosis. She has been doing well over the past year from a heart standpoint. She denies any new cardiopulmonary symptoms today. She continues to be very physically active with walking 2 days a week, playing [employer] ball 1 day a week, and golfing [...] Date Type Department Care Team Description 05/07/2024 8:36 AM CDT - 05/07/2024 11:59 PM CDT Hospital Encounter Department of Radiology in [address] [phone] Lisandro Borja M.D. Hematuria Gross; Mass Kidney Discharge Disposition: Home or Self Care 05/07/2024 Clinical Communication Department of Urology in [place], [place] [address] [place] [phone] Urogram results 05/04/2024 1:00 PM CDT Comprehensive Visit Department of Urology in [place], [place] [address] [place] [phone] Lisandro Borja M.D. Kidney And Ureter Disorder (Primary Dx); Hematuria Gross; Mass Kidney 05/04/2024 10:33 AM CDT - 05/04/2024 11:59 PM CDT Hospital Encounter Department of Laboratory Medicine and Pathology, [facility] in [place], [place] [address] [place] [address] Misael Dos Santos M.D. Mass Kidney Discharge Disposition: Home or Self Care 05/04/2024 10:33 AM CDT - 05/04/2024 11:59 PM CDT Hospital Encounter Department of Laboratory Medicine and Pathology, [facility], in [place], [place] [address] [place] [address] Misael Dos Santos M.D. Mass Kidney Discharge Disposition: Home or Self Care 05/04/2024 Clinical Communication Department of Urology in [place], [place] [address] [place] [phone] Lisandro Borja M.D. After Visit Questions 04/24/2024 Clinical Communication Department of Urology in [address] [phone] Provider, Unknown [facility] - Outside Materials (Urology) 04/24/2024 Clinical Communication Department of Urology in [place], [place] [address] [place] [phone] Lisandro Borja M.D. Pre-visit Testing Orders 03/13/2024 Clinical Communication Department of Cardiovascular Medicine in [place], [place] [address] [place] [phone] Derrick Malloy Jr., M.D. Appt Request 03/12/2024 Clinical Communication Department of Cardiovascular Medicine in [place], [place] [address] [place] [phone] Derrick Malloy Jr., M.D. 03/12/2024 Documentation Department of Cardiovascular Medicine in [place], [place] [address] [place] [phone] Derrick Malloy Jr., M.D. 03/09/2024 Clinical Communication Department of Cardiovascular Medicine in [place], [place] [address] [place] [phone] Derrick Malloy Jr., M.D. Return Call Request (Dr. Kendrick from [place] is out of the office until Tuesday.) 03/08/2024 4:00 PM CDT Office Visit Department of Cardiovascular Medicine in [place], [place] [address] [place] [phone] Derrick Malloy Jr., M.D. Stenosis Aortic Valve Acquired (Primary Dx); Prosthesis Aortic Valve; Hypertension Essential Primary; Hyperlipidemia On Treatment; Cancer Breast Personal History 03/08/2024 12:11 PM CDT - 03/08/2024 11:59 PM CDT Hospital Encounter Department of Cardiovascular Diseases in [place], [place] [address] [place] [phone] Shoshana Araujo APRN, C.N.P., M.S.N. Replacement Aortic Valve Tissue Discharge Disposition: Home or Self Care 03/08/2024 9:53 AM CDT - 03/08/2024 12:10 PM CDT Hospital Encounter Department of Laboratory Medicine and Pathology, [facility] in [place], [place] [address] [place] [phone] Shoshana Araujo APRN, C.N.P., M.S.N. Replacement Aortic Valve Tissue Discharge Disposition: Home or Self Care 03/08/2024 8:39 AM CDT - 03/08/2024 9:52 AM CDT Hospital Encounter Department of Radiology, [facility] in [place], [place] [address] [place] [phone] Shoshana Araujo APRN, C.N.P., M.S.N. Replacement Aortic Valve Tissue Discharge Disposition: Home or Self Care 03/06/2024 9:30 AM CDT Clinical Communication Virtual Review in [place], [place] 200 [place] [address] Previsit Preparation from Last 3 Months Immunizations [...] social drink [facility] Utilities Answer Date Recorded In the past 12 months has e [employer], gas, oil, or water [employer] threatened to shut off services in your [...] heating? Not hard at all 02/25/2023 [facility] - [...] your living situation today? I have a [facility] place to live 03/04/2024 Education [...] Appointment Department of Laboratory Medicine and Pathology, [facility] in [place], [place] [address] [place] [phone] Lisandro Borja M.D. 200 [place] [phone] 05/14/2024 11:00 AM CDT Procedure visit Department of Urology in [place], [place] [address] [place] [phone] Lisandro Borja M.D. [address] [place] [phone] 05/14/2024 11:30 AM CDT Office Visit Department of Urology in [place], [place] [address] [place] [phone] Lisandro Borja M.D. [address] [place] [phone] 05/30/2024 2:55 PM CDT Appointment Department of Cardiovascular Diseases in [place], [place] [address] [place] [phone] Derrick Malloy Jr., M.D. [address] [place] [phone] Discharge Disposition: Home or Self Care 05/31/2024 2:00 PM CDT Office Visit Department of Cardiovascular Medicine in [place], [place] [address] [place] [phone] Derrick Malloy Jr., M.D. [address] [place] [phone] Health Maintenance Due Date Last Done Comments Hepatitis C Screening 1945 RSV vaccine - (32-3 6 weeks) or 60+ years (1 - 1-dose 75+ series) 02/16/2020 Depression Screening (Annual PHQ-2) 08/15/2023 COVID-19 Vaccine (2023-2 5 season) 2024 06/09/2022, 12/24/2021, 06/05/2021, Additional history exists Influenza Vaccine (#1) 2024 3, 06/09/2022, 06/01/2021, Additional history exists Office Visit for Blood Press ure Check / Re-check 05/25/2024 05/25/2023 Creatinine Level (Kidney Fun ction Test) 05/04/2025 05/04/2024, 03/08/2024, 05/24/2023, Additional history exists Potassium Level 05/04/2025 05/04/2024, 02/13, 05/24/2023, Additional history exists Sodium Level 05/04/2025 05/04/2024, 02/13, 05/24/2023, Additional history exists DTaP,Tdap,and Td Vaccines (3 - Td or Tdap) 06/22/2031 06/22/2021, 03/09/2011, 02/16/2005 Pneumococcal vaccine (65+ years) Completed 02/25/20, 03/03/2010 Zoster Vaccines Completed 06/01/2021, 03/18/2021 Fall Risk Screen (Annual) Completed 03/08/2024 Medical Devices Implanted Type Area Road Gang Supervisor Device Identifier Shelf Expiration Date Model / Serial / Lot Breast Implant Breast Implant Bilateral : Breast Vlv Dayan S3 Ultra 23 - [id number] - [id number] Implanted:Qty : 1 on 03/07/2023 by Carrington Castillo M.D., Ph.D. at [facility] Cardiac Valve Prosthesis N/A: Heart [employer] 06/16/2025 [id number] / [id number] / Description:Aortic Valve Ocular Lens Ocular Lens [...] x 1.5 x 1.3 cm in size ([id number], image #162; series 14, image 87). Distal [...] adenopathy. Normal-appearing left renal artery and vein. Liasndro Borja M.D. IMG CT PROCEDURES * Dipstick, [...] M.D. LAB URINE ORDERABLES Performing Organization Address City/[facility]/ZIP Co de Phone Number [address] [place] [address] * Microscopic Automated (05/04/2024 11:08 AM CDT) Microscopy Normal 05/04/2024 12:20 PM CDT DTL RBC None Seen <3 /hpf 05/04/2024 12:20 PM CDT DTL WBC None Seen /hpf 05/04/2024 12:20 PM CDT DTL Comment: ----REFERENCE VALUE---- <4 ??(Males) <11 (Females) Urine 05/04/2024 11:0 8 AM CDT 05/04/2024 11:59 AM CDT Misael Dos Santos M.D. LAB URINE ORDERABLES [facility] [place] [address] [place], [place] [phone] [place] [address] 200 [place] [address] * pH, Urine (05/04/2024 11:08 AM CDT) pH, U 6.8 4.5 - 8.0 05/04/2024 12: 31 PM CDT DTL Urine 05/04/2024 11:0 8 AM CDT 05/04/2024 11:59 AM CDT Misael Dos Santos M.D. LAB URINE ORDERABLES Performing Organization Address City/[facility]/ZIP Co de Phone Number [facility] [place] [address] [place], [place] [address] [place] [address] 200 [place] [address] * Osmolality, Urine (05/04/2024 11:08 AM CDT) Pathologist [facility] Osmolality, U 442 150 - 1150 mOsm/kg 05/04/2024 12:31 PM CDT DT Urine 05/04/2024 11:0 8 AM CDT 05/04/2024 11:59 AM CDT Misael Dos Santos M.D. LAB URINE ORDERABLES Performing Organization Address City/[facility]/ZIP Co de Phone Number [facility] [place] [address] [place], [place] [phone] [place] [address] 200 [place] [address] * Urinalysis, with Microscopic: Urine, Midstream (05/04/2024 [...] Misael Dos Santos M.D. LAB URINE ORDERABLES [facility] [place] 200 [place] [address], [address] [address] * Electrolyte (Chem 4) Panel (05/04/2024 11:02 [...] Misael Dos Santos M.D. LAB BLOOD ADD-ON [facility] [place] [address] [place] [address], [address] [address] * CBC with Differential, Blood (05/04/2024 11:02 [...] Misael Dos Santos M.D. LAB BLOOD ADD-ON [facility] [place] [address] [place] [address], [facility] DTL [facility] [address] [place] [address] [facility] [address] [place] [address] * BUN (Blood Urea Nitrogen) (05/04/2024 11:02 AM CDT) BUN (Blood Urea Nitrogen), S 14 6 - 21 mg/dL 05/04/2024 1:15 PM CDT DTL Blood (Blood, Venous) 05/04/2024 11:02 AM CDT 05/04/2024 11:38 AM CDT Misael Dos Santos M.D. LAB BLOOD ADD-ON [facility] [place] 200 [place] [address] * (ABNORMAL) ALT (Alanine Aminotransferase) (05/04/2024 11:02 AM CDT) Alanine Aminotransferase (ALT), S 49(H) 7 - 45 U/L 05/04/2024 1:15 PM CDT DTL Blood (Blood, Venous) 05/04/2024 11:02 AM CDT 05/04/2024 11:38 AM CDT Misael Dos Santos M.D. LAB BLOOD ADD-ON [facility] [place] [address] [place] [address] * (ABNORMAL) AST (Aspartate Aminotransferase) (05/04/2024 11:02 AM CDT) Aspartate Aminotransferase (AST), S 50(H) 8 - 43 U/L 05/04/2024 1:15 PM CDT DTL Blood (Blood, Venous) 05/04/2024 11:02 AM CDT 05/04/2024 11:38 AM CDT Misael Dos Santos M.D. LAB BLOOD ADD-ON [facility] [place] [address] [place], [place] [phone] [place] [address] 200 [place] [address] * (ABNORMAL) Alkaline Phosphatase (05/04/2024 11:02 AM CDT) Alkaline Phosphatase, S 115(H) 35 - 104 U/L 05/04/2024 1:15 PM CDT DTL Blood (Blood, Venous) 05/04/2024 11:02 AM CDT 05/04/2024 11:38 AM CDT Misael Dos Santos M.D. LAB BLOOD ADD-ON Performing Organization Address City/[facility] Co de Phone Number [facility] [place] [address] [place], [place] [phone] [place] [address] * Creatinine with Estimated GFR (05/04/2024 11:02 AM CDT) Only the most recent of2 resultswithin the time period is included. Creatinine 0.82 0.59 - 1.04 mg/dL 05/04/2024 1:15 PM CDT DTL Estimated GFR (eGFR) 73 >=60 mL/min/BSA 05/04/2024 1:15 PM CDT DT Comment: Estimated GFR calculated using the 2020 CKD_EPI creatinine equation. Blood (Blood, Venous) 05/04/2024 11:02 AM CDT 05/04/2024 11:38 AM CDT Misael Dos Santos M.D. LAB BLOOD ADD-ON [facility] [place] [address] [place], [place] [phone] [place] [address] 200 [place] [address] * Calcium, Total (05/04/2024 11:02 AM CDT) Calcium, Total, S 9.6 8.8 - 10.2 mg/dL 05/04/2024 1:15 PM CDT DTL Blood (Blood, Venous) 05/04/2024 11:02 AM CDT 05/04/2024 11:38 AM CDT Misael Dos Santos M.D. LAB BLOOD ADD-ON Performing Organization Address City/[facility] Co de Phone Number [facility] [place] [address] [place] [address], [facility] DTL [facility] [address] [place] [address] * CT ABDOMEN PELVIS WO CON-Outside CT [...] System IMG CT PROCEDURES Performing Organization Address [facility] Co de Phone Number [...] CDT 03/08/2024 11:09 AM CDT Karine Davidson APRNNNicholasPNicholas, M.S.N. LAB BLOOD ADD-ON [facility] [place] [address] [place] [address], [facility] DTL [facility] [address] [place] [address] * Prothrombin Time (PT) (03/08/2024 10:30 AM [...] CDT 03/08/2024 10:55 AM CDT Karine Davidson APRNNRamon., M.S.N. LAB BLOOD ADD-ON Performing Organization Address City/[facility]/ZIP Co de Phone Number [facility] [place] [address] [place], [place] [phone] [place] [address] [address] * Sodium (03/08/2024 10:30 AM CDT) Sodium, S 141 135 - 145 mmol/L 03/08/2024 12:04 PM CDT DT Blood (Blood, Venous) 03/08/2024 10:30 AM CDT 03/08/2024 11:09 AM CDT Karine Davidson APRNN.P., M.S.N. LAB BLOOD ADD-ON [facility] [place] [address] [address] * Potassium (03/08/2024 10:30 AM CDT) Potassium, S 4.6 3.6 - 5.2 mmol/L 03/08/2024 12:04 PM CDT DTL Blood (Blood, Venous) 03/08/2024 10:30 AM CDT 03/08/2024 11:09 AM CDT Shoshana Araujo APRN, C.N.P., M.S.N. LAB BLOOD ADD-ON [facility] [place] [address] [place] [address], [facility] [address] [place] [address] * Glucose, Fasting (03/08/2024 10:30 AM CDT) Glucose, P 87 70 - 100 mg/dL 03/08/2024 11:27 AM CDT DTL Last Intake 17 hr 03/08/2024 11:09 AM CDT DTL Blood (Blood, Venous) 03/08/2024 10:30 AM CDT 03/08/2024 11:09 AM CDT Shoshana Araujo APRN, C.N.P., M.S.N. LAB BLOOD NON ADD-ON Performing Organization Address City/[facility] Co de Phone Number [facility] [place] [address] [place] [address], [facility] [address] [place] [address] * Albumin (03/08/2024 10:30 AM CDT) Albumin, S 4.2 3.5 - 5.0 g/dL 03/08/2024 12:04 PM CDT DTL Blood (Blood, Venous) 03/08/2024 10:30 AM CDT 03/08/2024 11:09 AM CDT Shoshana Araujo APRN, C.N.P., M.S.N. LAB BLOOD ADD-ON [facility] [place] [address] [place] [address], [facility] DTL [facility] [address] [place] [address] * ECG 12 Lead (03/08/2024 9:07 AM CDT) Ventricular Rate ECG/Min 62 BPM MUSE DE Interval 192 ms MUSE QRSD Interval 78 ms MUSE QT Interval 418 ms MUSE QTC Interval 424 ms MUSE P [place] 24 degrees MUSE R [place] -5 degrees MUSE T Wave [place] 50 degrees MUSE 03/08/2024 9:07 AM CDT [...] found Reviewed by ISHA Denis Shoshana Araujo APRN C.N.P., M.S.N. ECG ORDERABLES MUSE NA * [...] of the ascending thoracic aorta, 40 mm ([id number] double oblique and series 1000). Postoperative changes [...] dilatation of the ascending thoracic aorta, 40 mm([id number] double oblique and series 1000). Postoperative changes [...] Araujo APRN, C.N.P., M.S.N. IMG CT PROCEDURES from Last 3 Months Advance Directives For more information, please contact: [phone] * Full Code (Latest Code Status on File) Date Activated Date Inactivated Comments 03/07/2023 11:55 AM 03/08/2023 1:14 PM Question Answer Comments Full Code: Discussed
--- OUTSIDE RECORDS SUMMARY | 2024-05-11 03:38 | XMS_ITS | Encounter Summary ---
Author Organization [facility] Address [address] [place] [address] Care Team Providers Care Vat Overhauler Name Role Phone Unavailable Primary Care Provider Unavailabl e Encounter Details Date Type Department Care Team (Latest Contact Info) Description 03/08/2024 9:53 AM CDT - 03/08/2024 12:10 PM CDT Hospital Encounter Department of Laboratory Medicine and Pathology, [facility], in [place], [place] [address] [place] [phone] Shoshana Araujo, EDA, C.N.P., M.S.N. [address] [place] [phone] Replacement Aortic Valve Tissue Discharge Disposition: Home or Self Care Social History Tobacco Use Types Packs/Day Years Used Date Smoking Tobacco: Former Cigarettes Smokeless Tobacco: Never Comments:Smoked socially for about 2 years while in teens Alcohol Use Standard Drinks/Week Comments Yes 0 (1 standard drink = 0.6 oz pur e alcohol) occ. social drink [facility] Utilities Answer Date Recorded In the [...] and heating? Not hard at all 02/25/2023 [facility] - [...] your living situation today? I have a [facility] place to live 03/04/2024 Education [...] Appointment Department of Laboratory Medicine and Pathology, [facility] in [place], [place] [address] [place] [phone] Lisandro Borja M.D. [address] [place] [phone] 05/14/2024 11:00 AM CDT Procedure visit Department of Urology in [place], [place] [address] [place] [phone] Lisandro Borja M.D. [address] [place] [phone] 05/14/2024 11:30 AM CDT Office Visit Department of Urology in [place], [place] [address] [place] [phone] Lisandro Borja M.D. [address] [place] [phone] 05/30/2024 2:55 PM CDT Appointment Department of Cardiovascular Diseases in [place], [place] [address] [place] [place] [phone] Derrick Malloy Jr., M.D. [address] [place] [phone] Discharge Disposition: Home or Self Care 05/31/2024 2:00 PM CDT Office Visit Department of Cardiovascular Medicine in [place], [place] [address] [place] [phone] Derrick Malloy Jr., M.D. [address] [place] [phone] documented as of this encounter Procedures Procedure [...] Araujo APRN, C.N.P., M.S.N. LAB BLOOD ADD-ON [facility] [address] [place] [address], [facility] DTL [facility][note 3] [address] [place] [address] * CBC with Differential, Blood (03/08/2024 10:30 AM CDT) [facility] Hemoglobin 13.0 11.6 - 15.0 g/dL 03/08/2024 [...] M.S.N. LAB BLOOD ADD-ON Performing Organization Address City/[facility]/ZIP Co de Phone Number [facility] [address] [place] [address], [facility] 200 [place] [address] [facility] [address] [place] [address] * Prothrombin Time (PT) (03/08/2024 10:30 AM [...] M.S.N. LAB BLOOD ADD-ON Performing Organization Address City/[facility]/ZIP Co de Phone Number [facility] [address] [place] [address], [facility] [address] [place] [address] * Sodium (03/08/2024 10:30 AM CDT) Sodium, S 141 135 - 145 mmol/L 03/08/2024 12:04 PM CDT DTL Blood (Blood, Venous) 03/08/2024 10:30 AM CDT 03/08/2024 11:09 AM CDT Shoshana Araujo APRN, C.N.P., M.S.N. LAB BLOOD ADD-ON [facility] [address] [place], [place] [phone] [place] [address] 200 [place] [address] * Potassium (03/08/2024 10:30 AM CDT) Potassium, S 4.6 3.6 - 5.2 mmol/L 03/08/2024 12:04 PM CDT DTL Blood (Blood, Venous) 03/08/2024 10:30 AM CDT 03/08/2024 11:09 AM CDT Shoshana Araujo APRN, C.N.P., M.S.N. LAB BLOOD ADD-ON Performing Organization Address City/[facility] Co de Phone Number [facility] [address] [place], [place] [phone] [place] [address] 200 [place] [address] * Glucose, Fasting (03/08/2024 10:30 AM CDT) Glucose, P 87 70 - 100 mg/dL 03/08/2024 11:27 AM CDT DTL Last Intake 17 hr 03/08/2024 11:09 AM CDT DTL Blood (Blood, Venous) 03/08/2024 10:30 AM CDT 03/08/2024 11:09 AM CDT Shoshana Araujo APRN, C.N.P., M.S.N. LAB BLOOD NON ADD-ON [facility] 200 [place] [address], [facility] 200 [place] [address] * Creatinine with Estimated GFR (03/08/2024 10:30 AM CDT) Creatinine 0.78 0.59 - 1.04 mg/dL 03/08/2024 12:04 PM CDT DTL Estimated GFR (eGFR) 77 >=60 mL/min/BSA 03/08/2024 12:04 PM CDT DTL Comment: Estimated GFR calculated using the 2020 CKD_EPI creatinine equation. Blood (Blood, Venous) 03/08/2024 10:30 AM CDT 03/08/2024 11:09 AM CDT Shoshana Araujo APRN, C.N.P., M.S.N. LAB BLOOD ADD-ON [address] [address], [facility] [address] [address] * Albumin (03/08/2024 10:30 AM CDT) Albumin, S 4.2 3.5 - 5.0 g/dL 03/08/2024 12:04 PM CDT DTL Blood (Blood, Venous) 03/08/2024 10:30 AM CDT 03/08/2024 11:09 AM CDT Shoshana Araujo APRN, C.N.P., M.S.N. LAB BLOOD ADD-ON [facility] 200 [place] [address], [facility] [address] [address] documented in this encounter Visit Diagnoses Diagnosis Replacement Aortic Valve Tissue documented in this encounter
--- OUTSIDE RECORDS SUMMARY | 2024-05-11 03:38 | XMS_ITS | Continuity of Care Document ---
Author Organization [facility] Address [address] [address] [place] [address] Phone Care Team Providers Care Enrober Tender Name Role Phone Ciro Stone MD, Christ Mata Unavailabl e Allergies, Adverse Reactions, Alerts Substance Reaction Status Criticality Corticosteroids (Glucocorticoids) Active No Information Medications Medication Instructions Dosage Effective Dates (start - stop) Status Comments Aspir-81 81 mg tablet,delayed release take 1 tablet by oral route every day - Active magnesium 250 mg Tab take 1 by Oral route every day 1.00 - Active Imitrex unknown as needed - Active ROSUVASTATIN CALCIUM (unknown strength) take 1 tablet by oral route every day Not Available - Active Miralax 17 gram/dose oral powder take (17G) by oral route every day mixed with 8 oz. water, juice, soda, coffee or tea - Active STOOL SOFTENER (unknown strength) take 1 capsule by oral route every day at bedtime as needed Not Available - Active TRIAMCINOLONE ACETONIDE (unknown strength) apply by topical route 2 times every week a thin layer to the affected area(s) Not Available - Active CALCIO OLI (unknown strength) Take two tablets by mouth daily Not Available - Active Procedures Procedure Date Colonoscopy Flex; Dx (sep Pro) 19 Colonoscopy Flex; W/remov Les- 15 Level Iv-surg Path Gross/micro 15 Offic Cons New/estab Mod Routine Serum Collection [id number] Colonoscopy Flex; W/bx 1/mx Level Iv-surg Path Gross/micro 10 Advance Directives Directive Yes / No Effective Date File Name No Information Encounters Encounter Description Practice Location Reason(s) For Visit Diagnoses Date Provider Providers Copied on Encounter [facility] [place], [address] [address], [place], [id number], [place] tel:[phone] [facility] No Information 4 Ciro Polo. [address], [id number], [place]. tel:[phone] [facility], [address] [address], [place], [id number], [place] tel:[phone] [facility] Diverticulosis Dvrtclos of lg int w/o perforation or abscess w/o bleedingPerson al history of other diseases of the digestive systemPersonal history of colonic polypsDvrtclos of lg int w/o perforation or abscess w/o bleeding 9 Elkin Lehman. [address], [id number], [place]. [phone] [facility] [place], [address] [address], [place], [id number], [place] tel:[phone] [facility] No Information 9 Elkin Lehman. [address], [id number], [place]. tel:[phone] [facility] [place], [address] [address], [place], [id number], [place] tel:[phone] [facility] Colon polypColon Cancer ScreeningPerso nal History Colon PolypsPseudopo lyposis Of Colon 5 No Information Referring Provider: November Steph Sagastume, [address], [place], [address]. tel:[phone] Offic Cons New/estab Mod [facility] [place], [address] [address], [place], [id number], [place] tel:[phone] [facility] Chronic Abdominal Pain (chief complaint) LLQ PainFlatul/eru ctat/gas PainConstipati on Unspecified 1 No Information [facility], [address] [address], [place], [id number], [place] tel:[phone] [facility] Abdominal Pain, Unspecified 0 No Information Referring Provider: Haven Anand MD, [address] [place], [address]. tel:[phone] [facility], [address] [address], [place], [id number], [place] tel:[phone] [facility] No Information 5 No Information Family History Family Member Type Diagnosis Age At Onset First degree family history Problem (finding) No history of Ulcerative Colitis Father Problem (finding) Colon polyps Mother Problem (finding) malignant neoplasm of b one First degree family history Problem (finding) Hepatitis C Mother Problem (finding) malignant neop lasm of breast in first degree relative First degree family history Problem (finding) alcoholism Father Problem (finding) alcoholism First degree family history Problem (finding) Cancer, breast First degree family history Problem (finding) No history of Cancer, colon Daughter Problem (finding) Thyroid disorder First degree family history Problem (finding) Colon Polyps First degree family history Problem (finding) No history of Crohn's Son Problem (finding) Alive and well Sister Problem (finding) diverticulitis of colon Sister Problem (finding) malignant neop lasm of breast in first degree relative Immunizations Vaccine Date Status Comments Seasonal, quadrivalent, recombinant, injectable influenza vaccine, preservative free administered Note: [facility] bi-direct ional interface ; Source: Other Registry influenza, high dose seasona l, preservative-free administered Note: [facility] bi-direct ional interface ; Source: Other Registry influenza, high dose seasona l, preservative-free administered Note: [facility] bi-direct ional interface ; Source: Other Registry influenza, high dose seasona l, preservative-free administered Note: [facility] bi-direct ional interface ; Source: Other Registry Prevnar administered Note: [facility] bi-d irectional interface ; Source: Other Registry Influenza, seasonal, injecta ble, preservative free administered Note: [facility] bi-direct ional interface ; Source: Other Registry Influenza, seasonal, injecta ble, preservative free administered Note: [facility] bi-direct ional interface ; Source: Other Registry Influenza, seasonal, injecta ble, preservative free administered Note: [facility] bi-direct ional interface ; Source: Other Registry tetanus toxoid, reduced diphtheria toxoid, and acellular pertussis vaccine, adsorbed administered Note: [facility] b i-directional interface ; Source: Other Registry Influenza, seasonal, injecta ble, preservative free administered Note: [facility] bi-direct ional interface ; Source: Other Registry Pneumovax 23 administered Note: [facility] bi-d irectional interface ; Source: Other Registry Novel [id number], all formulations administered Note: [facility] bi-direct ional interface ; Source: Other Registry Influenza, seasonal, injectable administe red Note: [facility] bi- directional interface ; Source: Other Registry tetanus and diphtheria toxoi ds, adsorbed, preservative free, for adult use (2 Lf of tetanus toxoid and 2 Lf of diphtheria toxoid) administered Note: [facility] bi-direct ional interface ; Source: Other Registry Payers Payer name Insurance type Covered democrat ID Authorarianea twyla(s) [employer] Medicare MB [id number] Social History Type Description Quantity Date Captured Comments Sex Female Smoking Status No Information Chief Complaint And Reason For Visit No Information Reason For Referral Reason For Referral No Information History Of Present Illness Encounter Date Complaint History Of Prese nt Illness No Information Functional Status Date Functional Assessmen t No Information Instructions Date Instruction Additional Infor josh Colon Polyps Related to Colon polyp Colon Cancer Prevention Related to Colon polyp Diverticulosis/Diverticulitis Re lated to Colon polyp Assessments Type Assessment Date No Information Patient Care Teams Name Effective Dates (start - stop) Status Members No Information
--- OUTSIDE RECORDS SUMMARY | 2024-05-11 03:38 | XMS_ITS | Clinical Summary ---
Author Organization [facility] Address [address] [place] [address] Care Team Providers Care Electric Serviceman Name Role Phone Needs Pcp, Assignment Primary Care Provider [phone] Source Comments You are receiving this document as you are listed as the primary care provider,follow-up provider, or the patient has been referred to you for consultation.This is in compliance with the Medicare andOhio State University [facility] Medical Centercaid EHR Incentive Program,which states Providers who transition their patient to another setting of careor provider of care or refers their patient to another provider of care shouldprovide summary care record for each transition of care or referral. [facility] Allergies Active Allergy Reactions Criticality Noted Date [...] Zoster/Shingles (1 of 2) 1995 Dexa 2010 RSV (1 - 1-dose 75+ series) 02/16/2020 DTaP/Tdap/Td (2 - Tdap) 03/09/2021 03/09/2011, 02/16 COVID-19 Vaccine ( - season) 2024 09/25/2020, 09/04/2020 Influenza (#1) 2024 06/04/2020, 05/16, [...] age to complete this topic Care Teams Electric Serviceman Relationship Specialty Start Date End Date Needs Pcp, [place] [address] PCP - General 06/05/21
--- OUTSIDE RECORDS SUMMARY | 2024-05-11 03:38 | XMS_ITS | Encounter Summary ---
Author Organization [facility] Address [address] [place] [address] Care Team Providers Care Manager Acquisition Name Role Phone Unavailable Primary Care Provider Unavailabl e Reason for Visit * Reason Onset Date Comments Pre-visit Testing Orders 04/24/2024 Encounter Details Date Type Department Care Team (Latest Contact Info) Description 04/24/2024 Clinical Communication Department of Urology in [place], [place] [address] [place] [address] Lisandro Borja M.D. [address] [place] [address] Pre-visit Testing Orders Social History Tobacco Use Types Packs/Day Years [...] and Family Twice a week 05/16/2019 Attends [employer] Services More than 4 times per year [...] your living situation today? [facility] 03/04/2024 Education Answer Date [...] Appointment Department of Laboratory Medicine and Pathology, [facility] in [place], [place] [address] [place] [address] Lisandro Borja M.D. [address] [place] [phone] 05/14/2024 11:00 AM CDT Procedure visit Department of Urology in [place], [place] [address] [place] [phone] Lisandro Borja M.D. [address] [place] [phone] 05/14/2024 11:30 AM CDT Office Visit Department of Urology in [place], [place] [address] [place] [address] Lisandro Borja M.D. [address] [place] [phone] 05/30/2024 2:55 PM CDT Appointment Department of Cardiovascular Diseases in [place], [place] [address] [place] [phone] Derrick Malloy Jr., M.D. [address] [place] [phone] Discharge Disposition: Home or Self Care 05/31/2024 2:00 PM CDT Office Visit Department of Cardiovascular Medicine in [place], [place] [address] [place] [phone] Derrick Malloy Jr., M.D. [address] [place] [phone] documented as of this encounter Results * Urinalysis, with Microscopic: Urine, Midstream (05/04/2024 [...] ORDERABLES [facility] [place] 200 [place] [address], [place] DTL [facility] 200 [place] [address] * (ABNORMAL) Alkaline Phosphatase (05/04/2024 11:02 AM CDT) Alkaline Phosphatase, S 115(H) 35 - 104 U/L 05/04/2024 1:15 PM CDT DTL Blood (Blood, Venous) 05/04/2024 11:02 AM CDT 05/04/2024 11:38 AM CDT Misael Dos Santos M.D. LAB BLOOD ADD-ON [facility] [place] [address] [place], [place] [phone] [place] [address] 200 [place] [address] * (ABNORMAL) ALT (Alanine Aminotransferase) (05/04/2024 11:02 AM CDT) Alanine Aminotransferase (ALT), S 49(H) 7 - 45 U/L 05/04/2024 1:15 PM CDT DT Blood (Blood, Venous) 05/04/2024 11:02 AM CDT 05/04/2024 11:38 AM CDT Misael Dos Santos M.D. LAB BLOOD ADD-ON Performing Organization Address City/[facility]/ZIP Co de Phone Number [facility] [place] 200 [place], [place] [phone] [place] [address] 200 [place] [address] * (ABNORMAL) AST (Aspartate Aminotransferase) (05/04/2024 11:02 AM CDT) Aspartate Aminotransferase (AST), S 50(H) 8 - 43 U/L 05/04/2024 1:15 PM CDT DT Blood (Blood, Venous) 05/04/2024 11:02 AM CDT 05/04/2024 11:38 AM CDT Misael Dos Santos M.D. LAB BLOOD ADD-ON [facility] [place] 200 [place] [address], [facility] 200 [place] [address] * Calcium, Total (05/04/2024 11:02 AM CDT) [facility] Calcium, Total, S 9.6 8.8 - 10.2 mg/dL 05/04/2024 1:15 PM CDT DTL Blood (Blood, Venous) 05/04/2024 11:02 AM CDT 05/04/2024 11:38 AM CDT Misael Dos Santos M.D. LAB BLOOD ADD-ON [facility] [place] [address] [place] [address], [facility] 200 [place] [address] * CBC with Differential, Blood (05/04/2024 11:02 AM CDT) [facility] Hemoglobin 13.4 11.6 - 15.0 g/dL 05/04/2024 [...] M.D. LAB BLOOD ADD-ON Performing Organization Address City/[facility]/ZIP Co de Phone Number [facility] [place] [address] [place] [address] * Creatinine with Estimated GFR (05/04/2024 11:02 AM CDT) [facility] Creatinine 0.82 0.59 - 1.04 mg/dL 05/04/2024 1:15 PM CDT DTL Estimated GFR (eGFR) 73 >=60 mL/min/BSA 05/04/2024 1:15 PM CDT DTL Comment: Estimated GFR calculated using the 2020 CKD_EPI creatinine equation. Blood (Blood, Venous) 05/04/2024 11:02 AM CDT 05/04/2024 11:38 AM CDT Misael Dos Santos M.D. LAB BLOOD ADD-ON [facility] [place] [address] [place] [address] * BUN (Blood Urea Nitrogen) (05/04/2024 11:02 AM CDT) BUN (Blood Urea Nitrogen), S 14 6 - 21 mg/dL 05/04/2024 1:15 PM CDT DTL Blood (Blood, Venous) 05/04/2024 11:02 AM CDT 05/04/2024 11:38 AM CDT Misael Dos Santos M.D. LAB BLOOD ADD-ON [facility] [place] [address] [place] [address], [facility] [address] [place] [address] * Electrolyte (Chem 4) Panel (05/04/2024 11:02 [...] [facility] [place] [address] [place] [address], [place] [facility] [place] [address] [place] [address] documented in this encounter Visit Diagnoses Diagnosis Mass Kidney- Primary documented in this encounter
--- OUTSIDE RECORDS SUMMARY | 2024-05-11 03:38 | XMS_ITS | Clinical Summary ---
Author Organization [facility] Address [place], [place] [address] Care Team Providers Care Solar Sales Manager Name Role Phone Claudia Ren PA-C Primary Care Provider [phone] Allergies Active Allergy Reactions Criticality Noted Date [...] stenosis 04/29/2022 Atherosclerotic heart diseas e of [place] coronary artery without angina pectoris 04/29/2022 Primary hypertension 04/29/2022 Overview (06/18/2022): Last Assessment & Plan: Mrs. Diaz is a very pleasant 77-year-old female who was seen in the [facility] for a 1 year follow up of aortic stenosis. She has been doing well over the past year from a heart standpoint. She denies any new cardiopulmonary symptoms today. She continues to be very physically active with walking 2 days a week, playing Tb[employer] ball 1 day a week, and golfing [...] as physically active as tolerated. Hyperlipidemia 05/23/2012 Overview (06/18/2022): Other and unspecified hyperlipidemia Hyperparathyroidism 05/23/2012 Overview (06/18/2022): S/p partial paroidectomy Migraine 05/23/2012 Osteoarthritis of multiple joints 05/23/2012 Overview (06/18/2022): Osteoarthrosis involving, or with mention of more [...] Comments Blood Pressure 134/82 07/01/2022 3:35 PM INDUSTRIAL MAINTENANCE ELECTRICIAN Pulse 76 07/01/2022 3:35 PM INDUSTRIAL MAINTENANCE ELECTRICIAN Temperature - - Respiratory Rate 16 06/22/2022 3:59 PM INDUSTRIAL MAINTENANCE ELECTRICIAN Oxygen Saturation 97% 07/01/2022 3:35 PM INDUSTRIAL MAINTENANCE ELECTRICIAN Inhaled Oxygen Concentration - - Weight 70.8 kg (156 lb) 07/01/2022 3:35 PM INDUSTRIAL MAINTENANCE ELECTRICIAN Height 165.1 cm (5' 5) 07/01/2022 3:35 PM INDUSTRIAL MAINTENANCE ELECTRICIAN Body Mass Index 25.96 07/01/2022 3:35 PM INDUSTRIAL MAINTENANCE ELECTRICIAN Plan of Treatment Health Maintenance Due Date Last Done Comments Tdap 02/16/1956 Depression screening for age 12+ 1957 Hepatitis C screening for ag e 18-79 1963 Tetanus booster 1965 Zoster (shingles) series for age 50+ (1 of 2) 1995 DEXA/DXA scan for age 65+ 2010 Medicare Wellness for age 65+ 2010 Pneumococcal series for age 65+ (1 of 1 - PCV) 2010 RSV vaccine for adults or (1 - 1-dose 75+ series) 02/16/2020 BMI (ht and wt on same day) for age 18+ 07/01/2023 07/01/2022 COVID-19 vaccine series ( - 2023- season) 2024 06/09/2023, 06/09/2022, 12/24/2021, Additional history exists Influenza for age 65+ 04/15/2024 Care Teams Solar Sales Manager Relationship Specialty Start Date End Date Claudia Ren PA-C [address] [place] [address] PCP - General Emergency Medicine 06/11/22
--- OUTSIDE RECORDS SUMMARY | 2024-05-11 03:38 | XMS_ITS | Encounter Summary ---
Author Organization [facility] Address [address] [place] [address] Care Team Providers Care Interventional Physician Name Role Phone Unavailable Primary Care Provider Unavailabl e Reason for Visit * Reason Onset Date Comments Previsit Preparation 03/06/2024 Encounter Details Date Type Department Care Team (Latest Contact Info) Description 03/06/2024 9:30 AM CDT Clinical Communication Virtual Review in [place], [place] 200 [place] [address] Previsit Preparation Social History Tobacco Use Types Packs/Day Years Used Date Smoking Tobacco: Former Cigarettes Smokeless Tobacco: Never Tobacco Cessation:Counseling Given: Not Answered Comments:Smoked socially for about 2 years while in teens Alcohol Use Standard Drinks/Week Comments Yes 0 (1 standard drink = 0.6 oz pur e alcohol) occ. social drink [facility] Utilities Answer Date Recorded In the past 12 months has [employer], gas, oil, or water [employer] threatened to shut off services in your [...] and Family Twice a week 05/16/2019 Attends Worship Services More than 4 times per year [...] and heating? Not hard at all 02/25/2023 [facility] - Occupational [...] your living situation today? I [facility] 03/04/2024 Education Answer [...] Appointment Department of Laboratory Medicine and Pathology, [facility] in [place], [place] [address] [place] [address] Lisandro Borja M.D. [address] [place] [phone] 05/14/2024 11:00 AM CDT Procedure visit Department of Urology in [place], [place] [address] [place] [address] Lisandro Borja M.D. [address] [place] [phone] 05/14/2024 11:30 AM CDT Office Visit Department of Urology in [place], [place] [address] [place] [phone] Lisandro Borja M.D. [address] [place] [phone] 05/30/2024 2:55 PM CDT Appointment Department of Cardiovascular Diseases in [place], [place] [address] [place] [address] Derrick Malloy Jr., M.D. [address] [place] [address] Discharge Disposition: Home or Self Care 05/31/2024 2:00 PM CDT Office Visit Department of Cardiovascular Medicine in [place], [place] [address] [place] [address] Derrick Malloy Jr., M.D. [address] [place] [address] documented as of this encounter Visit Diagnoses Not on filedocumented in this encounter
--- OUTSIDE RECORDS SUMMARY | 2024-05-11 03:38 | XMS_ITS | Encounter Summary ---
Author Organization [facility] Address [address] [place] [address] Care Team Providers Care Heating And Blending Supervisor Name Role Phone Unavailable Primary Care Provider Unavailabl e Reason for Referral * MRI/CAT/PET Scan (Routine) - Closed Specialty Diagnoses / Procedures Referred By Nathan galloway Referred To Contact Radiology Diagnoses Replacement Aortic Valve Tissue Procedures CT Chest without IV Contrast Shoshana Araujo APRN, C.NGilmar, M.S.N. [address] [place] [phone] [facility] Referral ID Status Reason Start Date Expiration Date Visits Re quested Visits Authorized [id number] Closed 05/25/2023 05/24/2024 1 1 Reason for Visit * MRI/CAT/PET Scan (Routine) - Closed Specialty Diagnoses / Procedures Referred By Nathan galloway Referred To Contact Radiology Diagnoses Replacement Aortic Valve Tissue Procedures CT Chest without IV Contrast Shoshana Araujo APRN, C.N.Margi, M.S.N. [address] [place] [phone] [facility] Referral ID Status Reason Start Date Expiration Date Visits Re quested Visits Authorized [id number] Closed 05/25/2023 05/24/2024 1 1 Encounter Details Date Type Department Care Team (Latest Contact Info) Description 03/08/2024 8:39 AM CDT - 03/08/2024 9:52 AM CDT Hospital Encounter Department of Radiology, [facility], in [place], [place] [address] [place] [address] Shoshana Araujo APRN, C.N.P., M.S.N. [address] [place] [address] Replacement Aortic Valve Tissue Discharge Disposition: Home or Self Care Social History Tobacco Use Types Packs/Day Years Used Date Smoking Tobacco: Former Cigarettes Smokeless Tobacco: Never Comments:Smoked socially for about 2 years while in teens Alcohol Use Standard Drinks/Week Comments Yes 0 (1 standard drink = 0.6 oz pur e alcohol) occ. social drink [facility] Utilities Answer Date Recorded In the past 12 months has [employer] gas, oil, or water [employer] threatened to shut off services in your [...] and Family Twice a week 05/16/2019 Attends Christianity Services More than 4 times per year [...] all 02/25/2023 [facility] - Occupational Stress Questionnaire [...] Appointment Department of Laboratory Medicine and Pathology, [facility], in [place], [place] [address] [place] [address] Lisandro Borja M.D. [address] [place] [phone] 05/14/2024 11:00 AM CDT Procedure visit Department of Urology in [place], [place] [address] [place] [address] Lisandro Borja M.D. [address] [place] [phone] 05/14/2024 11:30 AM CDT Office Visit Department of Urology in [place], [place] [address] [place] [phone] Lisandro Borja M.D. [address] [place] [phone] 05/30/2024 2:55 PM CDT Appointment Department of Cardiovascular Diseases in [place], [place] [address] [place] [phone] Derrick Malloy Jr., M.D. [address] [place] [phone] Discharge Disposition: Home or Self Care 05/31/2024 2:00 PM CDT Office Visit Department of Cardiovascular Medicine in [place], [place] [address] [place] [phone] Derrick Malloy Jr., M.D. [address] [place] [phone] documented as of this encounter Procedures Procedure [...] of the ascending thoracic aorta, 40 mm (iamv-[id number] double oblique and series 1000). Postoperative changes [...] dilatation of the ascending thoracic aorta, 40 mm([id number]-[id number] double oblique and series 1000). Postoperative changes [...]
--- OUTSIDE RECORDS SUMMARY | 2024-05-11 03:38 | XMS_ITS | Encounter Summary ---
Author Organization [facility] Address [address] [place] [address] Care Team Providers Care Glass Frame Fitter Name Role Phone Unavailable Primary Care Provider Unavailabl e Reason for Visit * Reason Onset Date Comments Appt Request 03/13/2024 Encounter Details Date Type Department Care Team (Latest Contact Info) Description 03/13/2024 Clinical Communication Department of Cardiovascular Medicine in [address] [place] [phone] Derrick Malloy Jr., M.D. [address] [place] [phone] Appt Request Social History Tobacco Use Types [...] and heating? Not hard at all 02/25/2023 [facility]ational Stress Questionnaire [...] your living situation today? I have a [facility] place to live 03/04/2024 Education Answer [...] Appointment Department of Laboratory Medicine and Pathology, [facility] in [address] [place] [address] Lisandro Borja M.D. [address] [place] [phone] 05/14/2024 11:00 AM CDT Procedure visit Department of Urology in [address] [place] [phone] Lisandro Borja M.D. [address] [place] [phone] 05/14/2024 11:30 AM CDT Office Visit Department of Urology in [address] [place] [address] Lisandro Borja M.D. [address] [place] [phone] 05/30/2024 2:55 PM CDT Appointment Department of Cardiovascular Diseases in [address] [place] [address] Derrick Malloy Jr., M.D. [address] [place] [phone] Discharge Disposition: Home or Self Care 05/31/2024 2:00 PM CDT Office Visit Department of Cardiovascular Medicine in [address] [place] [address] Derrick Malloy Jr., M.D. [address] [place] [address] documented as of this encounter Visit Diagnoses Not on filedocumented in this encounter
--- OUTSIDE RECORDS SUMMARY | 2024-05-11 03:38 | XMS_ITS | Encounter Summary ---
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 [address] [place] [phone] Social History Tobacco Use Types Packs/Day Years Used Date Smoking Tobacco: Former Cigarettes Smokeless Tobacco: Never Comments:Smoked socially for about 2 years while in teens Alcohol Use Standard Drinks/Week Comments Yes 0 (1 standard drink = 0.6 oz pur e alcohol) occ. social drink [facility] Utilities Answer Date Recorded In the [...] and Family Twice a week 05/16/2019 Attends [employer] [facility] More than 4 times per year [...] heating? Not hard at all 02/25/2023 [facility] of Occupat ional Health - Occupational Stress [...] living situation today? I have a [facility] place to live 03/04/2024 Education Answer Date [...] her home care physician, Dr. Kendrick, at [phone], who will anticoagulate the patient for 3-4 [...] Appointment Department of Laboratory Medicine and Pathology, [facility], in [place], [place] [address] [place] [address] Lisandro Borja M.D. [address] [place] [address] 05/14/2024 11:00 AM CDT Procedure visit Department of Urology in [place], [place] [address] [place] [address] Lisandro Borja M.D. [address] [place] [phone] 05/14/2024 11:30 AM CDT Office Visit Department of Urology in [place], [place] [address] [place] [address] Lisandro Borja M.D. [address] [place] [phone] 05/30/2024 2:55 PM CDT Appointment Department of Cardiovascular Diseases in [place], [place] [address] [place] [address] Derrick Malloy Jr., M.D. [address] [place] [phone] Discharge Disposition: Home or Self Care 05/31/2024 2:00 PM CDT Office Visit Department of Cardiovascular Medicine in [place], [place] [address] [place] [address] Derrick Malloy Jr., M.D. [address] [place] [phone] documented as of this encounter Visit Diagnoses Not on filedocumented in this encounter
--- OUTSIDE RECORDS SUMMARY | 2024-05-11 03:38 | XMS_ITS | Encounter Summary ---
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 200 [place] [address] [facility] Referral ID Status Reason Start Date Expiration Date V isits Requested Visits Authorized [id number] Authorized 03/12/2024 03/12/2025 1 1 Encounter Details Date Type Department Care Team (Latest Contact Info) Description 03/12/2024 Clinical Communication Department of Cardiovascular Medicine in [place], [place] [address] [place] [address] Derrick Malloy Jr., M.D. [address] [place] [phone] Social History Tobacco Use Types Packs/Day Years Used Date Smoking Tobacco: Former Cigarettes Smokeless Tobacco: Never Comments:Smoked socially for about 2 years while in teens Alcohol Use Standard Drinks/Week Comments Yes 0 (1 standard drink = 0.6 oz pur e alcohol) occ. social drink [facility] Utilities Answer Date Recorded In [...] and Family Twice a week 05/16/2019 Attends [employer] More than 4 times per year [...] and heating? Not hard at all 02/25/2023 [facility] of Occupat ional Health - Occupational Stress [...] your living situation today? I have a [facility] place to live 03/04/2024 Education Answer [...] Appointment Department of Laboratory Medicine and Pathology, [facility], in [place], [place] 200 [place] [address] Lisandro Borja M.D. 200 [place] [address] 05/14/2024 11:00 AM CDT Procedure visit Department of Urology in [place], [place] [address] [place] [address] Lisandro Borja M.D. [address] [place] [address] 05/14/2024 11:30 AM CDT Office Visit Department of Urology in [place], [place] [address] [place] [address] Lisandro Borja M.D. [address] [place] [phone] 05/30/2024 2:55 PM CDT Appointment Department of Cardiovascular Diseases in [place], [place] [address] [place] [address] Derrick Malloy Jr., M.D. [address] [place] [phone] Discharge Disposition: Home or Self Care 05/31/2024 2:00 PM CDT Office Visit Department of Cardiovascular Medicine in [place], [place] [address] [place] [phone] Derrick Malloy Jr., M.D. [address] [place] [phone] Scheduled Orders Name Type Priority Associated Diagnoses Order Schedule Echo Transthoracic (TTE) - Complex Valvular Heart Disease Echocardiography Routine Stenosis Aortic Valve Acquired Prosthesis Aortic Valve Expected: 06/12/2024, Expires: 06/12/2025 documented as of this encounter Visit Diagnoses Diagnosis Stenosis Aortic Valve Acquired- Primary Prosthesis Aortic Valve documented in this encounter
--- OUTSIDE RECORDS SUMMARY | 2024-05-11 03:38 | XMS_ITS | Encounter Summary ---
Author Organization [facility] Address [address] [place] [address] Care Team Providers Care Ballet Soloist Name Role Phone Unavailable Primary Care Provider Unavailabl e Reason for Visit * Reason Onset Date Comments Return Call Request 03/09/2024 Dr. Aroldo rankin [facility] is out of the office until Tuesday. Encounter Details Date Type Department Care Team (Latest Contact Info) Description 03/09/2024 Clinical Communication Department of Cardiovascular Medicine in [place], [place] [address] [place] [phone] Derrick Malloy Jr., M.D. [address] [place] [phone] Return Call Request (Dr. Kendrick from [place] is out of the office until Tuesday.) Social History Tobacco Use Types Packs/Day Years Used Date Smoking Tobacco: Former Cigarettes Smokeless Tobacco: Never Comments:Smoked socially for about 2 years while in teens Alcohol Use Standard Drinks/Week Comments Yes 0 (1 standard drink = 0.6 oz pur e alcohol) occ. social drink [facility] Utilities Answer Date Recorded In [...] and Family Twice a week 05/16/2019 Attends [employer] More than 4 times per year [...] and heating? Not hard at all 02/25/2023 [facility] of Occupat ional Health - Occupational [...] Appointment Department of Laboratory Medicine and Pathology, [facility], in [place], [place] [address] [place] [address] Lisandro Borja M.D. 200 [place] [phone] 05/14/2024 11:00 AM CDT Procedure visit Department of Urology in [place], [place] [address] [place] [address] Lisandro Borja M.D. [address] [place] [phone] 05/14/2024 11:30 AM CDT Office Visit Department of Urology in [place], [place] [address] [place] [address] Lisandro Borja M.D. [address] [place] [phone] 05/30/2024 2:55 PM CDT Appointment Department of Cardiovascular Diseases in [place], [place] [address] [place] [address] Derrick Malloy Jr., M.D. [address] [place] [phone] Discharge Disposition: Home or Self Care 05/31/2024 2:00 PM CDT Office Visit Department of Cardiovascular Medicine in [place], [place] [address] [place] [address] Derrick Malloy Jr., M.D. [address] [place] [phone] documented as of this encounter Visit Diagnoses Not on filedocumented in this encounter
--- OUTSIDE RECORDS SUMMARY | 2024-05-11 03:38 | XMS_ITS | Encounter Summary ---
Author Organization [facility] Address [address] [place] [address] Care Team Providers Care Sanitation Officer Name Role Phone Unavailable Primary Care Provider Unavailabl e Reason for Referral * Outpatient (Routine) - Closed Specialty Diagnoses / Procedures Referred By Nathan galloway Referred To Contact Diagnoses Replacement Aortic Valve Tissue Procedures Echo Transthoracic (TTE) - Complex Valvular Heart Disease Shoshana Araujo APRN, C.NGilmar, M.S.N. [address] [place] [phone] [facility] Referral ID Status Reason Start Date Expiration Date Visits Re quested Visits Authorized [id number] Closed 05/25/2023 05/24/2024 1 1 Reason for Visit * Outpatient (Routine) - Closed Specialty Diagnoses / Procedures Referred By Nathan galloway Referred To Contact Diagnoses Replacement Aortic Valve Tissue Procedures Echo Transthoracic (TTE) - Complex Valvular Heart Disease Shoshana Araujo APRN, C.N.Margi, M.S.N. [address] [place] [phone] [facility] Referral ID Status Reason Start Date Expiration Date Visits Re quested Visits Authorized [id number] Closed 05/25/2023 05/24/2024 1 1 Encounter Details Date Type Department Care Team (Latest Contact Info) Description 03/08/2024 12:11 PM CDT - 03/08/2024 11:59 PM CDT Hospital Encounter Department of Cardiovascular Diseases in [place], [place] [address] [place] [address] Shoshana Araujo, EDA, C.N.P., M.S.N. [address] [place] [address] Replacement Aortic Valve Tissue Discharge Disposition: Home [...] In the past 12 months has e [employer], gas, oil, or water [employer] threatened to shut off services in your [...] Not hard at all 02/25/2023 [facility] of Occupat ional Health - Occupational Stress [...] Appointment Department of Laboratory Medicine and Pathology, [facility] in [place], [place] [address] [place] [address] Lisandro Borja M.D. [address] [place] [address] 05/14/2024 11:00 AM CDT Procedure visit Department of Urology in [place], [place] [address] [place] [address] Lisandro Borja M.D. [address] [place] [address] 05/14/2024 11:30 AM CDT Office Visit Department of Urology in [place], [place] [address] [place] [address] Lisandro Borja M.D. [address] [place] [phone] 05/30/2024 2:55 PM CDT Appointment Department of Cardiovascular Diseases in [place], [place] [address] [place] [address] Derrick Malloy Jr., M.D. [address] [place] [phone] Discharge Disposition: Home or Self Care 05/31/2024 2:00 PM CDT Office Visit Department of Cardiovascular Medicine in [place], [place] [address] [place] [address] Derrick Malloy Jr., M.D. [address] [place] [phone] documented as of this encounter Procedures Procedure [...]
--- OUTSIDE RECORDS SUMMARY | 2024-05-11 03:38 | XMS_ITS | Encounter Summary ---
Author Organization [facility] Address [address] [place] [address] Care Team Providers Care Supervisor Spinning Name Role Phone Unavailable Primary Care Provider Unavailabl e Reason for Visit * Outpatient (Routine) - Closed Specialty Diagnoses / Procedures Referred By Nathan galloway Referred To Contact Cardiovascular Disease Shoshana Araujo APRN CNicholasNNicholasP., M.S.N. 200 [place] [address] [facility] Referral ID Status Reason Start Date Expiration Date Visits Re quested Visits Authorized [id number] Closed 05/25/2023 05/24/2026 1 1 Encounter Details Date Type Department Care Team (Latest Contact Info) Description 03/08/2024 4:00 PM CDT Office Visit Department of Cardiovascular Medicine in [place], [place] [address] [place] [phone] Derrick Malloy Jr., M.D. 200 [place] [phone] Stenosis Aortic Valve Acquired (Primary Dx); Prosthesis Aortic Valve; Hypertension Essential Primary; Hyperlipidemia On Treatment; Cancer Breast Personal History Social History Tobacco Use Types Packs/Day Years Used Date Smoking Tobacco: Former Cigarettes Smokeless Tobacco: Never Comments:Smoked socially for about 2 years while in teens Alcohol Use Standard Drinks/Week Comments Yes 0 (1 standard drink = 0.6 oz pur e alcohol) occ. social drink [facility] Utilities Answer Date Recorded In the past [...] and heating? Not hard at all 02/25/2023 [facility] of Occupat ional Health - Occupational Stress [...] your living situation today? I have a [facility] place to live 03/04/2024 [...] including rate of 62 beats per minute, [place] interval of 192 milliseconds, axis, voltage, QRS [...] also to her home physician in the [facility], Dr. Pam Kendrick. Derrick Malloy Jr., M.D. 03/08/2024 documented in this encounter Plan of Treatment Upcoming Encounters Date Type Department Care Team (Latest Contact Info) Description 05/14/2024 10:20 AM CDT Appointment Department of Laboratory Medicine and Pathology, [facility] in [place], [place] [address] [place] [address] Lisandro Borja M.D. [address] [place] [address] 05/14/2024 11:00 AM CDT Procedure visit Department of Urology in [place], [place] [address] [place] [address] Lisandro Borja M.D. [address] [place] [phone] 05/14/2024 11:30 AM CDT Office Visit Department of Urology in [place], [place] [address] [place] [phone] Lisandro Borja M.D. [address] [place] [phone] 05/30/2024 2:55 PM CDT Appointment Department of Cardiovascular Diseases in [place], [place] [address] [place] [address] Derrick Malloy Jr., M.D. [address] [place] [phone] Discharge Disposition: Home or Self Care 05/31/2024 2:00 PM CDT Office Visit Department of Cardiovascular Medicine in [place], [place] [address] [place] [phone] Derrick Malloy Jr., M.D. [address] [place] [phone] documented as of this encounter Visit Diagnoses Diagnosis Stenosis Aortic Valve Acquired- Primary Prosthesis Aortic Valve Hypertension Essential Primary Hyperlipidemia On Treatment Cancer Breast Personal History documented in this encounter
== END 2024-05-07 10:33 | disposition home or self-care (01) ==
LOC: NFLDREF 05-11 03:34
PROVIDERS: PCP Internal Medicine; Referring Provider Internal Medicine; Visit Provider Internal Medicine
DX: Z79.01 Long term (current) use of anticoagulants (principal)
CPT/HCPCS: 85610

== ENCOUNTER 2024-07-11 13:34 | Outpatient (REF) | payer MEDICARE, SELFPAY ==
[2024-07-11 15:04] LABS: Appearance Urine Clear (Clear); Bilirubin Urine Negative (Negative); Blood Urine 1+ (Negative); Color Urine Yellow (Yellow); Glucose Urine Negative (Negative); Ketones Urine Negative (Negative); Leukocyte Esterase Urine Negative (Negative); Nitrite Urine Negative (Negative); Protein Urine Trace (Negative); Urobilinogen Urine 0.2 (0.2-1.0); pH Urine 7.5 (5.0-8.5)
[2024-07-11 15:16] LABS: Squamous Epithelial Cell Urine Few (None-Few); WBC Urine 0-2 (0-5)
== END 2024-07-11 13:35 | disposition home or self-care (01) ==
LOC: NPINS 13:34
PROVIDERS: PCP Internal Medicine; Visit Provider Urology
DX: N28.9 Disorder of kidney and ureter, unspecified (principal)
CPT/HCPCS: 81001; 81015; 87086

== ENCOUNTER 2025-02-06 08:15 | Outpatient (CLI) | payer MEDICARE, SELFPAY | END 2025-02-06 08:16 | disposition home or self-care (01) | LOC: NFLDREF 02-08 15:21 | PROVIDERS: PCP Internal Medicine; Referring Provider Internal Medicine; Visit Provider Internal Medicine | DX: M85.80 Other specified disorders of bone density and structure, unspecified site (principal); I10 Essential (primary) hypertension; E78.5 Hyperlipidemia, unspecified | CPT/HCPCS: 80048; 80061; 82306; 84443 ==